=== PATIENT | female | born 2005 | race Caucasian/White ===

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

== ENCOUNTER 2025-02-27 15:43 | Emergency (ER) | payer OTHER, SELFPAY ==
--- OUTSIDE RECORDS SUMMARY | 2025-01-28 14:00 | XMS_ITS | Encounter Summary ---
Author Organization [facility] Address [address] [place] [address] Care Team Providers Care Packer Name Role Phone Lenny Duncan MD Primary Care Provider [phone] Reason for Visit * Reason Comments Procedure Stim check and adjus tment Encounter Details Date Type Department Care Team (Latest Contact Info) Description 01/28/2025 2:00 PM EDT Procedure Visit [facility] - [facility] [address] [place] [id number] Pina Scott MD [address] [place] [address], [address] [place] [address] Gastroparesis (Primary Dx) Social History [...] as of this encounter Progress Notes * Costa Medina MA - 01/28/2025 2:00 PM EDT [facility] - [facility]INIC CLINIC NOTE Patient: Triny Velázquez Age: 19 y.o. Sex: female : 2005 Visit Date: 01/28/2025 Visit Type: Stim check and adjustment Procedure: MOTILITY PROCEDURES: Procedure: Stimulator Adjustment (changes made) Initial Settings: Stimulator On/Off: On Voltage (V): 3.1 Power (W): 330 Rate: 14 Cycle On (sec): 0.1 Cycle Off (sec): 5 End Settings: Stimulator On/Off: On Voltage (V): 5 Power (W): 330 Rate: 14 Cycle On (sec): 1 Cycle Off (sec): 4 Battery Status: Good Impedance (ohm): 447 Additional Comments: Stim has been adjusted by Dr Sonia Medina MA [facility] 01/28/2025 Cosigned by Pina Scott MD at 01/28/2025 4:10 PM EDT Associated attestation - Pina Scott MD - 01/28/2025 4:10 PM EDT Pt in office for stimulator interrogation and adjustment - completed as documented. Pina Scott MD [facility] 01/28/2025 documented in this encounter Plan of Treatment Upcoming Encounters Date Type Department Care Team (Late st Contact Info) Description 02/28/2025 11:30 AM EDT Office Visit [facility] - [facility] [address], [address] [place] [phone] 03/22/2025 10:30 AM EST [facility] [address] [address] [facility] [address], [address] [place] [phone] documented as of this encounter Visit Diagnoses Diagnosis Gastroparesis- Primary documented in this encounter Care Teams Packer Relationship Specialty Start Date End Date Lenny Duncan MD [address] [address] [address] [place] [address] PCP - General Internal Medicine 09/10/24 documented as of this encounter
[2025-02-27] VITALS (18 sets, daily range): BP systolic 152–208; BP diastolic 85–111; PULSE 73–122; RESP 16–18; TEMP 36.8; O2SAT 94–100; BMI 52.4
--- OUTSIDE RECORDS SUMMARY | 2025-02-27 15:55 | XMS_ITS | Encounter Summary ---
Author Organization [facility] Address [address] [place] [address] Care Team Providers Care Warehouse Laborer Name Role Phone Lenny Duncan MD Primary Care Provider Encounter Details Date Type Department Care Team (Latest Contact Info) Description 01/27/2025 Travel Social History Tobacco Use Types Packs/Day [...] Description 02/28/2025 11:30 AM EDT Office Visit [facility] - [facility] [address], [address] [place] [phone] 03/22/2025 10:30 AM EST Telemedicine [facility] - [facility] [address], [address] [place] [phone] documented as of this encounter Visit Diagnoses Not on filedocumented in this encounter Care Teams Warehouse Laborer Relationship Specialty Start Date End Date Lenny Duncan MD [address] [address] [address] [place] [address] PCP - General Internal Medicine 09/10/24 documented as of this encounter
--- OUTSIDE RECORDS SUMMARY | 2025-02-27 15:55 | XMS_ITS | Encounter Summary ---
Author Organization [facility] Address [address] [place] [address] Care Team Providers Care Career Technical Education Instructor Name Role Phone Lenny Duncan MD Primary Care Provider [phone] Reason for Visit * Reason Onset Date Comments Appointment 12/29/2024 Encounter Details Date Type Department Care Team ([facility] Contact Info) Description 12/29/2024 [facility] [address] [place] [address] Stephanie Keys PA [address] [place] [address], [address] [place] [address] Appointment Social History Tobacco Use Types Packs/Day Years [...] encounter Miscellaneous Notes * Telephone Encounter - Shan Suazo - 01/03/2025 8:37 AM EDT Call Back Number: [phone] Person calling (patient/caregiver/facility/etc): Patient's Mother- Genevieve Patient's provider: Stephanie Keys Patient called to schedule New pt appt with Stephanie Keys and there is no availability. The pthad a stim procedure done 12/27/24 and needs to be seen 30 days after procedure. Please advise. If request is urgent, was a warm transfer to the clinic attempted? []Yes [x]No If yes, please document the outcome of the warm transfer: If the caller reports any of the following symptoms STOP and WARM transfer to the office: Nausea/vomiting Abdominal pain Line issues GI bleeding - rectal bleeding; vomiting blood * Telephone Encounter - LILIANE Gavin - 12/29/2024 3:56 PM EDT Call Back Number: [phone] Person calling (patient/caregiver/facility/etc): Patient's Mother- Genevieve Patient's provider: Stephanie Keys Patient called to schedule New pt appt with Stephanie Keys and there is no availability. The pthad a stim procedure done 12/27/24 and needs to be seen 30 days after procedure. Please advise. If request is urgent, was a warm transfer to the clinic attempted? []Yes [x]No If yes, please document the outcome of the warm transfer: If the caller reports any of the following symptoms STOP and WARM transfer to the office: Nausea/vomiting Abdominal pain Line issues GI bleeding - rectal bleeding; vomiting blood documented in this encounter Plan of Treatment Upcoming Encounters Date Type Department Care Team (Late st Contact Info) Description 02/28/2025 11:30 AM EDT Office Visit [facility] [address] [place] [address] Stephanie Keys PA [address] [place] [address], [address] [place] [phone] 03/22/2025 10:30 AM EST [facility] [address] [address] Stephanie Keys PA [address] [place] [address], [address] [place] [address] documented as of this encounter Visit Diagnoses Not on filedocumented in this encounter Care Teams Career Technical Education Instructor Relationship Specialty Start Date End Date Lenny Duncan MD [address] [place] [address] PCP - General Internal Medicine 09/10/24 documented as of this encounter
--- OUTSIDE RECORDS SUMMARY | 2025-02-27 15:55 | XMS_ITS | Clinical Summary ---
Author Organization [facility] Address [address] [place] [address] Care Team Providers Care Matrix Inspector Name Role Phone Becca Sin APRN Primary Care Provider [phone] Allergies No known active allergies Medications Ipratropium-Alb [...] 1 tablet by mouth Daily. 30 tablet Active pantoprazole (PROTONIX) 40 MG EC tablet Take 1 tablet by mouth Daily. Active metoclopramide (REGLAN) 10 MG tablet Take [...] Date Type Department Care Team Description 12/22/2024 Telephone [facility] [address] [place] [address] Alexander Red, DO from Last 3 Months Social History Tobacco Use Types Packs/Day Years Used Date Smoking Tobacco: Never Smokeless Tobacco: Never Tobacco Cessation:Counseling Given: No Alcohol Use Standard Drinks/Week Comments Never 0 (1 standard drink = 0.6 oz pur e alcohol) [facility] Utilities Answer Date Recorded In the past 12 months has e [employer], gas, oil, or water [employer] threatened to shut off services in your [...] GED or equivalent No 10/01/2024 Preferred Language Amharic 10/01/2024 Comments No Sex and Gender Information [...] (1 o f 2 - Standard) 2021 ANNUAL PHYSICAL 11/19/2024 HEPATITIS C SCREENING 11/19/2024 INFLUENZA VACCINE 12/10/2024 07/07/2021, 03/05/2018 TDAP/TD VACCINES (2 - Td or Tdap) 12/31/2027 12/30/2017 Pneumococcal Vaccine 0-49 Completed 2007, 2005 MENINGOCOCCAL VACCINE Aged Out 12/30/2017 No adis lupe eligible based on patient's age to complete this topic HPV VACCINES Completed 06/30/2018, 12/30/2017 [facility] Subscriber Plan / Payer (Ef fective 2024-Present) Name:Triny Velázquez Relation to Subscriber:Child Name:Ernesto Velázquez Date of :1968 (Home) [address]: [address] [place], [place] [address] [phone] Payer ID:[id number] (NAIC) Group ID:[id number] Type:PARTICIPATING PROVIDER Address: [facility] [id number] [id number] Advance Directives * CPR (Attempt to Resuscitate) (Latest Code Status on File) Date Activated Date Inactivated Comments 10/01/2024 6:03 PM 10/04/2024 8:46 PM Question Answer Comments Code Status (Patient has no pulse and is not breathing): CPR (Attempt to Resuscitate) Medical Interventions (Patie nt has pulse or is breathing): Full Support Level Of Support Discussed With: Patient Care Teams Matrix Inspector Relationship Specialty Start Date End Date Becca Sin APRN [address] [place] [address] [place] [address] PCP - General Nurse Practitioner 10/01/24
--- OUTSIDE RECORDS SUMMARY | 2025-02-27 15:55 | XMS_ITS | Encounter Summary ---
Author Organization [facility] Address [address] [place] [address] Care Team Providers Care Wood Treating Inspector Name Role Phone Lenny Duncan MD Primary Care Provider [phone] Encounter Details Date Type Department Care Team (Late Contact Info) Description 01/03/2025 Orders Only [facility] - [facility] [address] [facility] [place] [address] Fernando Flores MD [address] [address] [address] [place] [address] Social History Tobacco Use Types Packs/Day Years [...] Encounters Date Type Department Care Team (Late Contact Info) Description 02/28/2025 11:30 AM EDT [facility] [address] [place] [address] Stephanie Keys PA [address] [place] [address] 03/22/2025 10:30 AM EST Telemedicine [facility] [address] [address] Stephanie Keys PA [address], [address] [place] [address] documented as of this encounter Procedures Procedure Name Priority Date/Time Associated Diagnosis Comments PATH SCANNED RESULT Routine 12/29/2024 9:38 AM EDT documented in this encounter Results * PATH Scanned Result (12/29/2024 9:38 AM EDT) Fernando Flores MD LAB OBSERVATION METHODS Final Result documented in this encounter Visit Diagnoses Not on filedocumented in this encounter Care Teams Wood Treating Inspector Relationship Specialty Start Date End Date Lenny Duncan MD [address] [facility] [address] [place] [address] PCP - General Internal Medicine 09/10/24 documented as of this encounter
--- OUTSIDE RECORDS SUMMARY | 2025-02-27 15:55 | XMS_ITS | Encounter Summary ---
Author Organization [facility] Address [address] [place] [address] Care Team Providers Care Electric Welder Name Role Phone Lenny Duncan MD Primary Care Provider [phone] Reason for Visit * Reason Onset Date Comments Results 12/22/2024 Encounter Details Date Type Department Care Team ([facility] [address] Contact Info) Description 12/22/2024 Results Follow-Up [facility] [address] [place] [address] Pina Scott MD [address] [facility], [address] [place] [address] LEONILA SCREEN,IFA,REFLEX TITER/PATTERN,REFLEX MPLX 11 [...] as of this encounter Miscellaneous Notes * Result Encounter Note - Lise Mayorga RN - 01/18/2025 3:32 PM EDT Xerox Machine Assembler called and reviewed labs with patient. documented in this encounter Plan of Treatment Upcoming Encounters Date Type Department Care Team (Late st Contact Info) Description 02/28/2025 11:30 AM EDT Office Visit [facility] [address] [address] Stephanie Keys PA [address] [place] [address], [address] [place] [address] 03/22/2025 10:30 AM EST Telemedicine [facility] [address] [address] Stephanie Keys [address], [address] [place] [address] documented as of this encounter Visit Diagnoses Not on filedocumented in this encounter Care Teams Electric Welder Relationship Specialty Start Date End Date Lenny Duncan MD [address] [address] [address] [place] [address] PCP - General Internal Medicine 09/10/24 documented as of this encounter
--- OUTSIDE RECORDS SUMMARY | 2025-02-27 15:55 | XMS_ITS | Encounter Summary ---
Author Organization [facility] Address [address] [place] [address] Care Team Providers Care Wool Spotter Name Role Phone Lenny Duncan MD Primary Care Provider [phone] Reason for Visit * Reason Onset Date Comments general 02/25/2025 Encounter Details Date Type Department Care Team ([facility] Contact Info) Description 02/25/2025 [facility] [address] [place] [address] Stephanie Keys [address], [address] [place] [address] general Social History Tobacco Use Types Packs/Day Years [...] encounter Miscellaneous Notes * Telephone Encounter - Dona Gilman - 02/25/2025 2:56 PM EDT Patient is on the schedule for 02/28. * Telephone Encounter - LILIANE Gavin - 02/25/2025 10:47 AM EDT Call Back Number: [phone] Person calling (patient/caregiver/facility/etc): Patient's Mother-Genevieve Patient's provider: Stephanie Keys Brief description of call: The patient's mom is requesting to speak with someone in regards to getting an appointment for a stim adjustment. Please advise. If request is urgent, was [...] Description 02/28/2025 11:30 AM EDT Office Visit [facility] [address] [address] Stephanie Keys [address], [address] [place] [phone] 03/22/2025 10:30 AM EST Telemedicine [facility] [address] [address] [address] Keys [address], [address] [address] documented as of this encounter Visit Diagnoses Not on filedocumented in this encounter Care Teams Wool Spotter Relationship Specialty Start Date End Date Lenny Duncan MD [address] [facility] [address] [place] [address] PCP - General Internal Medicine 09/10/24 documented as of this encounter
--- OUTSIDE RECORDS SUMMARY | 2025-02-27 15:55 | XMS_ITS | Clinical Summary ---
Author Organization [facility] Address [address] [facility] [address] [place] [address] Care Team Providers Care Bulb Grader Name Role Phone Lenny Duncan MD Primary Care Provider [phone] Allergies No known active allergies Medications escitalopram [...] Encounters Date Type Department Care Team Description 02/25/2025 Telephone [facility] - [facility] [address] [address] Stephanie Keys PA general 01/28/2025 2:00 PM EDT Procedure Visit [facility] [address] [facility] [address] [place] [address] Pina Scott MD Gastroparesis (Primary Dx) 01/27/2025 Travel 01/03/2025 Orders Only [facility] [address] [address] Jeanette Flores MD 12/29/2024 Telephone [facility] [address] [address] Stephanie Keys PA Appointment 12/27/2024 10:30 AM EDT External Surgery [facility] [address] [place] [phone] Jeanette Flores MD 12/27/2024 Orders Only [facility] [address] [address] Jeanette Flores MD 12/22/2024 Results Follow-Up [facility] [address] [facility] [address] [place] [address] Pina Scott MD LEONILA SCREEN,IFA,REFLEX TITER/PATTERN,REFLEX MPLX 11 AB CASCADA, Comprehensive metabolic panel, C-reactive protein, Additional followed-up results: 8 12/20/2024 Telephone [facility] [address] [facility] [address] [place] [address] Jeanette Flores MD 12/03/2024 2:20 PM EDT Telemedicine [facility] [address] [facility] 202 [place] [address] Jeanette Flores MD Idiopathic gastroparesis (Primary Dx) 12/02/2024 Travel from Last 3 Months Family History Medical History Relation Name Comments Diabetes Father Rashida Velázquez Heart attack Father Rashida Velázquez Hyperlipidemia Father Rashida Velázquez [...] Mother Genevieve Velázquez Hypertension Mother Genevieve Velázquez Diabetes Paternal Grandfather Abel Velázquez Hypertension Paternal Grandfather Abel Calderonnes Bipolar disorder Paternal Grandmother Elinor Eber Mental illness Paternal Grandmother Elinor Eber Depression Sister Mannie Velázquez Relation Name Status Comments Father Rashida Velázquez Alive Maternal Grandfather Maternal Grandmother Anamaria Betsy Mother Genevieve Velázquez Alive Paternal Grandfather Abel Velázquez Alive Paternal Grandmother Elinor Velázquez Alive [...] [facility] [address] [address] [place] [address] 03/22/2025 10:30 AM EST Telemedicine [facility] [address] [address] [facility] [address], [address] [place] [address] Health Maintenance Due Date Last Done Comments HIV Screening 2005 Hepatitis C Screening 2005 MMR Vaccines (1 of 1 - Standard series) 2006 Varicella Vaccines (1 of 2 - 13+ 2-dose series) 2018 HPV Vaccines (1 - 3-dose series) 2020 Meningococcal B Vaccine (1 o f 2 - Standard) 2021 Hepatitis B Screening 09/17/2023 Depression Risk Screening 05/12/2024 SDOH Screening 05/12/2024 DTaP/Tdap/Td Vaccines (1 - Tdap) 2024 Hepatitis B Vaccines (1 of 3 - 19+ 3-dose series) 2024 Pneumococcal Vaccine (1 of 2 - PCV) 2024 COVID-19 Vaccine (1 - 2023-2 5 season) 2025 Influenza Vaccine (#1) 2025 2, 03/05/2018 Diabetes Screening 12/27/2025 12/27/2024, 11/04/2024, 11/04/2024 Zoster Vaccines (1 of 2) 09/17/2055 BMI Intervention Completed 11/22/2024 HIB Vaccines Aged Out No longer eligi ble based on patient's age to complete this topic Hepatitis A Vaccines Aged Out No long er eligible based on patient's age to complete [...] Procedure Name Priority Date/Time Associated Diagnosis Comments CONSULTATION REPORT Routine 01/04/2025 7 :25 AM EDT PATH SCANNED RESULT Routine 12/29/2024 9 :38 AM EDT SURG SCANNED ORDER Routine 12/27/2024 3: 40 PM EDT SURGICAL PATHOLOGY REPORT Routine 12/27/2024 10:52 AM EDT BMP BASIC METABOLIC PANEL STAT 12/27/2024 9:59 AM EDT HCG, SERUM, QUALITATIVE STAT 12/27/2024 9:59 AM EDT AUTODIFF STAT 12/27/2024 9:59 AM EDT CBC AND DIFFERENTIAL STAT 12/27/2024 9:59 AM EDT from Last 3 Months Results * CONSULTATION REPORT (01/04/2025 7:25 AM EDT) 01/04/2025 7:25 AM EDT [facility] - 01/04/2025 7:25 AM EDT [address] [address]- Patient: TRINY VELÁZQUEZ : 2005 19 years Gender: Female Account: [id number] Admit: 01/03/2025 10:22 EDT Discharge: 01/03/2025 23:59 EDT Admitting: OLGA FAULKNER MD-PAT Attending: OLGA FAULKNER MD-PAT Pathology Reports Received: 01/04/2025 07:25 EDT 01/14/2025 14:10 EDT - Auth (Verified) CLINICAL HISTORY: Gastroparesis DIAGNOSIS: Stomach, wedge resection: - Fragments of muscularis propria with no pathologic abnormality. At the request of Dr. Lane, a gastroparesis evaluation was performed according to the approved protocol. -CD117: 9.0 -CD68: 2.5 -MCT: 0.5 -S100: 15.0 -Trichrome: 0 - All controls reacted appropriately. Gastroparesis Histopathology Protocol (Drs. Lane and Donny) CD117 Staining Objective : Quantify interstitial cells of Cajal (ICC) in the inner muscular layer only Method : Average counts over 10 high-power mora (HPF) CD68 Staining Objective : Quantify macrophages within ganglia Method : Average counts over 10 HPF Mast cell tryptase (MCT) staining Objective : Quantify mast cells per HPF in the muscularis propria Method : Average counts over 10 HPF S100 Staining Objective : Quantify nerve nuclei in the inner muscular layer only Method : Average counts over 10 HPF Trichrome stain evaluation Objective : Assess the presence or absence of fibrosis in the muscularis propria Report Request ID: [id number] 01/14/2025 14:13 [place] [address]- Patient: TRINY VELÁZQUEZ : 2005 19 years Gender: Female Account: [id number] Admit: 01/03/2025 10:22 EDT Discharge: 01/03/2025 23:59 EDT Admitting: OLGA FAULKNER MD-PAT Attending: OLGA FAULKNER MD-PAT Pathology Reports Received: 01/04/2025 07:25 EDT DIAGNOSIS: Possible outcomes : fibrosis, no fibrosis or indeterminate Electronically signed by SEUN DAWSON Verified: 01/14/25 Signing Location: [facility], [address], [place] [address] SPECIMEN(S) RECEIVED: Materials (listed below) are received in review/consultation from Olga Faulkner MD. . [facility], [facility] [place], [address], Ph# [phone], Fax # [phone]. Corresponding pathology report(s) also received. Accession # Collected Received Slides Blocks Unstained [id number] 12/27/2024 01/04/2025 3 1 0 Block previously labeled, [id number] , now labeled, [id number] . Review/Consult performed at the request of Olga Faulkner MD. DISCLAIMER: I attest that I examined the relevant preparations for the specimens and rendered the diagnosis(es). CPT: 88625, 97321 x4, 02776 Technical testing performed at [facility], [address] [place] [address] Test systems have been developed and their performance characteristics determined by the [facility] ([facility]). Some tests have not been cleared or approved by the U.S. Food and Drug Administration (FDA). The FDA has determined that such clearance or approval is not necessary. These tests are used for clinical purposes and should not be regarded as investigational or for research. This laboratory is certified under the Clinical Laboratory Improvement Amendments of 1988 (CLIA) as qualified to perform high complexity clinical laboratory testing. Unless otherwise specified, controls reacted appropriately. The microscopic evaluation in this report may have been rendered in whole, or in part, by analyzing high-resolution digital images (whole slide images) on the [employer] Digital Pathology Platform validated at [facility]. Report Request ID: [id number] 01/14/2025 14:13 EDT us Olga Faulkner MD LAB PATHOLOGY ORDERABLES F inal Result [facility] [address] [place] [address], * PATH Scanned Result (12/29/2024 9:38 AM EDT) us Jeanette Flores MD LAB OBSERVATION METHODS Final Result * SURG SCANNED ORDER (12/27/2024 3:40 PM EDT) us Jeanette Flores MD IN CLINIC/BEDSIDE ORDERABLES F inal Result * Surgical Pathology Report (12/27/2024 10:52 AM EDT) 12/27/2024 10:5 2 AM EDT [facility] - 12/27/2024 10:52 AM EDT [address] [place] [address]- Patient: TRINY VELÁZQUEZ : 2005 19 years Gender: Female Account: [id number] Admit: 12/27/2024 08:41 EDT Discharge: 12/27/2024 23:59 EDT Admitting: JEANETTE FLORES MD-SUR Attending: JEANETTE FLORES MD-SUR Pathology Reports Received: 12/27/2024 13:45 EDT 12/28/2024 12:46 EDT - Auth (Verified) SPECIMEN: A. Gastric biopsy. CLINICAL HISTORY: Pre-op diagnosis: Idiopathic gastroparesis. DIAGNOSIS: GASTRIC WEDGE, BIOPSY: -UNREMARKABLE SMOOTH MUSCLE; NO DEFINITE GASTRIC EPITHELIUM IDENTIFIED (SEE COMMENT). Electronically signed by [facility] Verified: 12/28/24 Signing Location: [facility], [address] [place] [address] COMMENT: Case submitted for gastroparesis study, as requested MICROSCOPIC DESCRIPTION: A microscopic examination has been performed. GROSS DESCRIPTION: Received in formalin designated gastric biopsy is a curved 1.1 x 0.4 x 0.3 cm segment of glistening pink-ramirez serosa, containing a curved C-shaped 2.5 cm row of surgical kalpesh. The tissue is trimmed from the staple line and is opened to reveal apparent gastric mucosa and a small area of red discoloration. Tissue is submitted in toto in a single cassette. CC /CC /CC DISCLAIMER: I attest that I examined the relevant preparations for the specimens and rendered the diagnosis(es). CPT: 5736052.. Report Request ID: [id number] 12/28/2024 12:46 [address] [facility] [place] [address]- Patient: TRINY VELÁZQUEZ : 2005 19 years Gender: Female Account: [id number] Admit: 12/27/2024 08:41 EDT Discharge: 12/27/2024 23:59 EDT Admitting: JEANETTE FLORES MD-SUR Attending: JEANETTE FLORES MD-SUR Pathology Reports Received: 12/27/2024 13:45 EDT DISCLAIMER: Selected block for future studies: _ Technical testing performed at [facility], [address] [place] [address] Report Request ID: [id number] 12/28/2024 12:46 EDT Jeanette Flores MD LAB PATHOLOGY ORDERABLES Final Result Performing Organization Address City/State/[facility] [place] [address], * (ABNORMAL) AUTODIFF (12/27/2024 9:59 AM EDT) NEUT % 59.7 34.0 - 75.0 % 12/27/2024 10:09 AM EDT [facility] Remisol 2.0 SS LYMPH % 24.9 17.0 - 53.0 % 12/27/2024 10:09 AM EDT [facility] Remisol 2.0 SS MONO % 13.3(H) 2.0 - 12.0 % 12/27/2024 10:09 AM EDT [facility] Remisol 2.0 SS EOS % 1.3 0.0 - 7.0 % 12/27/2024 10:09 AM EDT [facility] Remisol 2.0 SS BASO % 0.8 0.0 - 3.0 % 12/27/2024 10:09 AM EDT [facility] Remisol 2.0 SS NEUT # 5.1 1.5 - 7.1 x10(3)/ul 12/27/2024 10:09 AM EDT [facility] Remisol 2.0 SS LYMPH # 2.1 1.0 - 3.5 x10(3)/ul 12/27/2024 10:09 AM EDT [facility] Remisol 2.0 SS MONO # 1.1(H) 0.0 - 1.0 x10(3)/ul 12/27/2024 10:09 AM EDT [facility] Remisol 2.0 SS EOS # 0.1 0.0 - 0.7 x10(3)/ul 12/27/2024 10:09 AM EDT [facility] Remisol 2.0 SS BASO # 0.1 0.0 - 0.3 x10(3)/ul 12/27/2024 10:09 AM EDT [facility] Remisol 2.0 SS Blood 12/27/2024 9:59 AM EDT 12/27/2024 10:02 AM EDT [facility] LAB - 12/27/2024 10:09 AM EDT Ordered by Discern Expert. Performed by [facility], [address] [place] [address] us Jeanette Flores MD LAB BLOOD ORDERABLES Final Res ult [facility] [address] [place] [address], [facility] Remisol 2.0 SS Pathology Department [address] [place] [address] * (ABNORMAL) CBC With Differential (12/27/2024 9:59 AM EDT) WBC 8.5 4.0 - 10.8 x10(3)/ul 12/27/2024 10:09 AM EDT [facility] Remisol 2.0 SS RBC 5.40(H) 3.77 - 5.16 x10(6)/ul 12/27/2024 10:09 AM EDT [facility] Remisol 2.0 SS HGB 13.2 12.0 - 16.0 Gram/dL 12/27/2024 10:09 AM EDT [facility] Remisol 2.0 SS Hematocrit 40.3 35.0 - 45.0 % 12/27/2024 10:09 AM EDT [facility] Remisol 2.0 SS MCV 74.6(L) 79.4 - 94.8 fL 12/27/2024 10:09 AM EDT [facility] Remisol 2.0 SS MCH 24.4(L) 25.6 - 32.2 pg 12/27/2024 10:09 AM EDT [facility] Remisol 2.0 SS MCHC 32.7 32.3 - 36.5 Gram/dL 12/27/2024 10:09 AM EDT [facility] Remisol 2.0 SS RDW 15.7(H) 11.0 - 15.5 % 12/27/2024 10:09 AM EDT [facility] Remisol 2.0 SS Platelets 287 140 - 420 x10(3)/ul 12/27/2024 10:09 AM EDT [facility] Remisol 2.0 SS MPV 6.9(L) 8.7 - 12.0 fL 12/27/2024 10:09 AM EDT [facility] Remisol 2.0 SS SLIDE REVIEW NONE 12/27/2024 10:09 AM EDT [facility] Remisol 2.0 SS Blood 12/27/2024 9:59 AM EDT 12/27/2024 10:02 AM EDT [facility] LAB - 12/27/2024 10:09 AM EDT Performed by [facility], [address] [place] [address] us Jeanette Flores MD LAB BLOOD ORDERABLES Final Res ult [facility] [address] [place] [address], [facility] Remisol 2.0 SS Pathology Department [address] [place] [address] * hCG, serum, qualitative (12/27/2024 9:59 AM EDT) hCG Qual neg Negative 12/27/2024 10: 18 AM EDT [facility] SS Blood 12/27/2024 9:59 AM EDT 12/27/2024 10:02 AM EDT [facility] - 12/27/2024 10:18 AM EDT Performed by [facility], [address] [place] [address] us Kameron Law MD LAB BLOOD ORDERABLES Final Result [facility] [address] [place] [address], [facility] SS Pathology Department [address] [place] [address] * (ABNORMAL) Basic Metabolic Panel (12/27/2024 9:59 AM EDT) Glucose 94 74 - 109 mg/dL 12/27/2024 10:30 AM EDT [facility] Remisol 2.0 SS BUN 8 7 - 25 mg/dL 12/27/2024 10:30 AM EDT [facility] Remisol 2.0 SS Creatinine 0.84 0.60 - 1.20 mg/dL 12/27/2024 10:30 AM EDT [facility] Remisol 2.0 SS Sodium 136 136 - 145 mmol/L 12/27/2024 10:30 AM EDT [facility] Remisol 2.0 SS Potassium 2.8(A) 3.5 - 5.1 mmol/L 12/27/2024 10:30 AM EDT [facility] Remisol 2.0 SS Comment:Critical Result S_K: 2.8 Called to and read back by: PRADIP MORE at: 12/27/2024 10:30:13 by:NAD [id number] Chloride 91(L) 98 - 110 mmol/L 12/27/2024 10:30 AM EDT [facility] Remisol 2.0 SS CO2 33(H) 21 - 31 mmol/L 12/27/2024 10:30 AM EDT [facility] Remisol 2.0 SS Anion Gap 12.0(H) 2.0 - 11.0 12/27/2024 10:30 AM EDT [facility] Remisol 2.0 SS Calcium 9.7 8.6 - 10.2 mg/dL 12/27/2024 10:30 AM EDT [facility] Remisol 2.0 SS BUN/Creatinine Ratio 9.5 6.0 - 22.0 12/27/2024 10:30 AM EDT [facility] Remisol 2.0 SS EGFR 103 >=60 mL/min/1.7 3m2 12/27/2024 10:30 AM EDT [facility] Remisol 2.0 SS Comment:eGFR calculation per formed using the CKD-EPI 2020 equation (race variable excluded) Blood 12/27/2024 9:59 AM EDT 12/27/2024 10:02 AM EDT [facility] - 12/27/2024 10:30 AM EDT Performed by [facility], [address] [place] [address] Jeanette Flores MD LAB BLOOD ORDERABLES Final Res ult [facility] [address] [place] [address], [facility] Remisol 2.0 SS Pathology Department [address] [place] [address] from [place] [address] [place] [id number] JOSE HARDIN Care Teams Bulb Grader Relationship Specialty Start Date End Date Lenny Duncan MD [address] [facility] [address] [place] [address] PCP - General Internal Medicine 09/10/24
--- OUTSIDE RECORDS SUMMARY | 2025-02-27 15:55 | XMS_ITS | Encounter Summary ---
Author Organization [facility] Address [address] [place] [address] Care Team Providers Care Product Planner Name Role Phone Lenny Duncan MD Primary Care Provider [phone] Encounter Details Date Type Department Care Team (Late Contact Info) Description 12/27/2024 Orders Only [facility] [address] [facility] [address] [place] [address] Fernando Flores MD [address] [address] [address] [place] [address] Social History Tobacco Use Types [...] Description 02/28/2025 11:30 AM EDT [facility] [address] [facility] [address] [place] [address] Stephanie Keys PA [address] [facility] [place] [address] 03/22/2025 10:30 AM EST Telemedicine [facility] [address] [address] Stephanie Keys PA [address] [facility], [address] [place] [address] documented as of this encounter Procedures Procedure Name Priority Date/Time Associated Diagnosis Comments SURG SCANNED ORDER Routine 12/27/2024 3:40 PM EDT documented in this encounter Results * SURG SCANNED ORDER (12/27/2024 3:40 PM EDT) us Fernando Flores MD IN CLINIC/BEDSIDE ORDERABLES F inal Result documented in this encounter Visit Diagnoses Not on filedocumented in this encounter Care Teams Product Planner Relationship Specialty Start Date End Date Lenny Duncan MD [address] [facility] [address] [place] [address] PCP - General Internal Medicine 09/10/24 documented as of this encounter
--- NOTE | 2025-02-27 15:59 | ED_ITS ---
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 Indication:: Ultrasound-guided line placement Indication: - Difficult IV access, numerous unsuccessful pokes Identified structures: - Right basilic vein near the AC joint Location/access site: - Right basilic vein near the AC joint Vessel patency: - Patent Direct visualization? - Yes Impression: Successful 18 g catheter in left upper extremity cephalic vein Images were not saved to permanent archive The study was technically adequate Critical Care <GENEVIEVE Munoz - Last Filed: 02/27/25 21:52> Critical Care Time Critical Care Time: No
--- NOTE | 2025-02-27 16:33 | ECG_ITS ---
APPROVED REPORT Exam: Resting ECG HR:77 bpm ECG Measurements Heart Rate 77 AXES HI 116 P 51 QRSd 91 QRS 57 QT 388 T 31 QTc 420 Conclusion SINUS RHYTHM WITH SHORT HI INTERVAL NONSPECIFIC T-WAVE ABNORMALITY BORDERLINE ECG WARNING: DATA QUALITY MAY AFFECT INTERPRETATION UNCONFIRMED REPORT Electronically signed by : GENESIS BARROS, 03/01/2025 02:52:02
[2025-02-27 16:51] LABS: Hematocrit 40.1 % (37.0-47.0); Hemoglobin 12.6 g/dL (12.2-16.2); Immature Granulocytes % 1.4 %; Mean Corpuscular HGB Conc 31.4 g/dL (31.8-35.4); Mean Corpuscular Hemoglobin 23.4 pg (27.0-31.2); Mean Corpuscular Volume 74.5 fl (81-99); Nucleated Red Blood Cells % 0 %; Platelet Count 395 K/mm3 (142-424); Red Blood Count 5.38 M/mm3 (4.20-5.40); Red Cell Distribution Width-SD 40.8 fL; White Blood Count 21.3 K/mm3 (4.5-13.0)
--- NOTE | 2025-02-27 16:51 | ECG_ITS ---
APPROVED REPORT Exam: Resting ECG HR:76 bpm ECG Measurements Heart Rate 76 AXES TN 116 P 43 QRSd 94 QRS 39 QT 409 T 12 QTc 439 Conclusion SINUS RHYTHM WITH SHORT TN INTERVAL NONSPECIFIC T-WAVE ABNORMALITY BORDERLINE ECG UNCONFIRMED REPORT Electronically signed by : GENESIS BARROS, 03/01/2025 02:51:52
[2025-02-27 16:57] LABS: Albumin Level 4.7 g/dl (3.5-5.0); Chloride 95 mmol/L (98-107)
[2025-02-27 16:58] LABS: Sodium 136 mmol/L (136-145)
[2025-02-27] MEDS: droPERidol 5MG/2ML VIAL 1.25 MG IV (16:59)
[2025-02-27 17:00] LABS: Alanine Aminotransferase 21 U/L (12-78); Anion Gap 18.9 mEq/L (5-15); Aspartate Amino Transferase 27 U/L (14-36); Blood Urea Nitrogen 13 mg/dl (7-17); Carbon Dioxide 25 mmol/L (22.0-30.0); Creatinine Clearance Estimated 114 mL/min (50-200); Creatinine,Serum 0.80 mg/dl (0.52-1.04); Estimated Glomerular Filt Rate 92 ml/min (>60); GFR (African American) 112 ML/MIN (>60)
[2025-02-27] MEDS: LACTATED RINGERS 1000ML 1,000 ML 999 ML IV (17:00)
[2025-02-27 17:01] LABS: Albumin/Globulin Ratio 1.4 (1.1-1.8); Alkaline Phosphatase 161 U/L (38-126); Bilirubin,Total 1.0 mg/dl (0.2-1.3); Calcium 9.3 mg/dl (8.4-10.2); Globulin 3.4 g/dL (1.3-3.2); Glucose 108 mg/dl (74-100); Lipase 37 U/L (23-300); Magnesium 1.6 mg/dl (1.6-2.3); Total Protein,Serum 8.1 g/dl (6.3-8.2)
[2025-02-27 17:03] LABS: Potassium 2.9 mmoL/L (3.5-5.1)
--- NOTE | 2025-02-27 17:07 | PC.NURSE ---
notified of 2.9 K+.
[2025-02-27 18:34] LABS: Microscopic, Urine URINE MICROSCOPIC (MICROSCOPIC)
[2025-02-27 18:37] LABS: Color,Urine YELLOW (Yellow); Glucose,Urine (UA) Negative (Negative); Ketones,Urine 3+ (Negative); Leukocyte Esterase,Urine Negative (Negative); PH,Urine 6.0 (5.0-8.5); Protein,Urine Negative (Negative); Specific Gravity, Urine 1.015 (1.005-1.030); Urine Pregnancy, HCG Qual. Negative (Negative); Urobilinogen,Urine 0.2 EU/dl (0.2)
--- NOTE | 2025-02-27 18:38 | CT_ITS ---
PROCEDURE INFORMATION: Exam: CT Abdomen And Pelvis With Contrast Exam date and time: 02/27/2025 7:55 PM Age: 19 years old Clinical indication: Nausea and vomiting; Abdominal pain; Additional info: Abd pain, n/v, d, history of gastric stimulator TECHNIQUE: Imaging protocol: Computed tomography of the abdomen and pelvis with contrast. Radiation optimization: All CT scans at this facility use at least one of these dose optimization techniques: automated exposure control; mA and/or kV adjustment per patient size (includes targeted exams where dose is matched to clinical indication); or iterative reconstruction. Contrast material: ISOVUE; Contrast volume: 75 ml; Contrast route: IV; COMPARISON: CT ABDOMEN PELVIS W CON 09/04/2024 9:30 AM FINDINGS: Tubes, catheters and devices: Gastric stimulator is noted. Liver: Mild fatty infiltration of the liver along the falciform ligament. Gallbladder and biliary ducts: Normal. No calcified stones. No ductal dilation. Pancreas: Normal. No ductal dilation. Spleen: Normal. No splenomegaly. Adrenal glands: Normal. No mass. Kidneys and ureters: Normal. No hydronephrosis. Stomach and bowel: The majority of the colon is collapsed, which is a nonspecific appearance that can correlate with colitis in the appropriate clinical setting. Appendix: Unremarkable appendix. Intraperitoneal space: Unremarkable. No free air. No significant fluid collection. Vasculature: Unremarkable. No abdominal aortic aneurysm. Lymph nodes: Unremarkable. No enlarged lymph nodes. Urinary bladder: Unremarkable as visualized. Reproductive: Unremarkable as visualized. Bones/joints: Unremarkable. No acute fracture. Soft tissues: Tiny fat containing umbilical hernia. IMPRESSION: The majority of the colon is collapsed, which is a nonspecific appearance that can correlate with colitis in the appropriate clinical setting.
[2025-02-27 18:42] LABS: Bilirubin,Urine 1+ (Negative)
[2025-02-27 18:48] LABS: Barbiturates Screen,Urine Negative ng/ml (<200); Benzodiazepines Screen,Urine Negative ng/ml (<200)
[2025-02-27 18:49] LABS: Amphetamine/Metha Screen,Urine Negative ng/ml (<1000)
[2025-02-27 18:51] LABS: Methadone Screen,Urine Negative ng/ml (<300)
[2025-02-27 18:52] LABS: Opiate Screen,Urine Negative ng/ml (<300); Phencyclidine Screen,Urine Negative ng/ml (<25)
[2025-02-27] MEDS: SODIUM CHLORIDE 0.9% 10ML SYR (RAD ONLY) 10 ML IV ×2 (19:55→20:19)
[2025-02-27] MEDS: IOPAMIDOL-370 (76%);100ML BOTTLE 75 ML IV (19:55)
[2025-02-27] MEDS: droPERidol 5MG/2ML VIAL 0.625 MG IV (20:18)
== END 2025-02-27 22:26 | disposition home or self-care (01) ==
PROVIDERS: Physician Assistant; Emergency Provider Student in an Organized Health Care Education/Training Program; PCP Nurse Practitioner Family
DX: R11.15 Cyclical vomiting syndrome unrelated to migraine (principal); F12.288 Cannabis dependence with other cannabis-induced disorder; E87.6 Hypokalemia; K31.84 Gastroparesis; E66.01 Morbid (severe) obesity due to excess calories; F17.290 Nicotine dependence, other tobacco product, uncomplicated
CPT/HCPCS: 74177; 80053; 80307; 81001; 81025; 83690; 83735; 85025; 93005; 96361; 96365; 96375; 96376; 99285; J1790; J3480; J7120; Q9967

== ENCOUNTER → 2025-04-27 20:36 | Outpatient (CLI) | payer OTHER, SELFPAY ==
--- OUTSIDE RECORDS SUMMARY | 2025-02-28 10:30 | XMS_ITS | Encounter Summary ---
Author Organization [facility] Address [address] [place] [address] Care Team Providers Care Theatre Arts Professor Name Role Phone Lenny Duncan MD Primary Care Provider [phone] Reason for Referral * Consultation (Routine) - Pending Review Specialty Diagnoses / Procedures Referred By Contac t Referred To Contact Diagnoses Colitis, not otherwise specified Procedures Colonoscopy Stephanie Keys PA [address] [place] [address], [address] [place] [phone] Phone: tel: fax: Referral ID Status Reason Start Date Expiration Date V isits Requested Visits Authorized [id number] Pending Review 02/28/2025 03/30/2026 1 1 Reason for Visit * Reason Comments Gastroparesis Encounter Details Date Type Department Care Team ([facility] Contact Info) Description 02/28/2025 11:30 AM EDT Office Visit [facility] [address] [address] Stephanie Keys PA [address] [place] [address], [address] [place] [phone] Colitis, not otherwise specified (Primary Dx); Gastroparesis Social History Tobacco Use Types Packs/Day Years Used Date Smoking Tobacco: Never Passive Smoke Exposure: Never Smokeless Tobacco: Current Alcohol Use Standard Drinks/Week Comments Not Currently 0 (1 standard drink = 0.6 oz pur e alcohol) AUDIT-C Answer Date Recorded Q1: How often do you have a drink containing alc ohol? Monthly or less 02/28/2025 Q2: How many drinks containi ng alcohol do you have on a typical day when you are drinking? 1 or 2 02/28/2025 Frequency of Binge Drinking Not on file 02/10 Comments No Sex and Gender Information Value Date Recorded Sex Assigned at Not on file Legal Sex Female 12:01 PM EST Gender Identity Not on file Sexual Orientation Not on file documented as of this encounter Last Filed Vital Signs Vital Sign Reading Time Taken Comments Blood Pressure 139/87 02/28/2025 11:46 AM EDT Pulse 101 02/28/2025 11:46 AM EDT Temperature 36.6 C (97.8 F) 02/28/2025 11:46 AM EDT Respiratory Rate 16 02/28/2025 11:46 AM EDT Oxygen Saturation 98% 02/28/2025 11:46 AM EDT Inhaled Oxygen Concentration - - Weight 153 kg (337 lb 3.2 oz) 02/28/2025 11:46 A M EDT Height 172.7 cm (5' 8 ) 02/28/2025 11:46 AM EDT Body Mass Index 51.27 02/28/2025 11:46 AM EDT documented in this encounter Functional Status * Alcohol Use Question Answer Date of Assessment Author Q1: How often do you have a drink containing alcohol? Monthly or less 02/28/2025 11:46 AM EDT Avery Martinez MA Q2: How many drinks containing alcohol do you have on a typical day when you are drinking? 1 or 2 02/28/2025 11:46 AM EDT Marycarmen Martinez MA documented as of this encounter Progress Notes * GENEVIEVE Crook - 02/28/2025 11:30 AM EDT [facility] CLINIC NOTE Patient: Triny Velázquez Age: 19 y.o. Sex: female : 2005 Visit Date: 02/28/2025 Visit Type: Follow-up Chief Complaint Patient presents with Gastroparesis History of Present Illness HPI: Pt is 19 YO F with idiopathic gastroparesis last seen in office November 2024 for gastric stimulator trial and presents today for follow up on implant of gastric stimulator completed by Dr. Flores 12/27/24. Pt had first adjustment made 01/28/25. Today patient notes that she has just started a new job 4 days ago and had her orientation that date which made her very anxious and she feels this has caused her to have a flare. She states in general she is still struggling to figure out what foods toeat; she states she was told following surgery that she would be able to eat anything she wanted towithout restriction but she has found she will still vomit after eating anything spicy or fried. She was seen in her local ER yesterday - do not have access to these records but pt states she was told her white count was elevated and she had a CT abdomen showing evidence of colitis. She notes sincesurgery if she lays on her abdomen she will experience a cramping sensation. She does request a work excuse for 02/25 and 02/26 as well as a letter requesting more frequent breaks. Symptom Scores (Patient-Reported): 02/28/2025 11:50 AM 11/22/2024 3:01 PM 11/10/2024 1:43 PM Upper Symptoms Vomiting 4 1 0 Nausea 4 1 1 Anorexia/Early Satiety 3 1 2 Bloating/Distension 4 0 2 Abdominal Pain 4 0 0 Total UGI Score 19 3 5 02/28/2025 11:50 AM 11/22/2024 3:01 PM 11/10/2024 1:43 PM Middle GI Symptoms GERD 4 1 1 Dysphagia 0 0 0 02/28/2025 11:50 AM 11/22/2024 3:01 PM 11/10/2024 1:43 PM Lower GI Symptoms Diarrhea 2 0 0 Constipation 2 0 0 Frequent Urination 1 0 0 Infrequent Urination 0 0 0 Total LGI Score 5 0 0 Fill-Out (then right click table and refresh) [...] Ambulatory Problems Past Medical History: Diagnosis Date Anxiety state 2017 Asthma 2022 Depressive disorder 2018 Esophageal reflux December 2023 Essential hypertension August 2024 H/O: deliberate self harm Liver disease Nausea with vomiting November 2024 Nonspecific abnormal electrocardiogram (ECG) (EKG) Jun 2024 Other, mixed, or unspecified drug abuse, unspecified use Unsure Sleep apnea Surgical History[1] Current Outpatient Medications Medication Instructions albuterol 108 (90 Base) MCG/ACT inhaler 2 puffs, Every 6 hours PRN Cariprazine HCl 1.5 mg, Daily escitalopram (LEXAPRO) 20 mg, Daily haloperidol (HALDOL) 5 mg, 3 times daily levocetirizine (XYZAL) 5 mg LORazepam (ATIVAN) 1 mg, Daily PRN Melatonin 5 mg metoclopramide (REGLAN) 10 mg, 2 times daily omeprazole (PRILOSEC) 40 mg, 2 times daily before meals ondansetron (ZOFRAN) 4 mg, Every 6 hours PRN pantoprazole (PROTONIX) 40 mg, 2 times daily RT Potassium Chloride 20 MEQ/15ML (10%) solution TAKE 15 ML BY MOUTH ONCE DAILY promethazine (PHENERGAN) 50 mg, Every 8 hours PRN traZODone (DESYREL) 50 mg, Daily Allergies[2] Social History[3] Family History[4] Review of Systems Review of Systems Constitutional: Negative. Respiratory: Negative. Cardiovascular: Negative. Gastrointestinal: As noted in HPI. Vitals Vitals: 02/28/25 1146 BP: 139/87 Pulse: 101 Resp: 16 Temp: 97.8 ??F (36.6 ??C) TempSrc: Temporal SpO2: 98% Weight: (!) 337 lb 3.2 oz (153 kg) Height: 5' 8 (1.727 m) Physical Exam Physical Exam Vitals and nursing note reviewed. Constitutional: Appearance: Normal appearance. She is obese. HENT: Head: Normocephalic and atraumatic. Right Ear: External ear normal. Left Ear: External ear normal. Nose: Nose normal. Mouth/Throat: Mouth: Mucous membranes are moist. Pulmonary: Effort: Pulmonary effort is normal. Abdominal: General: Abdomen is flat. Palpations: Abdomen is soft. Comments: GES in RLQ. Musculoskeletal: General: Normal range of motion. Cervical back: Normal range of motion. Skin: General: Skin is warm and dry. Neurological: Mental Status: She is alert and oriented to person, place, and time. Psychiatric: Mood and Affect: Mood normal. Behavior: Behavior normal. Thought Content: Thought content normal. Motility Procedures Data Lab Results Component Value Date HCT 40.3 12/27/2024 PLT 287 12/27/2024 NA 136 12/27/2024 K 2.8 (A) 12/27/2024 CL 91 (L) 12/27/2024 CO2 33 (H) 12/27/2024 BUN 8 12/27/2024 CREATININE 0.84 12/27/2024 AST 16 11/04/2024 ALT 18 11/04/2024 BILITOT [...] Service 5 Total Score 11 Impression 1. Colitis, not otherwise specified 2. Gastroparesis Plan Gastroparesis -s/p gastric stimulator implant 12/27/24; first adjustment made to settings 01/28/25 -gastric stimulator interrogated, settings increased -long discussion about diet - discussed that eventually the hope is she will be able to tolerate a wider variety of foods but for now encourage her to continue to follow GP diet; avoidance of triggerfoods, as well as eating smaller portions more frequently. Provided copy of GP diet in office Reported colitis on CT scan -per patient seen in local ER yesterday with CT showing colitis -will order colonoscopy for further evaluation -patient may decide to pursue locally, if she does she can let us know to cancel F/u as scheduled Nov - if sx stable okay to r/s to 3 months Will provide work excuse for 02/25 and 02/26 as well as additional letter requesting more frequent breaks as needed No orders of the defined types were placed in this encounter. No follow-ups on file. Complexity/Risk Attestation: Data Complexity: LIMITED - I ordered or reviewed >=2 of the following: unique lab(s)/test(s), unique source external note(s) OR obtained history from an independent historian Diagnosis Complexity: MODERATE - One or more chronic illnesses with exacerbation, progression, or side effects of treatment Encounter Risk: MODERATE - Diagnostic endoscopies with no identified risk factors Physician Micromatic Hone Operator Supervision Attestation: The Supervising Physician Pina Scott was available to me by telecommunication.. No new problems were diagnosed during the visit, any/all problem(s) managed today have been managed previously by a physician in this practice. GENEVIEVE Crook [facility] 02/28/2025 [1] Past Surgical History: Procedure Laterality Date ESOPHAGOGASTRODUODENOSCOPY September 2024 [2] No Known Allergies [3] Social History Tobacco Use Smoking status: Never Passive exposure: Never Smokeless tobacco: Current Vaping Use Vaping status: Former Substances: Nicotine, THC Substance Use Topics Alcohol use: Not Currently Drug use: Yes Types: Marijuana [4] Family History Problem Relation Name Age of Onset Ulcers Maternal Grandmother Anamaria Betsy Arthritis Maternal Grandmother Anamaria [place]auer[place] Diabetes Maternal Grandmother Anamaria Betsy Heart disease Maternal Grandmother Anamaria Betsy Hyperlipidemia Maternal Grandmother Anamaria Betsy Hypertension Maternal Grandmother Anamaria Betsy Miscarriages / Stillbirths Maternal Grandmother Anamaria [place]auer[place] Colon polyps Maternal Grandfather Asthma Mother Genevieve Velázquez Cancer Mother Genevieve Velázquez Diabetes Mother Genevieve Velázquez Hyperlipidemia Mother Genevieve Velázquez Hypertension Mother Genevieve Velázquez Diabetes Father Ernesto Caldreonnes Hyperlipidemia Father Ernesto Velázquez Hypertension Father Ernesto Velázquez Mental illness Paternal Grandmother Elinor Velázquez Bipolar disorder Paternal Grandmother Elinor Velázquez Depression Sister Mannie Velázquez Diabetes Paternal Grandfather Abel Velázquez Hypertension Paternal Grandfather Abel Velázquez Heart attack Father Ernesto Velázquez 30 - 39 documented in this encounter Plan of Treatment Scheduled Orders Name Type Priority Associated Diagnoses Orde r Schedule Colonoscopy Endoscopy Routine Colitis, not otherwise specified Expected: 02/28/2025 (Approximate), Expires: 02/28/2026 documented as of this encounter Visit Diagnoses Diagnosis Colitis, not otherwise specified- Primary Gastroparesis documented in this encounter Care Teams Theatre Arts Professor Relationship Specialty Start Date End Date Lenny Duncan MD [address] [place] [address] [address] [place] [id number] PCP - General Internal Medicine 09/10/24 documented as of this encounter
--- OUTSIDE RECORDS SUMMARY | 2025-03-03 15:16 | XMS_ITS | Encounter Summary ---
[facility] Address [address] [place] [address] Care Team Providers Care Convenience Store Clerk Name Role Phone SinBecca MARYANN Primary Care Provider [phone] Reason for Visit * Reason Comments Vomiting * Auth/Cert Specialty Diagnoses / Procedures Referred By Contac t Referred To Contact Diagnoses Intractable nausea and vomiting Referral ID Status Reason Start Date Expiration Date Visits Re quested Visits Authorized [id number] 1 1 Encounter Details Date Type Department Care Team (Late st Contact Info) Description 03/03/2025 4:16 PM EDT - 03/04/2025 4:52 PM EDT Hospital Encounter [facility] [address] [place] [id number] Martha Deras MD [address] [place] [address] Mustapha Canales, [address] [facility] [address] [place] [address] Eduar Emmanuel MD [address] [facility] [address] [place] [address] Intractable nausea and vomiting (Primary Dx); Gastroparesis; Hypokalemia; Dehydration; Cannabis use disorder Discharge Disposition: Home or Self Care Social History Tobacco Use Types Packs/Day Years Used Date Smoking Tobacco: Never Smokeless Tobacco: Never Alcohol Use Standard Drinks/Week Comments Yes 0 (1 standard drink = 0.6 oz pur e alcohol) [facility] Utilities Answer Date Recorded In the past 12 months has th e [employer] oil, or water [employer] threatened to shut off services in your home? No 10/01/2024 Exercise Vital Sign Answer Date Recorde [...] things needed for daily living? No 10/01/2024 AUDIT-C Answer Date Recorded Q1: How often do you have a drink containing alc ohol? Monthly or less 03/03/2025 Q2: How many drinks containi ng alcohol do you have on a typical day when you are drinking? 3 or 4 03/03/2025 Q3: How often do you have si x or more drinks on one occasion? Less than monthly 03/03/2025 Abuse Screen Answer Date Recorded Feels Unsafe at Home or Work/School no 03/03/2025 Feels Threatened by Someone no 02/10 Does Anyone Try to Keep You From Having Contact with Others or Doing Things Outside Your Home? no 03/03/2025 Physical Signs of Abuse Present no 03/03/2025 Housing Stability Answer Date Recorded Current Living Arrangements home 02/10 Potentially Unsafe Housing Conditions none 03/03/2025 Family and Community Support Answer Alonso e [...] Difficulty Concentrating, Remembering or Making Decisions no 03/03/2025 Difficulty Managing Errands Independently no 03/03/2025 Education Answer Date Recorded Do you want help with school or training? For example, starting or completing job training or getting a high school diploma, GED or equivalent No 10/01/2024 Preferred Language Taiwanese 10/01/2024 Comments No Sex and Gender Information Value Date Recorded Sex Assigned at Not on file Legal Sex Female 1:04 PM EDT Gender Identity Not on file Sexual Orientation Not on file documented as of this encounter Last Filed Vital Signs Vital Sign Reading Time Taken Comments Blood Pressure 168/114 03/04/2025 11:30 AM EDT Pulse 95 03/04/2025 12:00 PM EDT Temperature 36.2 C (97.2 F) 03/04/2025 11:30 AM EDT Respiratory Rate 20 03/04/2025 11:30 AM EDT Oxygen Saturation 95% 03/04/2025 10:00 AM EDT Inhaled Oxygen Concentration - - Weight 164 kg (361 lb 8.9 oz) 03/03/2025 2:24 PM EDT Height 172.7 cm (5' 8 ) 03/03/2025 2:24 PM EDT Body Mass Index 54.97 03/03/2025 2:24 PM EDT documented in this encounter Functional Status * Calculated C-SSRS Risk Score (Lifetime/Recent) Answer Date of Assessment Author No Risk Indicated 03/03/2025 5:54 PM EDT Luisa Marshall RN * Yarnell Suicide Severity Rating Scale (Screener/Recent Self-Report) Question Answer Date of Assessment Author 1. Wish to be (Past 1 Month) No 025 5:54 PM EDT Luisa Marshall RN 2. Non-Specific Active Suici apolonia Thoughts (Past 1 Month) No 03/03/2025 5:54 PM EDT Mago Marshall RN 6. Suicidal Behavior (Lifetime) No 5:54 PM EDT Luisa Marshall, CHIP documented as of this encounter Discharge Summaries * Eduar Emmanuel MD - 03/04/2025 4:06 PM EDT Images from the original note were not included. [facility] Medicine Services DISCHARGE SUMMARY Patient Name: Triny Velázquez : 2005 Date of Admission: 03/03/2025 4:16 PM Date of Discharge: 03/04/2025 Primary Care Physician: Becca Sin APRN Consults No orders found for last 30 day(s). Hospital Course Presenting Problem: nausea and vomiting Active Hospital Problems Diagnosis POA ??? Intractable nausea and vomiting [R11.2] Yes ??? Gastroparesis [K31.84] Yes Resolved Hospital Problems No resolved problems to display. Hospital Course: Triny Velázquez is a 19 y.o. female who presented to [facility] with a 1-day history of intractable nausea and vomiting. She has a history of chronic gastroparesis and was found to have significant hypokalemia upon arrival at our emergency department. She has a history of a gastric stimulator that was placed at the [facility] earlier this year in December. She has a known diagnosis of gastroparesis and has been under the care of gastroenterologists at [facility]. She also reports she sees GI Dr Alexis locally. In 12/2024, she had a gastric stimulator implanted. This is her first flare-up since the implantation. Her current symptoms began last , characterized by frequent vomiting. She sought emergency care in [facility] on Friday evening, where she received IV fluids and was later discharged. She was discharged due to a scheduled appointment at the motility clinic on Friday, during which her stimulator settings were adjusted. It is believed that anxiety may have triggered this episode per her mother, she has recently started a new job.This pollack her 10th hospitalization within a year per their report. She has an upcoming online visit with the motility clinic in 03/2025, during which a colonoscopy is planned. N/V H/o gastroparesis - the morning following admission, the patient requested to start a clear liquid diet, which was advanced to solid foods without difficulty. - UDS positive for THC -- discussed possible cannibis hyperemesis syndrome with the patient (and with the patient's permission, discussed with her mother as well). Advised complete cessation of marijuana and THC use. Ms Velázquez is resistant to this suggestion. She states she was previously diagnosedwith cannibis hyperemesis syndrome, but smokes marijuana much less now, and only when she feels it will help her eat. I suggested she discuss this further with her local transfer and pumphouse operator and with the motility clinic at [facility]. - follow up with her motility clinic as scheduled and with GI Dr Alexis at the next available appt. Hypokalemia - potassium replacement protocol initiated. K 3.1 on the morning of discharge, additional potassiumprovided before sending the patient home. - follow up with PCP next week with BMP Liver lesions - two hypodense liver lesions noted on CT abdomen pelvis. Discussed these with the patient and her mother -- they were aware of one previously, however they did not know there are two lesions now. MRI abdomen in September 2024 showed a 4.4 cm focus in the left hepatic lobe near the falciform ligament corresponding to the focal fatty infiltration. The MRI also showed 2.2 cm lesion in the right hepatic lobe near the gallbladder fossa compatible with a hepatic adenoma - suggested to the patient and mother that they followup with gastroenterology to review these CT findings with further imaging as needed. Patient and mother both say they will discuss these lesions with the patient's gastroenterology at their upcoming GI appointment Discharge Follow Up Recommendations for outpatient labs/diagnostics: CBC BMP at PCP followup Gastroenterology to review hypodense liver lesions at the patient's upcoming Day of Discharge HPI: Feels much better, eating without difficulty, no nausea. Very anxious to go home this afternoon. Review of Systems Gen: no fevers Vital Signs: Temp: [97.1 ??F (36.2 ??C)-98.9 ??F (37.2 ??C)] 97.2 ??F (36.2 ??C) Heart Rate: [64-119] 95 Resp: [18-20] 20 BP: (106-170)/(56-125) 168/114 Physical Exam: Non toxic, sitting up on the edge of the bed MM moist RRR CTAB Abd soft, NT Awake, speech clear Normal affect Pertinent and/or Most Recent Results LAB RESULTS: Lab 03/04/25 1123 03/03/25 1705 WBC 12.80* 16.78* HEMOGLOBIN 12.4 12.8 HEMATOCRIT 40.3 41.3 PLATELETS 277 318 NEUTROS ABS 11.42* 10.90* IMMATURE GRANS (ABS) 0.13* 0.16* LYMPHS ABS 0.85 3.74* MONOS ABS 0.36 1.88* EOS ABS 0.01 0.04 MCV 75.8* 74.4* Lab 03/04/25 1124 03/03/25 1705 SODIUM 138 135* POTASSIUM 3.1* 2.6* CHLORIDE 95* 89* CO2 26.7 25.4 ANION GAP 16.3* 20.6* BUN 6.1 7.8 CREATININE 0.63 0.78 EGFR 131.2 112.4 GLUCOSE 98 75 CALCIUM 9.5 9.9 MAGNESIUM 2.3* 2.0 PHOSPHORUS -- 2.7 Lab 03/04/25 1124 03/03/25 1705 TOTAL PROTEIN 7.4 7.2 ALBUMIN 4.4 4.5 GLOBULIN 3.0 2.7 ALT (SGPT) 15 20 AST (SGOT) 21 23 BILIRUBIN 0.8 0.8 ALK PHOS 109 111 LIPASE -- 17 Brief Urine Lab Results (Last result in the past 365 days) Color Clarity Blood Leuk Est Nitrite Protein CREAT Urine HCG 03/03/25 1512 Yellow Clear Negative Trace Negative Trace 03/03/25 1512 Negative Microbiology Results (last 10 days) No results found for the last [address] Abdomen Pelvis Without Contrast Result Date: 03/03/2025 CT ABDOMEN PELVIS WO CONTRAST Date of Exam: 03/03/2025 6:48 PM EDT Indication: Vomiting, upper abdominal pain. Comparison: MRI abdomen October 02, 2024, CT abdomen pelvis October 01, 2024 Technique: Axial CTimages were obtained of the abdomen and pelvis without the administration of contrast. Reconstructed coronal and sagittal images were also obtained. Automated exposure control and iterative construction methods were used. Findings: There is a hypodense area in the medial segment left lobe liver previously shown to reflect more focal fat adjacent to the falciform ligament. Additional lesion noted within the liver segment 5 by the gallbladder fossa is faintly noted measuring 2.7 cm. There is no abnormality the spleen, pancreas or adrenal glands. There is no obstructive uropathy. The bladder does not appear unusual for the degree of distention. No bowel obstruction or inflammatory bowel process is appreciated. Consultation There is a gastric stimulator device. There is no ascites. No pathologic lymphadenopathy is appreciated. An acute osseous abnormality is not definitely identified. Thereis some nonspecific small mesenteric lymph nodes which are of questionable significance this has been suggested. Impression: 1.There is a hypodense area within the medial segment left lobe liver previously shown to reflect more focal fat. Additional lesion within the liver segment 5 by the gallbladder fossa is faintly noted. 2.Gastric stimulator device. 3.There is some nonspecific small mesenteric lymph nodeswhich are of questionable significance. Electronically Signed: Peter Nicole MD 03/03/2025 7:21 PM EDT Workstation ID: [id number] I have personally reviewed the therapy plans: [] PT/OT/ ST Therapy Plans Plan for Follow-up of Pending Labs/Results: Discharge Details Discharge Medications Changes to Medications Instructions Start Date escitalopram 20 MG tablet Commonly known as: LEXAPRO What changed: when to take this 20 mg, Oral, Daily metoclopramide 10 MG tablet Commonly known as: REGLAN What changed: Another medication with the same name was removed. Continue taking this medication, and follow the directions you see here. 10 mg, 2 Times Daily Continue These Medications Instructions Start Date ALBUTEROL-IPRATROPIUM IN 90 mcg, Every 6 Hours PRN Cariprazine HCl 1.5 MG capsule capsule Commonly known as: VRAYLAR 1.5 mg, Nightly haloperidol 5 MG tablet Commonly known as: HALDOL 5 mg, 3 Times Daily PRN levocetirizine 5 MG tablet Commonly known as: XYZAL 5 mg, Every Evening linaclotide 145 MCG capsule capsule Commonly known as: LINZESS 145 mcg, Daily LORazepam 1 MG tablet Commonly known as: ATIVAN 1 mg, 3 Times Daily PRN melatonin 5 MG tablet tablet 5 mg, Nightly PRN ondansetron 4 MG tablet Commonly known as: ZOFRAN 4 mg, Every 6 Hours PRN pantoprazole 40 MG EC tablet Commonly known as: PROTONIX 1 tablet, 2 Times Daily promethazine 50 MG tablet Commonly known as: PHENERGAN 50 mg, Every 6 Hours PRN traZODone 50 MG tablet Commonly known as: DESYREL 25 mg, Nightly TUMS PO 200 mg, Daily PRN No Known Allergies Discharge Disposition: Home or Self Care Diet: Hospital: Diet Order Procedures ??? Diet: Liquid; Clear Liquid; Fluid Consistency: Thin (IDDSI 0) Standing Status: Standing Number of Occurrences: 1 Diets:: Liquid Liquid Diet:: Clear Liquid Fluid Consistency:: Thin (IDDSI 0) Activity: Restrictions or Other Recommendations: CODE STATUS: Code Status and Medical Interventions: CPR (Attempt to Resuscitate); Full Support Ordered at: 03/03/252025 Code Status (Patient has no pulse and is not breathing): CPR (Attempt to Resuscitate) Medical Interventions (Patient has pulse or is breathing): Full Support Level Of Support Discussed With: Patient No future appointments. Additional Instructions for the Follow-ups that You Need to Schedule Discharge Follow-up with PCP As directed Currently Documented PCP: Becca Sin APRN PCP Follow Up Details: follow up with PCP early next week with labs Discharge Follow-up with Specialty: follow up with GI Dr Alexis next available appointment As directed Specialty: follow up with GI Dr Alexis next available appointment Eduar Emmanuel MD 03/04/25 Time Spent on Discharge: I spent 35 minutes on this discharge activity which included: [id number] with the patient, reviewing the data in the system, coordination of the care with the nursing staff as well as consultants, documentation, and entering orders. documented in this encounter Discharge Instructions * Attachments The following attachments cannot be sent through Care Everywhere. * Slow Stomach Emptying (Gastroparesis): What to Know (Taiwanese) documented in this encounter Medications at Time of Discharge Calcium Carbonate Antacid (TUMS PO) Take 200 mg by mouth Daily As Needed. Cariprazine HCl (VRAYLAR) 1.5 MG capsule capsule Take 1 capsule by mouth Every Night. escitalopram (LEXAPRO) 20 MG tablet Take 1 tablet by mouth Daily. 30 tablet 10/05/2024 haloperidol (HALDOL) 5 MG tablet Take 1 tablet by mouth 3 (Three) Times a Day As Needed (gastroparesis flare up with zofran). Ipratropium-Albut mishel (ALBUTEROL-IPRATR OPIUM IN) Inhale 90 mcg Every 6 (Six) Hours As Needed. levocetirizine (XYZAL) 5 MG tablet Take 1 tablet by mouth Every Evening. LORazepam (ATIVAN) 1 MG tablet Take 1 tablet by mouth 3 (Three) Times a Day As Needed for Anxiety (gastroparesis flare up with phenergan). melatonin 5 MG tablet tablet Take 1 tablet by mouth At Night As Needed. metoclopramide (REGLAN) 10 MG tablet Take 1 tablet by mouth 2 (Two) Times a Day. ondansetron (ZOFRAN) 4 MG tablet Take 1 tablet by mouth Every 6 (Six) Hours As Needed for Nausea or Vomiting. pantoprazole (PROTONIX) 40 MG EC tablet Take 1 tablet by mouth 2 (Two) Times a Day. 10/30/2024 promethazine (PHENERGAN) 50 MG tablet Take 1 tablet by mouth Every 6 (Six) Hours As Needed for Nausea or Vomiting. traZODone (DESYREL) 50 MG tablet Take 0.5 tablets by mouth Every Night. linaclotide (LINZESS) 145 MCG capsule capsule Take 1 capsule by mouth Daily. documented as of this encounter H&P Notes * Mustapha Canales, DO - 03/03/2025 8:42 PM EDT Images from the original note were not included. [facility] Hospital Medicine Services HISTORY AND PHYSICAL Patient Name: Triny Velázquez : 2005 Primary Care Physician: Becca Sin APRN Date of admission: 03/03/2025 Subjective Subjective Chief Complaint: Intractable N/V HPI: Triny Velázquez is a 19 y.o. female Reason for Admit: Intractable nausea and vomiting. Karol Huynh is a 19-year-old female who presented to [facility] with a 1-day history of intractable nausea and vomiting. She has a history of chronic gastroparesis and was found to have significant hypokalemia upon arrival at our emergency department. She is currently receiving IV potassium replacement. She has a history of a gastric stimulator that was placed at the [facility] earlier this year in December. She has a known diagnosis of gastroparesis and has been under the care of gastroenterologists at [facility]. In 12/2024, she had a gastric stimulator implanted. This is her first flare-up since the implantation. Her current symptoms began last , characterized by frequent vomiting. She sought emergency care in [facility] on Friday evening, where she received IV fluids and later discharged. She was discharged due to a scheduled appointment at the motility clinic on Friday, during which herstimulator settings were adjusted. It is believed that anxiety may have triggered this episode per her mother, she has recently started a new job. This pollack her 10th hospitalization within a year per their report. She has an upcoming online visit with the motility clinic in 03/2025, during which acolonoscopy is planned. Despite taking Ativan, haloperidol, Zofran, and ibuprofen at home, she found no relief. Personal History No past medical history on file. Past Surgical History: Procedure Laterality Date ??? ENDOSCOPY N/A 10/03/2024 Procedure: ESOPHAGOGASTRODUODENOSCOPY; Surgeon: Linwood John MD; Location: [facility]; Service: Gastroenterology; Laterality: N/A; Family History: family history is not on file. Social History: reports that she has never smoked. She has never used smokeless tobacco. She reports current drug use. Drug: Marijuana. She reports that she does not drink alcohol. Social History Social History Narrative ??? Not on file Medications: Available home medication information reviewed. Calcium Carbonate Antacid, Cariprazine HCl, Ipratropium-Albuterol, LORazepam, Metoclopramide HCl, escitalopram, haloperidol, levocetirizine, linaclotide, melatonin, metoclopramide, ondansetron, pantoprazole, promethazine, and traZODone No Known Allergies Objective Objective Vital Signs: Temp: [98.2 ??F (36.8 ??C)] 98.2 ??F (36.8 ??C) Heart Rate: [87-139] 113 Resp: [20] 20 BP: (148-167)/(90-125) 151/125 Physical Exam General: Anxious, resting in bed on room air. Head: Normocephalic, atraumatic. Eyes: Extraocular motions are intact. Nose: Nares patent. Throat: Moist mucous membranes. Neck: Supple, trachea midline. Cardiac: Sinus tachycardia. Respiratory: Clear to auscultation bilaterally. No rhonchi or wheezing. Abdominal: Soft, epigastric tenderness, nondistended, obese. Extremities: No clubbing, cyanosis, or edema. Neurologic: Awake, alert, oriented x3. No obvious focal deficits. Moves all extremities equally. Psychiatric: Anxious, tearful. Result Review: I have personally reviewed the results from the time of this admission to 03/03/2025 20:51 EDT and agree with these findings: [x] Laboratory list / accordion [] Microbiology [x] Radiology [] EKG/Telemetry [] Cardiology/Vascular [] Pathology [x] Old records [] Other: Most notable findings include: K 2.[address] abd/plevis with gastric stimulator device, fatty liver LAB RESULTS: Lab 03/03/25 1705 WBC 16.78* HEMOGLOBIN 12.8 HEMATOCRIT 41.3 PLATELETS 318 NEUTROS ABS 10.90* IMMATURE GRANS (ABS) 0.16* LYMPHS ABS 3.74* MONOS ABS 1.88* EOS ABS 0.04 MCV 74.4* Lab 03/03/25 1705 SODIUM 135* POTASSIUM 2.6* CHLORIDE 89* CO2 25.4 ANION GAP 20.6* BUN 7.8 CREATININE 0.78 EGFR 112.4 GLUCOSE 75 CALCIUM 9.9 MAGNESIUM 2.0 PHOSPHORUS 2.7 Lab 03/03/25 1705 TOTAL PROTEIN 7.2 ALBUMIN 4.5 GLOBULIN 2.7 ALT (SGPT) 20 AST (SGOT) 23 BILIRUBIN 0.8 ALK PHOS 111 LIPASE 17 UA 10/01/2024 15:43 03/03/2025 15:12 Urinalysis Squamous Epithelial Cells, UA 3-6 7-12 Specific Turner, UA 1.007 1.017 Ketones, UA 40 mg/dL (2+) 40 mg/dL (2+) Blood, UA Negative Negative Leukocytes, UA Trace Trace Nitrite, UA Negative Negative RBC, UA 0-2 0-2 WBC, UA 3-5 3-5 Bacteria, UA None Seen 2+ Microbiology Results (last 10 days) No results found for the last [address] Abdomen Pelvis Without Contrast Result Date: 03/03/2025 CT ABDOMEN PELVIS WO CONTRAST Date of Exam: 03/03/2025 6:48 PM EDT Indication: Vomiting, upper abdominal pain. Comparison: MRI abdomen October 02, 2024, CT abdomen pelvis October 01, 2024 Technique: Axial CTimages were obtained of the abdomen and pelvis without the administration of contrast. Reconstructed coronal and sagittal images were also obtained. Automated exposure control and iterative construction methods were used. Findings: There is a hypodense area in the medial segment left lobe liver previously shown to reflect more focal fat adjacent to the falciform ligament. Additional lesion noted within the liver segment 5 by the gallbladder fossa is faintly noted measuring 2.7 cm. There is no abnormality the spleen, pancreas or adrenal glands. There is no obstructive uropathy. The bladder does not appear unusual for the degree of distention. No bowel obstruction or inflammatory bowel process is appreciated. Consultation There is a gastric stimulator device. There is no ascites. No pathologic lymphadenopathy is appreciated. An acute osseous abnormality is not definitely identified. Thereis some nonspecific small mesenteric lymph nodes which are of questionable significance this has been suggested. Impression: Impression: 1.There is a hypodense area within the medial segment left lobe liver previously shown to reflect more focal fat. Additional lesion within the liver segment 5 by the gallbladder fossa is faintly noted. 2.Gastric stimulator device. 3.There is some nonspecific small mesentericlymph nodes which are of questionable significance. Electronically Signed: Peter Nicole MD 03/03/2025 7:21 PM EDT Workstation ID: [id number] Assessment & Plan Assessment & Plan 1. Gastroparesis - History of chronic gastroparesis with intractable nausea and vomiting - Symptoms started last , characterized by frequent vomiting - Gastric stimulator placed in 12/2024, adjusted recently - Taking Ativan, haloperidol, Zofran, and phenergan at home without significant relief - Fluids and potassium will be administered to help alleviate symptoms - Advised to consume ice chips sparingly due to potential gastric irritation - Continued monitoring and follow-up with the motility clinic are recommended 2. Hypokalemia - Significant hypokalemia upon arrival at the emergency department - Currently receiving IV potassium replacement - Repeat BMP In the AM 3. Previous hyperemesis from THC - UDS added to previous urine sample - Hot showers to help with above symptoms from N/V - Did not ask patient specifically about THC use during my exam 4. Concerns for prolonged QT - Repeat EKG ordered, patient is anxious - Hold PRN Zofran for now - Alcohol swabs, decadron, and scopolamine patch ordered to assist with the above Intractable nausea and vomiting Gastroparesis VTE Prophylaxis: Pharmacologic VTE prophylaxis orders are present. CODE STATUS: Code Status and Medical Interventions: CPR (Attempt to Resuscitate); Full Support Ordered at: 03/03/252025 Code Status (Patient has no pulse and is not breathing): CPR (Attempt to Resuscitate) Medical Interventions (Patient has pulse or is breathing): Full Support Level Of Support Discussed With: Patient Expected Discharge Expected discharge date/ time has not been documented. Alexandra Canales DO 03/03/25 Patient or patient claims customer service representative verbalized consent for the use of Ambient Listening during the visit for chart documentation. documented in this encounter Nursing Notes * Isaias Marina RN - 03/04/2025 7:27 AM EDT Goal Outcome Evaluation: Outcome Evaluation: pt with persistent n/v when awake, scapolamine patch in place prn ativan and decadron given. pt showered in attempts to get some relief. documented in this encounter ED Notes * Martha Deras MD - 03/03/2025 2:23 PM EDT EMERGENCY DEPARTMENT ENCOUNTER Name: Triny Velázquez Date of encounter: 03/03/2025 PCP: Becca Sin APRN : 2005 Room Number: 11/11 JANELLE Provider Statement: Patient or patient claims customer service representative verbalized consent for the use of [employer] during the visit with Martha Deras MD for chart documentation. 03/03/2025 14:23 EDT Review of prior external notes (non-ED) -and- Review of prior external test results outside of thisencounter: 02/28/2025 reviewed most recent outpatient provider note, seen in gastroenterology clinic. Patient has a history of gastric stimulator for treatment of gastroparesis. She was also recentlyseen at an outside ER and diagnosed with colitis. HPI: Historians: Patient, mother Triny Velázquez is a 19 y.o. female who presents for evaluation of nausea and vomiting in thesetting of known gastroparesis. Patient is having trouble tolerating both solids and liquids with recurrent episodes of vomiting. She has taken multiple oral antiemetics including Zofran, Phenergan, Reglan but continues to have episodes of vomiting. She is not having any abdominal pain currently but does have upper abdominal pain with episodes of vomiting. REVIEW OF SYSTEMS A 14 point review of systems was conducted and is negative except for positives documented in HPI. PAST MEDICAL HISTORY No past medical history on file. PAST SURGICAL HISTORY Past Surgical History: Procedure Laterality Date ENDOSCOPY N/A 10/03/2024 Procedure: ESOPHAGOGASTRODUODENOSCOPY; Surgeon: Linwood John MD; Location: [facility]; Service: Gastroenterology; Laterality: N/A; FAMILY HISTORY No family history on file. SOCIAL HISTORY Social History Socioeconomic History Marital status: Single Tobacco Use Smoking status: Never Smokeless tobacco: Never Vaping Use Vaping status: Some Days Substances: Nicotine Substance and Sexual Activity Alcohol use: Never Drug use: Yes Types: Marijuana Sexual activity: Defer ALLERGIES No Known Allergies PHYSICAL EXAM I have reviewed the triage vital signs and nursing notes. OF EDT VITALS: BP - (!) 162/102 HR - 119 TEMP - 98.2 ??F (36.8 ??C) (Oral) O2 SATS - 96% Physical Exam Constitutional: General: She is not in acute distress. Appearance: She is obese. Comments: Making tears HENT: Head: Normocephalic and atraumatic. Mouth/Throat: Mouth: Mucous membranes are moist. Eyes: Conjunctiva/sclera: Conjunctivae normal. Pupils: Pupils are equal, round, and reactive to light. Cardiovascular: Rate and Rhythm: Normal rate and regular rhythm. Pulses: Normal pulses. Pulmonary: Effort: Pulmonary effort is normal. No respiratory distress. Abdominal: General: Abdomen is flat. There is no distension. Tenderness: There is no abdominal tenderness. Musculoskeletal: General: No swelling or deformity. Normal range of motion. Skin: General: Skin is warm and dry. Capillary Refill: Capillary refill takes less than 2 seconds. Neurological: General: No focal deficit present. Mental Status: She is alert and oriented to person, place, and time. Psychiatric: Mood and Affect: Mood normal. Behavior: Behavior normal. LAB RESULTS Labs from Hospital Encounter 03/03/25 Comprehensive Metabolic Panel Specimen: Blood Result Value Ref Range Glucose 75 65 - 99 mg/dL BUN 7.8 6.0 - 20.0 mg/dL Creatinine 0.78 0.57 - 1.00 mg/dL Sodium 135 (L) 136 - 145 mmol/L Potassium 2.6 (C) 3.5 - 5.2 mmol/L Chloride 89 (L) 98 - 107 mmol/L CO2 25.4 22.0 - 29.0 mmol/L Calcium 9.9 8.6 - 10.5 mg/dL Total Protein 7.2 6.0 - 8.5 g/dL Albumin 4.5 3.5 - 5.2 g/dL ALT (SGPT) 20 1 - 33 U/L AST (SGOT) 23 1 - 32 U/L Alkaline Phosphatase 111 39 - 117 U/L Total Bilirubin 0.8 0.0 - 1.2 mg/dL Globulin 2.7 gm/dL A/G Ratio 1.7 g/dL BUN/Creatinine Ratio 10.0 7.0 - 25.0 Anion Gap 20.6 (H) 5.0 - 15.0 mmol/L eGFR 112.4 >60.0 mL/min/1.73 Lipase Specimen: Blood Result Value Ref Range Lipase 17 13 - 60 U/L Urinalysis With Microscopic If Indicated (No Culture) - Urine, Clean Catch Specimen: Urine, Clean Catch Result Value Ref Range Color, UA Yellow Yellow, Straw Appearance, UA Clear Clear pH, UA 5.5 5.0 - 8.0 Specific Turner, UA 1.017 1.005 - 1.030 Glucose, UA Negative Negative Ketones, UA 40 mg/dL (2+) (A) Negative Bilirubin, UA Negative Negative Blood, UA Negative Negative Protein, UA Trace (A) Negative Leuk Esterase, UA Trace (A) Negative Nitrite, UA Negative Negative Urobilinogen, UA 1.0 E.U./dL 0.2 - 1.0 E.U./dL Magnesium Specimen: Blood Result Value Ref Range Magnesium 2.0 1.7 - 2.2 mg/dL Phosphorus Specimen: Blood Result Value Ref Range Phosphorus 2.7 2.5 - 4.5 mg/dL CBC Auto Differential Specimen: Blood Result Value Ref Range WBC 16.78 (H) 3.40 - 10.80 10*3/mm3 RBC 5.55 (H) 3.77 - 5.28 10*6/mm3 Hemoglobin 12.8 12.0 - 15.9 g/dL Hematocrit 41.3 34.0 - 46.6 % MCV 74.4 (L) 79.0 - 97.0 fL MCH 23.1 (L) 26.6 - 33.0 pg MCHC 31.0 (L) 31.5 - 35.7 g/dL RDW 16.4 (H) 12.3 - 15.4 % RDW-SD 41.4 37.0 - 54.0 fl MPV 8.5 6.0 - 12.0 fL Platelets 318 140 - 450 10*3/mm3 Neutrophil % 64.9 42.7 - 76.0 % Lymphocyte % 22.3 19.6 - 45.3 % Monocyte % 11.2 5.0 - 12.0 % Eosinophil % 0.2 (L) 0.3 - 6.2 % Basophil % 0.4 0.0 - 1.5 % Immature Grans % 1.0 (H) 0.0 - 0.5 % Neutrophils, Absolute 10.90 (H) 1.70 - 7.00 10*3/mm3 Lymphocytes, Absolute 3.74 (H) 0.70 - 3.10 10*3/mm3 Monocytes, Absolute 1.88 (H) 0.10 - 0.90 10*3/mm3 Eosinophils, Absolute 0.04 0.00 - 0.40 10*3/mm3 Basophils, Absolute 0.06 0.00 - 0.20 10*3/mm3 Immature Grans, Absolute 0.16 (H) 0.00 - 0.05 10*3/mm3 nRBC 0.0 0.0 - 0.2 /100 WBC Urinalysis, Microscopic Only - Urine, Clean Catch Specimen: Urine, Clean Catch Result Value Ref Range RBC, UA 0-2 None Seen, 0-2 /HPF WBC, UA 3-5 (A) None Seen, 0-2 /HPF Bacteria, UA 2+ (A) None Seen /HPF Squamous Epithelial Cells, UA 7-12 (A) None Seen, 0-2 /HPF Transitional Epithelial Cells, UA 0-2 0 - 2 /HPF Hyaline Casts, UA 0-2 None Seen /LPF Amorphous Crystals, UA Small/1+ None Seen /HPF Methodology Manual Light Microscopy POC Urine Specimen: Urine Result Value Ref Range HCG, Urine, QL Negative Negative Lot Number [id number] Internal Positive Control Positive Positive, Passed Internal Negative Control Negative Negative, Passed Expiration Date RADIOLOGY CT Abdomen Pelvis Without Contrast Result Date: 03/03/2025 CT ABDOMEN PELVIS WO CONTRAST Date of Exam: 03/03/2025 6:48 PM EDT Indication: Vomiting, upper abdominal pain. Comparison: MRI abdomen October 02, 2024, CT abdomen pelvis October 01, 2024 Technique: Axial CTimages were obtained of the abdomen and pelvis without the administration of contrast. Reconstructed coronal and sagittal images were also obtained. Automated exposure control and iterative construction methods were used. Findings: There is a hypodense area in the medial segment left lobe liver previously shown to reflect more focal fat adjacent to the falciform ligament. Additional lesion noted within the liver segment 5 by the gallbladder fossa is faintly noted measuring 2.7 cm. There is no abnormality the spleen, pancreas or adrenal glands. There is no obstructive uropathy. The bladder does not appear unusual for the degree of distention. No bowel obstruction or inflammatory bowel process is appreciated. Consultation There is a gastric stimulator device. There is no ascites. No pathologic lymphadenopathy is appreciated. An acute osseous abnormality is not definitely identified. Thereis some nonspecific small mesenteric lymph nodes which are of questionable significance this has been suggested. Impression: Impression: 1.There is a hypodense area within the medial segment left lobe liver previously shown to reflect more focal fat. Additional lesion within the liver segment 5 by the gallbladder fossa is faintly noted. 2.Gastric stimulator device. 3.There is some nonspecific small mesentericlymph nodes which are of questionable significance. Electronically Signed: Peter Nicole MD 03/03/2025 7:21 PM EDT Workstation ID: [id number] ORDERS PLACED DURING THIS VISIT: Orders Placed This Encounter Procedures CT Abdomen Pelvis Without Contrast Comprehensive Metabolic Panel Lipase Urinalysis With Microscopic If Indicated (No Culture) - Urine, Clean Catch Magnesium Phosphorus CBC Auto Differential Urinalysis, Microscopic Only - Urine, Clean Catch Potassium POC Urine ECG 12 Lead Tachycardia Telemetry Scan Insert Peripheral IV CBC & Differential MEDICATIONS GIVEN IN ER Medications sodium chloride 0.9 % flush 10 mL (has no administration in time range) potassium chloride 10 mEq in 100 mL IVPB (10 mEq Intravenous New Bag 03/03/25 6119) And potassium chloride 10 mEq in 100 mL IVPB (has no administration in time range) And potassium chloride 10 mEq in 100 mL IVPB (has no administration in time range) And potassium chloride 10 mEq in 100 mL IVPB (has no administration in time range) And potassium chloride 10 mEq in 100 mL IVPB (has no administration in time range) And potassium chloride 10 mEq in 100 mL IVPB (has no administration in time range) promethazine (PHENERGAN) 12.5 mg in sodium chloride 0.9 % 50 mL (has no administration in time range) sodium chloride 0.9 % bolus 1,000 mL (1,000 mL Intravenous New Bag 03/03/25 1726) metoclopramide (REGLAN) injection 10 mg (10 mg Intravenous Given 03/03/25 1727) PROCEDURES Procedures PROGRESS, DATA ANALYSIS, CONSULTS, AND MEDICAL DECISION MAKING All labs, radiology studies, and EKG's have been independently viewed and interpreted by me. Discussion below represents my analysis of pertinent findings related to patient's condition, differentialdiagnosis, treatment plan and final disposition. Differential Diagnoses include but is not limited to: Known gastroparesis is the most likely diagnosis. Bowel obstruction, gastritis, pancreatitis is considered though felt to be less likely. Patient's recent diagnosis of colitis may be a contributing factor. Diagnostic labs were obtained. IV fluids and antiemetics were ordered. ED Scoring Tools: ED Course: ED Course as of 03/03/251928 Stefanie Mar 03, [id number] Twelve-lead ECG independently interpreted by myself demonstrates normal sinus rhythm with a rate of 91, there is no identified ST segment elevation or depression. There is significant artifact from the patient's gastric stimulator [KB] 182 Laboratory workup independently interpreted by myself demonstrates significant hypokalemia, a leukocytosis [KB] 1925 CT scan of the abdomen and pelvis independently interpreted by myself demonstrates no acute abnormalities [KB] ED Course User Index [KB] Martha Deras MD Despite IV fluids and IV Reglan being administered patient continues to have ongoing vomiting. IV Phenergan was ordered. IV potassium repletion was initiated. In the setting of intractable vomiting with significant electrolyte derangements Hospital medicine was consulted for admission. CONSULTS Hospital medicine DIAGNOSIS Final diagnoses: Intractable nausea and vomiting Gastroparesis Hypokalemia Dehydration DISPOSITION ED Disposition ED Disposition Decision to Admit Condition -- Comment -- Please note that portions of this note were completed with a voice recognition program. Note Disclaimer: At [facility], we believe that sharing information builds trust and better relationships. You are receiving this note because you recently visited [facility]. It is possible you will see health information before a provider has talked with you about it. This kind of information can be easy to misunderstand. To help you fully understand what it means for your health, we urge you to discuss this note with your provider. Martha Deras MD 03/03/251928 documented in this encounter Miscellaneous Notes * Case Management/Social Work - Colette Crawford RN - 03/04/2025 11:45 AM EDT Continued Stay Note [facility] Patient Name: Triny Velázquez Today's Date: 03/04/2025 Admit Date: 03/03/2025 Plan: Home Discharge Plan Row Name 03/04/25 1359 Plan Plan Home Plan Comments I spoke with patient in regards to discharge planning. SHe reports being IADL, lives with family located in [facility]. She has [employer]. Her PCP is Michell Sin. She has transportation for home. med care manager is following for discharge planning needs. Final Discharge Disposition Code 01 - home or self-care Discharge Codes No documentation. Colette Crawford RN documented in this encounter Plan of Treatment Not on file documented as of this encounter Procedures Procedure Name Priority Date/Time Associated Diagnosis Comments MAGNESIUM Urgent 03/04/2025 11:24 AM EDT COMPREHENSIVE METABOLIC PANEL Urgent 03/04/2025 11:24 AM EDT CBC WITH AUTO DIFFERENTIAL Urgent 03/04/2025 11:[address] ABDOMEN PELVIS WO CONTRAST STAT 03/03/2025 7:01 PM EDT SCANNED - TELEMETRY 03/03/2025 6 :53 PM EDT ECG 12-LEAD STAT 03/03/2025 5:32 PM EDT CBC WITH AUTO DIFFERENTIAL STAT 03/03/2025 5:05 PM EDT CBC AND DIFFERENTIAL STAT 03/03/2025 5:05 PM EDT PHOSPHORUS STAT 03/03/2025 5:05 PM EDT MAGNESIUM STAT 03/03/2025 5:05 PM EDT LIPASE STAT 03/03/2025 5:05 PM EDT COMPREHENSIVE METABOLIC PANEL STAT 03/03/2025 5:05 PM EDT URINALYSIS, MICROSCOPIC ONLY STAT 03/03/2025 3:12 PM EDT URINALYSIS W/ MICROSCOPIC IF INDICATED (NO CULTURE) STAT 03/03/2025 3:12 PM EDT URINE DRUG SCREEN Add-On 03/03/2025 3:1 2 PM EDT FENTANYL, URINE Routine 03/03/2025 3:12 PM EDT POCT PEFORM URINE STAT 03/03/2025 3:12 PM EDT documented in this encounter Results * (ABNORMAL) Magnesium (03/04/2025 11:24 AM EDT) Magnesium 2.3(H) 1.7 - 2.2 mg/dL 03/04/2025 11:58 AM EDT [facility] Blood Venipuncture / Unknown 03/04/2025 11:24 AM EDT 03/04/2025 11:29 AM EDT Mustapha Canales DO LAB BLOOD ORDERABLES Final Res ult [facility]
[address] [place] [address], * (ABNORMAL) Comprehensive Metabolic Panel (03/04/2025 11:24 AM EDT) [facility] Signature Glucose 98 65 - 99 mg/dL 03/04/2025 11:58 AM EDT [facility] BUN 6.1 6.0 - 20.0 mg/dL 03/04/2025 11:58 AM EDT [facility] Creatinine 0.63 0.57 - 1.00 mg/dL 03/04/2025 11:58 AM EDT [facility] Sodium 138 136 - 145 mmol/L 03/04/2025 11:58 AM EDT [facility] Potassium 3.1(L) 3.5 - 5.2 mmol/L 03/04/2025 11:58 AM EDT [facility] Chloride 95(L) 98 - 107 mmol/L 03/04/2025 11:58 AM EDT [facility] CO2 26.7 22.0 - 29.0 mmol/L 03/04/2025 11:58 AM EDT [facility] Calcium 9.5 8.6 - 10.5 mg/dL 03/04/2025 11:58 AM EDT [facility] Total Protein 7.4 6.0 - 8.5 g/dL 03/04/2025 11:58 AM EDT [facility] Albumin 4.4 3.5 - 5.2 g/dL 03/04/2025 11:58 AM EDT [facility] ALT (SGPT) 15 1 - 33 U/L 03/04/2025 11:58 AM EDT [facility] AST (SGOT) 21 1 - 32 U/L 03/04/2025 11:58 AM EDT [facility] Alkaline Phosphatase 109 39 - 117 U/L 03/04/2025 11:58 AM EDT [facility] Total Bilirubin 0.8 0.0 - 1.2 mg/dL 03/04/2025 11:58 AM EDT [facility] Globulin 3.0 gm/dL 03/04/2025 11:58 AM EDT [facility] Comment:Calculated Result A/G Ratio 1.5 g/dL 03/04/2025 11:58 AM EDT [facility] BUN/Creatinine Ratio 9.7 7.0 - 25.0 03/04/2025 11:58 AM EDT [facility] Anion Gap 16.3(H) 5.0 - 15.0 mmol/L 03/04/2025 11:58 AM EDT [facility] eGFR 131.2 >60.0 mL/min/1.7 3 03/04/2025 11:58 AM EDT [facility] Blood Venipuncture / Unknown 03/04/2025 11:24 AM EDT 03/04/2025 11:29 AM EDT Narrative [facility] - 03/04/2025 11:58 AM EDT GFR Categories in Chronic Kidney [...] not include race as a factor us Mustapha Canales DO LAB BLOOD ORDERABLES Final Res ult [facility]
[address] [place] [address], * (ABNORMAL) CBC Auto Differential (03/04/2025 11:23 AM EDT) WBC 12.80(H) 3.40 - 10.80 10*3/mm3 03/04/2025 11:36 AM EDT [facility] RBC 5.32(H) 3.77 - 5.28 10*6/mm3 03/04/2025 11:36 AM [facility] Hemoglobin 12.4 12.0 - 15.9 g/dL 03/04/2025 11:36 AM [facility] Hematocrit 40.3 34.0 - 46.6 % 03/04/2025 11:36 AM [facility] MCV 75.8(L) 79.0 - 97.0 fL 03/04/2025 11:36 AM [facility] MCH 23.3(L) 26.6 - 33.0 pg 03/04/2025 11:36 AM [facility] MCHC 30.8(L) 31.5 - 35.7 g/dL 03/04/2025 11:36 AM [facility] RDW 15.8(H) 12.3 - 15.4 % 03/04/2025 11:36 AM [facility] RDW-SD 42.5 37.0 - 54.0 fl 03/04/2025 11:36 AM [facility] MPV 8.3 6.0 - 12.0 fL 03/04/2025 11:36 AM [facility] Platelets 277 140 - 450 10*3/mm3 03/04/2025 11:36 AM [facility] Neutrophil % 89.3(H) 42.7 - 76.0 % 03/04/2025 11:36 AM [facility] Lymphocyte % 6.6(L) 19.6 - 45.3 % 03/04/2025 11:36 AM [facility] Monocyte % 2.8(L) 5.0 - 12.0 % 03/04/2025 11:36 AM [facility] Eosinophil % 0.1(L) 0.3 - 6.2 % 03/04/2025 11:36 AM [facility] Basophil % 0.2 0.0 - 1.5 % 03/04/2025 11:36 AM [facility] Immature Grans % 1.0(H) 0.0 - 0.5 % 03/04/2025 11:36 AM EDT [facility] Neutrophils, Absolute 11.42(H) 1.70 - 7.00 10*3/mm3 03/04/2025 11:36 AM EDT [facility] Lymphocytes, Absolute 0.85 0.70 - 3.10 10*3/mm3 03/04/2025 11:36 AM EDT [facility] Monocytes, Absolute 0.36 0.10 - 0.90 10*3/mm3 03/04/2025 11:36 AM EDT [facility] Eosinophils, Absolute 0.01 0.00 - 0.40 10*3/mm3 03/04/2025 11:36 AM EDT [facility] Basophils, Absolute 0.03 0.00 - 0.20 10*3/mm3 03/04/2025 11:36 AM EDT [facility] Immature Grans, Absolute 0.13(H) 0.00 - 0.05 10*3/mm3 03/04/2025 11:36 AM EDT [facility] nRBC 0.0 0.0 - 0.2 /100 WBC 03/04/2025 11:36 AM EDT [facility] Blood Venipuncture / Unknown 03/04/2025 11:23 AM EDT 03/04/2025 11:29 AM EDT Mustapha Canales DO LAB BLOOD ORDERABLES Final Res ult [facility]
[address] [place] [address], * CT Abdomen Pelvis Without Contrast (03/03/2025 7:01 PM EDT) Anatomical Region Laterality Modality Abdomen, Pelvis N/A Computed Tomogra phy 03/03/2025 7:10 PM EDT Impressions 03/03/2025 7:21 PM EDT Impression: 1.There is a hypodense area within the medial segment left lobe liver previously shown to reflect more focal fat. Additional lesion within the liver segment 5 by the gallbladder fossa is faintly noted. 2.Gastric stimulator device. 3.There is some nonspecific small mesenteric lymph nodes which are of questionable significance. Electronically Signed: Peter Nicole MD 03/03/2025 7:21 PM EDT Workstation ID: [id number] Narrative 03/03/2025 7:[address] ABDOMEN PELVIS WO CONTRAST Date of Exam: 03/03/2025 6:48 PM EDT Indication: Vomiting, upper abdominal pain. Comparison: MRI abdomen October 02, 2024, CT abdomen pelvis October 01, 2024 Technique: Axial CT images were obtained of the abdomen and pelvis without the administration of contrast. Reconstructed coronal and sagittal images were also obtained. Automated exposure control and iterative construction methods were used. Findings: There is a hypodense area in the medial segment left lobe liver previously shown to reflect more focal fat adjacent to the falciform ligament. Additional lesion noted within the liver segment 5 by the gallbladder fossa is faintly noted measuring 2.7 cm. There is no abnormality the spleen, pancreas or adrenal glands. There is no obstructive uropathy. The bladder does not appear unusual for the degree of distention. No bowel obstruction or inflammatory bowel process is appreciated. Consultation There is a gastric stimulator device. There is no ascites. No pathologic lymphadenopathy is appreciated. An acute osseous abnormality is not definitely identified. There is some nonspecific small mesenteric lymph nodes which are of questionable significance this has been suggested. Procedure Note Peter Nicole MD - 03/03/2025 CT ABDOMEN PELVIS WO CONTRAST Date of Exam: 03/03/2025 6:48 PM EDT Indication: Vomiting, upper abdominal pain. Comparison: MRI abdomen October 02, 2024, CT abdomen pelvis October 01, 2024 Technique: Axial CT images were obtained of the abdomen and pelvis withoutthe administration of contrast. Reconstructed coronal and sagittal imageswere also obtained. Automated exposure control and iterative constructionmethods were used. Findings: There is a hypodense area in the medial segment left lobe liver previouslyshown to reflect more focal fat adjacent to the falciform ligament.Additional lesion noted within the liver segment 5 by the gallbladderfossa is faintly noted measuring 2.7 cm. There is no abnormality the spleen, pancreas or adrenal glands. There isno obstructive uropathy. The bladder does not appear unusual for thedegree of distention. No bowel obstruction or inflammatory bowel process is appreciated.Consultation There is a gastric stimulator device. There is no ascites. No pathologic lymphadenopathy is appreciated. An acute osseous abnormality is not definitely identified. There is some nonspecific small mesenteric lymph nodes which are ofquestionable significance this has been suggested. IMPRESSION: Impression: 1.There is a hypodense area within the medial segment left lobe liverpreviously shown to reflect more focal fat. Additional lesion within theliver segment 5 by the gallbladder fossa is faintly noted. 2.Gastric stimulator device. 3.There is some nonspecific small mesenteric lymph nodes which are ofquestionable significance. Electronically Signed: Peter Nicole MD 03/03/2025 7:21 PM EDT Workstation ID: [id number] Martha Deras MD IMG CT ORDERABLES Final Result * Telemetry Scan (03/03/2025 6:53 PM EDT) [facility] ORDERABLES Final Result * ECG 12 Lead Tachycardia (03/03/2025 5:32 PM EDT) QT Interval 474 ms ECG QTC Interval 583 ms ECG 03/03/2025 5:32 PM EDT 03/03/2025 5:43 PM EDT Narrative ECG - 03/03/2025 5:43 PM EDT Test Reason : Tachycardia Blood Pressure : */* mmHG Vent. Rate : 91 BPM Atrial Rate : 92 BPM P-R Int : 128 ms QRS Dur : 80 ms QT Int : 474 ms P-R-T Axes : 48 37 33 degrees QTcB Int : 583 ms Undetermined rhythm Prolonged QT Abnormal ECG When compared with ECG of 03-Oct-2024 10:40, Current undetermined rhythm precludes rhythm comparison, needs review Nonspecific T wave abnormality has replaced inverted T waves in Inferior leads QT has lengthened Confirmed by MD DERAS KYLE ([id number]) on 03/03/2025 5:43:19 PM Referred By: ED Confirmed By: MARTHA DERAS MD Procedure Note Martha Deras MD - 03/03/2025 Test Reason : Tachycardia Blood Pressure : */* mmHG Vent. Rate : 91 BPM Atrial Rate : 92 BPM P-R Int : 128 ms QRS Dur : 80 ms QT Int : 474 ms P-R-T Axes : 48 37 33 degrees QTcB Int : 583 ms Undetermined rhythm Prolonged QT Abnormal ECG When compared with ECG of 03-Oct-2024 10:40, Current undetermined rhythm precludes rhythm comparison, needs review Nonspecific T wave abnormality has replaced inverted T waves in Inferior leads QT has lengthened Confirmed by MD DERAS KYLE ([id number]) on 03/03/2025 5:43:19 PM Referred By: ED Confirmed By: MARTHA DERAS MD us Martha Deras MD ECG ORDERABLES Final Result ECG * (ABNORMAL) CBC Auto Differential (03/03/2025 5:05 PM EDT) WBC 16.78(H) 3.40 - 10.80 10*3/mm3 03/03/2025 5:37 PM EDT [facility] RBC 5.55(H) 3.77 - 5.28 10*6/mm3 03/03/2025 5:37 PM EDT [facility] Hemoglobin 12.8 12.0 - 15.9 g/dL 03/03/2025 5:37 PM EDT [facility] Hematocrit 41.3 34.0 - 46.6 % 03/03/2025 5:37 PM EDT [facility] MCV 74.4(L) 79.0 - 97.0 fL 03/03/2025 5:37 PM EDT [facility] MCH 23.1(L) 26.6 - 33.0 pg 03/03/2025 5:37 PM EDT [facility] MCHC 31.0(L) 31.5 - 35.7 g/dL 03/03/2025 5:37 PM EDT [facility] RDW 16.4(H) 12.3 - 15.4 % 03/03/2025 5:37 PM EDT [facility] RDW-SD 41.4 37.0 - 54.0 fl 03/03/2025 5:37 PM [facility] MPV 8.5 6.0 - 12.0 fL 03/03/2025 5:37 PM EDT [facility] Platelets 318 140 - 450 10*3/mm3 03/03/2025 5:37 PM EDT [facility] Neutrophil % 64.9 42.7 - 76.0 % 03/03[facility]2025 5:37 PM [facility] Lymphocyte % 22.3 19.6 - 45.3 % 03/03/2025 5:37 PM [facility] Monocyte % 11.2 5.0 - 12.0 % 03/03/2025 5:37 PM [facility] Eosinophil % 0.2(L) 0.3 - 6.2 % 03/03/2025 5:37 PM [facility] Basophil % 0.4 0.0 - 1.5 % 03/03/2025 5:37 PM [facility] Immature Grans % 1.0(H) 0.0 - 0.5 % 03/03/2025 5:37 PM [facility] Neutrophils, Absolute 10.90(H) 1.70 - 7.00 10*3/mm3 03/03/2025 5:37 PM EDT [facility] Lymphocytes, Absolute 3.74(H) 0.70 - 3.10 10*3/mm3 03/03/2025 5:37 PM [facility] Monocytes, Absolute 1.88(H) 0.10 - 0.90 10*3/mm3 03/03/2025 5:37 PM [facility] Eosinophils, Absolute 0.04 0.00 - 0.40 10*3/mm3 03/03/2025 5:37 PM EDT [facility] Basophils, Absolute 0.06 0.00 - 0.20 10*3/mm3 03/03/2025 5:37 PM EDT [facility] Immature Grans, Absolute 0.16(H) 0.00 - 0.05 10*3/mm3 03/03/2025 5:37 PM EDT [facility] nRBC 0.0 0.0 - 0.2 /100 WBC 03/03/2025 5:37 PM EDT [facility] Blood Venipuncture / Unknown 03/03/2025 5:05 PM EDT 03/03/2025 5:32 PM EDT us Martha Deras MD LAB BLOOD ORDERABLES Final Resul t Performing Organization Address City/[facility]/ZIP Co de Phone Number [facility]
[address] [place] [address], * Phosphorus (03/03/2025 5:05 PM EDT) Phosphorus 2.7 2.5 - 4.5 mg/dL 03/03/2025 6:00 PM EDT [facility] Blood Venipuncture / Unknown 03/03/2025 5:05 PM EDT 03/03/2025 5:32 PM EDT us Martha Deras MD LAB BLOOD ORDERABLES Final Resul t [facility]
[address] [place] [address], [place] [phone] * Magnesium (03/03/2025 5:05 PM EDT) Magnesium 2.0 1.7 - 2.2 mg/dL 03/03/2025 6:18 PM EDT [facility] Blood Venipuncture / Unknown 03/03/2025 5:05 PM EDT 03/03/2025 5:32 PM EDT Martha Deras MD LAB BLOOD ORDERABLES Final Resul t [facility]
[address] [place] [address], * Lipase (03/03/2025 5:05 PM EDT) Lipase 17 13 - 60 U/L 03/03/2025 6:00 PM EDT [facility] Blood Venipuncture / Unknown 03/03/2025 5:05 PM EDT 03/03/2025 5:32 PM EDT Martha Deras MD LAB BLOOD ORDERABLES Final Resul t Performing Organization Address City/[facility] de Phone Number [facility]
[address] [place] [address], * (ABNORMAL) Comprehensive Metabolic Panel (03/03/2025 5:05 PM EDT) Glucose 75 65 - 99 mg/dL 03/03/2025 6:20 PM EDT [facility] BUN 7.8 6.0 - 20.0 mg/dL 03/03/2025 6:20 PM EDT [facility] Creatinine 0.78 0.57 - 1.00 mg/dL 03/03/2025 6:20 PM EDT [facility] Sodium 135(L) 136 - 145 mmol/L 03/03/2025 6:20 PM EDT [facility] Potassium 2.6(LL) 3.5 - 5.2 mmol/L 03/03/2025 6:20 PM EDT [facility] Chloride 89(L) 98 - 107 mmol/L 03/03/2025 6:20 PM EDT [facility] CO2 25.4 22.0 - 29.0 mmol/L 03/03/2025 6:20 PM EDT [facility] Calcium 9.9 8.6 - 10.5 mg/dL 03/03/2025 6:20 PM EDT [facility] Total Protein 7.2 6.0 - 8.5 g/dL 03/03/2025 6:20 PM T [facility] Albumin 4.5 3.5 - 5.2 g/dL 03/03/2025 6:20 PM EDT [facility] ALT (SGPT) 20 1 - 33 U/L 03/03/2025 6:20 PM EDT [facility] AST (SGOT) 23 1 - 32 U/L 03/03/2025 6:20 PM EDT [facility] Alkaline Phosphatase 111 39 - 117 U/L 03/03/2025 6:20 PM EDT [facility] Total Bilirubin 0.8 0.0 - 1.2 mg/dL 03/03/2025 6:20 PM EDT [facility] Globulin 2.7 gm/dL 03/03/2025 6:20 PM T [facility] Comment:Calculated Result A/G Ratio 1.7 g/dL 03/03/2025 6:20 PM T [facility] BUN/Creatinine Ratio 10.0 7.0 - 25.0 03/03/2025 6:20 PM T [facility] Anion Gap 20.6(H) 5.0 - 15.0 mmol/L 03/03/2025 6:20 PM T [facility] eGFR 112.4 >60.0 mL/min/1.7 3 03/03/2025 6:20 PM T [facility] Blood Venipuncture / Unknown 03/03/2025 5:05 PM EDT 03/03/2025 5:32 PM EDT [facility] - 03/03/2025 6:20 PM EDT GFR Categories in Chronic Kidney Disease [...] does not include race as a factor Martha Deras MD LAB BLOOD ORDERABLES Final Resul t Performing Organization Address [facility] de Phone Number [facility]
[address] [place] [address], * Fentanyl, Urine - Urine, Clean Catch (03/03/2025 3:12 PM EDT) Fentanyl, Urine Negative Negative 03/03/2025 9:50 PM EDT [facility] Urine Urine specimen obtained by clean catch procedure / Unknown Collection / Unknown 03/03/2025 3:12 PM EDT 03/03/2025 3:29 PM EDT [facility] - 03/03/2025 9:50 PM EDT Negative Threshold: Fentanyl 5 ng/mL The normal value for the drug tested is negative. This report includes final unconfirmed screening results to be used for medical treatment purposes only. Unconfirmed results must not be used for non-medical purposes such as employment or legal testing. Clinical consideration should be applied to any drug of abuse test, particularly when unconfirmed results are used. Mustapha Canales DO URINE ORDERABLES Final Result Performing Organization Address [facility] de Phone Number [facility]
[address] [place] [address], * (ABNORMAL) Urine Drug Screen - Urine, Clean Catch (03/03/2025 3:12 PM EDT) THC, Screen, Urine Positive(A) Negative 03/03 9:10 PM EDT [facility] Phencyclidine (PCP), Urine Negative Negative 03/03/2025 9:[facility] Cocaine Screen, Urine Negative Negative 03/03/2025 9:10 PM EDT [facility] Methamphetamine, Ur Negative Negative 03/03/2025 9:10 PM EDT [facility] Opiate Screen Negative Negative 03/03/2025 9:10 PM EDT [facility] Amphetamine Screen, Urine Negative Negative 03/03/2025 9:10 PM EDT [facility] Benzodiazepine Screen, Urine Positive(A) Negative 03/03/2025 9:10 PM EDT [facility] Tricyclic Antidepressants Screen Negative Negative 03/03/2025 9:10 PM EDT [facility] Methadone Screen, Urine Negative Negative 03/03/2025 9:10 PM EDT [facility] Barbiturates Screen, Urine Negative Negative 03/03/2025 9:10 PM EDT [facility] Oxycodone Screen, Urine Negative Negative 03/03/2025 9:10 PM EDT [facility] Buprenorphine, Screen, Urine Negative Negative 03/03/2025 9:10 PM T [facility] Urine Urine specimen obtained by clean catch procedure / Unknown Collection / Unknown 03/03/2025 3:12 PM EDT 03/03/2025 3:29 PM EDT [facility] - 03/03/2025 9:10 PM EDT Cutoff For Drugs Screened: Amphetamines [...] test, particularly when unconfirmed results are used. Mustapha Canales DO URINE ORDERABLES Final Result [facility]
[address] [place] [address], * (ABNORMAL) Urinalysis, Microscopic Only - Urine, Clean Catch (03/03/2025 3:12 PM EDT) RBC, UA 0-2 None Seen, 0-2 /HPF 03/03/2025 3:50 PM EDT [facility] WBC, UA 3-5(A) None Seen, 0-2 /HPF 03/03/2025 3:50 PM EDT [facility] Bacteria, UA 2+(A) None Seen /HPF 03/03/2025 3:50 PM EDT [facility] Squamous Epithelial Cells, UA 7-12(A) None Seen, 0-2 /HPF 03/03/2025 3:50 PM EDT [facility] Transitional Epithelial Cells, UA 0-2 0 - 2 /HPF 03/03/2025 3:50 PM EDT [facility] Hyaline Casts, UA 0-2 None Seen /LPF 03/03/2025 3:50 PM EDT [facility] Amorphous Crystals, UA Small/1+ None Seen /HPF 03/03/2025 3:50 PM EDT [facility] Methodology Manual Light Microscopy 03/03/2025 3:50 PM EDT [facility] Urine Urine specimen obtained by clean catch procedure / Unknown Collection / Unknown 03/03/2025 3:12 PM EDT 03/03/2025 3:29 PM EDT Martha Deras MD URINE ORDERABLES Final Result [facility]
[address] [place] [address], * (ABNORMAL) Urinalysis With Microscopic If Indicated (No Culture) - Urine, Clean Catch (03/03/2025 3:12 PM EDT) Color, UA Yellow Yellow, Straw 03/03/2025 3:50 PM EDT [facility] Appearance, UA Clear Clear 03/03/2025 3:50 PM EDT [facility] pH, UA 5.5 5.0 - 8.0 03/03/2025 3:50 PM EDT [facility] Specific Turner, UA 1.017 1.005 - 1.030 03/03/2025 3:50 PM EDT [facility] Glucose, UA Negative Negative 03/03/2025 3:50 PM EDT [facility] Ketones, UA 40 mg/dL (2+)(A) Negative 03/03/2025 3:50 PM EDT [facility] Bilirubin, UA Negative Negative 03/03/2025 3:50 PM EDT [facility] Blood, UA Negative Negative 03/03/2025 3:50 PM EDT [facility] Protein, UA Trace(A) Negative 03/03/2025 3:50 PM EDT [facility] Leuk Esterase, UA Trace(A) Negative 03/03/2025 3:50 PM EDT [facility] Nitrite, UA Negative Negative 03/03/2025 3:50 PM EDT [facility] Urobilinogen, UA 1.0 E.U./dL 0.2 - 1.0 E.U./dL 03/03/2025 3:50 PM EDT [facility] Urine Urine specimen obtained by clean catch procedure / Unknown Collection / Unknown 03/03/2025 3:12 PM EDT 03/03/2025 3:29 PM EDT Martha Deras MD URINE ORDERABLES Final Result [facility]
[address] [place] [address], * POC Urine (03/03/2025 3:12 PM EDT) HCG, Urine, QL Negative Negative [facility] Lot Number [id number] [facility] Internal Positive Control Positive Positive, Passed [facility] Internal Negative Control Negative Negative, Passed [facility] Expiration Date [facility] Urine 03/03/2025 3:12 PM EDT us Martha Deras MD POINT OF CARE TEST ORDERABLES Fi nal Result [facility]
[address] [place] [address], [place] [phone] documented in this encounter Visit Diagnoses Diagnosis Intractable nausea and vomiting- Primary Intractable nausea and vomiting Gastroparesis Hypokalemia Hypopotassemia Dehydration Cannabis use disorder Gastroparesis documented in this encounter Admitting Diagnoses Diagnosis Intractable nausea and vomiting documented in this encounter Administered Medications Inactive Administered Medications - up to 3 most recent administrations Medication Order MAR Action Action Date Dose Rate Site acetaminophen (TYLENOL) 160 MG/5ML oral solution 650 mg 650 mg, Oral, Every 4 Hours PRN, Mild Pain, Starting on Stefanie 03/03/25 at 2021, If given for fever, use fever parameter: fever greater than 100.4 F Based on patient request - if ordered for moderate or severe pain, provider allows for administration of a medication prescribed for a lower pain scale. Do not exceed 4 grams of acetaminophen in a 24 hr period. Max dose of 2gm for AST/ALT greater than 120 units/L. If given for pain, use the following pain scale: Mild Pain = Pain Score of 1-3, CPOT 1-2 Moderate Pain = Pain Score of 4-6, CPOT 3-4 Severe Pain = Pain Score of 7-10, CPOT 5-8 acetaminophen (TYLENOL) 160 MG/5ML oral solution 650 mg 650 mg, Oral, Every 4 Hours PRN, Mild Pain, Starting on Stefanie 03/03/25 at 2023, If given for fever, use fever parameter: fever greater than 100.4 F Based on patient request - if ordered for moderate or severe pain, provider allows for administration of a medication prescribed for a lower pain scale. Do not exceed 4 grams of acetaminophen in a 24 hr period. Max dose of 2gm for AST/ALT greater than 120 units/L. If given for pain, use the following pain scale: Mild Pain = Pain Score of 1-3, CPOT 1-2 Moderate Pain = Pain Score of 4-6, CPOT 3-4 Severe Pain = Pain Score of 7-10, CPOT 5-8 acetaminophen (TYLENOL) suppository 650 mg 650 mg, Rectal, Every 4 Hours PRN, Mild Pain, Starting on Stefanie 03/03/25 at 2021, If given for fever, use fever parameter: fever greater than 100.4 F Based on patient request - if ordered for moderate or severe pain, provider allows for administration of a medication prescribed for a lower pain scale. Do not exceed 4 grams of acetaminophen in a 24 hr period. Max dose of 2gm for AST/ALT greater than 120 units/L. If given for pain, use the following pain scale: Mild Pain = Pain Score of 1-3, CPOT 1-2 Moderate Pain = Pain Score of 4-6, CPOT 3-4 Severe Pain = Pain Score of 7-10, CPOT 5-8 acetaminophen (TYLENOL) suppository 650 mg 650 mg, Rectal, Every 4 Hours PRN, Mild Pain, Starting on Stefanie 03/03/25 at 2023, If given for fever, use fever parameter: fever greater than 100.4 F Based on patient request - if ordered for moderate or severe pain, provider allows for administration of a medication prescribed for a lower pain scale. Do not exceed 4 grams of acetaminophen in a 24 hr period. Max dose of 2gm for AST/ALT greater than 120 units/L. If given for pain, use the following pain scale: Mild Pain = Pain Score of 1-3, CPOT 1-2 Moderate Pain = Pain Score of 4-6, CPOT 3-4 Severe Pain = Pain Score of 7-10, CPOT 5-8 acetaminophen (TYLENOL) tablet 650 mg 650 mg, Oral, Every 4 Hours PRN, Mild Pain, Starting on Stefanie 03/03/25 at 2021, If given for fever, use fever parameter: fever greater than 100.4 F Based on patient request - if ordered for moderate or severe pain, provider allows for administration of a medication prescribed for a lower pain scale. Do not exceed 4 grams of acetaminophen in a 24 hr period. Max dose of 2gm for AST/ALT greater than 120 units/L. If given for pain, use the following pain scale: Mild Pain = Pain Score of 1-3, CPOT 1-2 Moderate Pain = Pain Score of 4-6, CPOT 3-4 Severe Pain = Pain Score of 7-10, CPOT 5-8 acetaminophen (TYLENOL) tablet 650 mg 650 mg, Oral, Every 4 Hours PRN, Mild Pain, Starting on Stefanie 03/03/25 at 2023, If given for fever, use fever parameter: fever greater than 100.4 F Based on patient request - if ordered for moderate or severe pain, provider allows for administration of a medication prescribed for a lower pain scale. Do not exceed 4 grams of acetaminophen in a 24 hr period. Max dose of 2gm for AST/ALT greater than 120 units/L. If given for pain, use the following pain scale: Mild Pain = Pain Score of 1-3, CPOT 1-2 Moderate Pain = Pain Score of 4-6, CPOT 3-4 Severe Pain = Pain Score of 7-10, CPOT 5-8 bisacodyl (DULCOLAX) EC tablet 5 mg 5 mg, Oral, Daily PRN, Constipation, Use if polyethylene glycol is ineffective, Starting on Stefanie 03/03/25 at 2021, Use if no bowel movement after 12 hours. Swallow whole. Do not crush, split, or chew tablet. bisacodyl (DULCOLAX) suppository 10 mg 10 mg, Rectal, Daily PRN, Constipation, Use if bisacodyl oral is ineffective, Starting on Stefanie 03/03/25 at 2021, Use if no bowel movement after 12 hours. Hold for diarrhea Calcium Replacement - Follow Nurse / BPA Driven Protocol Open Order & [facility] Electrolyte Replacement Protocol Algorithm to View Details dexAMETHasone (DECADRON) injection 4 mg 4 mg, Intravenous, Every 6 Hours PRN, Nausea, Vomiting, Starting on Stefanie 03/03/25 at 2037, For IV administration. May be pushed over a minimum of 1 minute. Given 03/04/2025 5:40 AM EDT 4 mg enoxaparin sodium (LOVENOX) syringe 60 mg 60 mg, Subcutaneous, Every 12 Hours, First dose on Stefanie 03/03/25 at 2100, Give subcutaneous in abdomen only. Do not massage site after injection., Indications: VTE ProphylaxisIndications:VTE Prophylaxis Given 03/04/2025 8:45 AM EDT 60 mg Left Lower Abdomen Given 03/03/2025 10:05 PM EDT 60 mg R ight Lower Abdomen LORazepam (ATIVAN) tablet 1 mg 1 mg, Oral, Every 8 Hours PRN, Anxiety, Agitation, Starting on Stefanie 03/03/25 at 2024, For 5 days, (CONCHA) Caution: Look alike/sound alike drug alert Given 03/04/2025 9:13 AM EDT 1 mg Given 03/03/2025 10:05 PM EDT 1 mg Magnesium Standard Dose Replacement - Follow Nurse / BPA Driven Protocol Open Order & Select S Electrolyte Replacement Protocol Algorithm to View Details melatonin tablet 5 mg 5 mg, Oral, Nightly, First dose on Stefanie 03/03/25 at 2100 Given 03/03/2025 10:05 PM EDT 5 mg metoclopramide (REGLAN) injection 10 mg 10 mg, Intravenous, Once, On Stefanie 03/03/25 at 1444, For 1 dose, Doses of 10 mg or less can be given IV push undiluted over 1 to 2 minutes Given 03/03/2025 5:27 PM EDT 10 mg nitroglycerin (NITROSTAT) SL tablet 0.4 mg 0.4 mg, Sublingual, Every 5 Minutes PRN, Chest Pain, Starting on Stefanie 03/03/25 at 1953, If Pain Unrelieved After 3 Doses Notify MD May administer up to 3 doses per episode. Hold if SBP less than 100. ondansetron (ZOFRAN) injection 4 mg 4 mg, Intravenous, Every 6 Hours PRN, Nausea, Vomiting, Starting on Stefanie 03/03/25 at 2024, If BOTH ondansetron (ZOFRAN) and promethazine (PHENERGAN) are ordered use ondansetron first and THEN promethazine IF ondansetron is ineffective., On hold since Stefanie 03/03/2025 at 2034 until manually unheld ondansetron ODT (ZOFRAN-ODT) disintegrating tablet 4 mg 4 mg, Oral, Every 6 Hours PRN, Nausea, Vomiting, Starting on Stefanie 03/03/25 at 2024, If BOTH ondansetron (ZOFRAN) and promethazine (PHENERGAN) are ordered use ondansetron first and THEN promethazine IF ondansetron is ineffective. Place on tongue and allow to dissolve., On hold since Stefanie 03/03/2025 at 2034 until manually unheld Phosphorus Replacement - Follow Nurse / BPA Driven Protocol Open Order & [facility] Electrolyte Replacement Protocol Algorithm to View Details polyethylene glycol (MIRALAX) packet 17 g 17 g, Oral, Daily PRN, Constipation, Use if senna-docusate is ineffective, Starting on Stefanie 03/03/25 at 2021, Use if no bowel movement after 12 hours. Mix in 6-8 ounces of water. Use 4-8 ounces of water, tea, or juice for each 17 gram dose. potassium chloride (KLOR-CON M20) CR tablet 40 mEq 40 mEq, Oral, Every 4 Hours, First dose on Fri03/04/25 at 1330, For 3 doses, Do not crush or chew the capsules or tablets. The drug may not work as designed if the capsule or tablet is crushed or chewed. Swallow whole. Take with food. Given 03/04/2025 12:43 PM EDT 40 mEq potassium chloride 10 mEq in 100 mL IVPB 10 mEq, Intravenous, at 100 mL/hr, Administer over 60 Minutes, Once, On Stefanie 03/03/25 at 1839, For 1 dose, Dose 1 of 6 OUTPATIENT/NON-MONITORED UNITS: Potassium Chloride standard bolus infusion rate is a maximum of 10 mEq/hr on unmonitored patients MONITORED UNITS: Potassium Chloride standard bolus infusion rate is a maximum of 20 mEq/hr on ECG monitored patients ONLY Currently Infusing 03/03/2025 8:00 PM EDT 100 mL/hr New Bag 03/03/2025 6:49 PM EDT 10 mEq 100 mL/hr potassium chloride 10 mEq in 100 mL IVPB 10 mEq, Intravenous, at 100 mL/hr, Administer over 60 Minutes, Once, On Stefanie 03/03/25 at 1939, For 1 dose, Dose 2 of 6 OUTPATIENT/NON-MONITOR ED UNITS: Potassium Chloride standard bolus infusion rate is a maximum of 10 mEq/hr on unmonitored patients MONITORED UNITS: Potassium Chloride standard bolus infusion rate is a maximum of 20 mEq/hr on ECG monitored patients ONLY New Bag 03/03/2025 10:04 PM EDT 10 mEq 100 mL/hr potassium chloride 10 mEq in 100 mL IVPB 10 mEq, Intravenous, at 100 mL/hr, Administer over 60 Minutes, Once, On Stefanie 03/03/25 at 2039, For 1 dose, Dose 3 of 6 OUTPATIENT/NON-MONITOR ED UNITS: Potassium Chloride standard bolus infusion rate is a maximum of 10 mEq/hr on unmonitored patients MONITORED UNITS: Potassium Chloride standard bolus infusion rate is a maximum of 20 mEq/hr on ECG monitored patients ONLY New Bag 03/03/2025 11:56 PM EDT 10 mEq 100 mL/hr potassium chloride 10 mEq in 100 mL IVPB 10 mEq, Intravenous, at 100 mL/hr, Administer over 60 Minutes, Once, On Stefanie 03/03/25 at 2139, For 1 dose, Dose 4 of 6 OUTPATIENT/NON-MONITOR ED UNITS: Potassium Chloride standard bolus infusion rate is a maximum of 10 mEq/hr on unmonitored patients MONITORED UNITS: Potassium Chloride standard bolus infusion rate is a maximum of 20 mEq/hr on ECG monitored patients ONLY New Bag 03/04/2025 1:13 AM EDT 10 mEq 100 mL/hr potassium chloride 10 mEq in 100 mL IVPB 10 mEq, Intravenous, at 100 mL/hr, Administer over 60 Minutes, Once, On Stefanie 03/03/25 at 2239, For 1 dose, Dose 5 of 6 OUTPATIENT/NON-MONITOR ED UNITS: Potassium Chloride standard bolus infusion rate is a maximum of 10 mEq/hr on unmonitored patients MONITORED UNITS: Potassium Chloride standard bolus infusion rate is a maximum of 20 mEq/hr on ECG monitored patients ONLY New Bag 03/04/2025 2:20 AM EDT 10 mEq 100 mL/hr potassium chloride 10 mEq in 100 mL IVPB 10 mEq, Intravenous, at 100 mL/hr, Administer over 60 Minutes, Once, On Stefanie 03/03/25 at 2339, For 1 dose, Dose 6 of 6 OUTPATIENT/NON-MONITOR ED UNITS: Potassium Chloride standard bolus infusion rate is a maximum of 10 mEq/hr on unmonitored patients MONITORED UNITS: Potassium Chloride standard bolus infusion rate is a maximum of 20 mEq/hr on ECG monitored patients ONLY New Bag 03/04/2025 3:36 AM EDT 10 mEq 100 mL/hr Potassium Replacement - Follow Nurse / BPA Driven Protocol Open Order & Select [facility] Electrolyte Replacement Protocol Algorithm to View Details promethazine (PHENERGAN) 12.5 mg in sodium chloride 0.9 % 50 mL 12.5 mg, Intravenous, Administer over 45 Minutes, Once, On Stefanie 03/03/25 at 1929, For 1 dose, If multiple N/V medications ordered, use in the following order: Ondansetron, Prochlorperazine, Promethazine. Use PO unless patient refuses or patient unable to swallow. Nurse must verify IV line has blood return prior to administration. Nurse administers via large-bore vein (not hand or wrist) through running IV line at a point furthest from the patient s vein., [facility] PT requires failure of two alternative therapies prior to ordering promethazine IVPB. Has this patient failed two alternative therapies or cannot take oral/rectal promethazine? Yes, Please choose first prior alternative therapy that has failed: Zofran, Please choose second prior alternative therapy that has failed: Reglan New Bag 03/03/2025 7:52 PM EDT 12.5 mg scopolamine patch 1 mg/72 hr 1 patch, Transdermal - scopolamine, Administer over 72 Hours, Every 72 Hours, First dose on Stefanie 03/03/25 at 2100, Do not apply if patient has history of glaucoma. Not recommended for use if patient is older than 65. ([facility]) Medication Applied 03/03/2025 10:05 PM EDT 1 patch Behind Left Ear sennosides-docusate (PERICOLACE) 8.6-50 MG per tablet 2 tablet 2 tablet, Oral, 2 Times Daily PRN, Constipation, Starting on Stefanie 03/03/25 at 2022, Start bowel management regimen if patient has not had a bowel movement after 12 hours. sodium chloride 0.9 % bolus 1,000 mL 1,000 mL, Intravenous, at 2,000 mL/hr, Administer over 0.5 Hours, Once, On Stefanie 03/03/25 at 1444, For 1 dose New Bag 03/03/2025 5:26 PM EDT 1,000 mL 2000 mL/hr sodium chloride 0.9 % flush 10 mL 10 mL, Intravenous, As Needed, Line Care, Starting on Stefanie 03/03/25 at 1427 sodium chloride 0.9 % flush 10 mL 10 mL, Intravenous, Every 12 Hours Scheduled, First dose on Stefanie 03/03/25 at 2100 Given 03/03/2025 10:04 PM EDT 10 mL sodium chloride 0.9 % flush 10 mL 10 mL, Intravenous, As Needed, Line Care, Starting on Stefanie 03/03/25 at 2021 sodium chloride 0.9 % infusion 40 mL 40 mL, Intravenous, As Needed, Line Care, Starting on Stefanie 03/03/25 at 2021, Following administration of an IV intermittent medication, flush line with 40mL NS at 100mL/hr. sodium chloride 0.9 % infusion 100 mL/hr, Intravenous, Continuous, Starting on Stefanie 03/03/25 at 2041, For 1 day New Bag 03/03/2025 10:05 PM EDT 100 mL/hr 100 mL/hr documented in this encounter Active and Recently Administered Medications Times are shown in EDT. Scheduled Medication Order 03/02/2025 03/03/2025 03/04/2025 enoxaparin sodium (LOVENOX) syringe 60 mg 60 mg, Subcutaneous, Every 12 Hours, First dose on Stefanie 03/03/25 at 2100, Give subcutaneous in abdomen only. Do not massage site after injection., Indications: VTE Prophylaxis 2204 (Given - Provider: Isaias Marina RN) 0845 (Given - Provider: Amelia Griffin RN) melatonin tablet 5 mg 5 mg, Oral, Nightly, First dose on Stefanie 03/03/25 at 2100 2205 (Given - Provider: Isaias Marina RN) metoclopramide (REGLAN) injection 10 mg (COMPLETED) 10 mg, Intravenous, Once, On Stefanie 03/03/25 at 1444, For 1 dose, Doses of 10 mg or less can be given IV push undiluted over 1 to 2 minutes 1727 (Given - Provider: Luisa Marshall RN) potassium chloride (KLOR-CON M20) CR tablet 40 mEq 40 mEq, Oral, Every 4 Hours, First dose on Fri03/04/25 at 1330, For 3 doses, Do not crush or chew the capsules or tablets. The drug may not work as designed if the capsule or tablet is crushed or chewed. Swallow whole. Take with food. 1243 (Given - Provid er: Amelia Griffin RN) potassium chloride 10 mEq in 100 mL IVPB (COMPLETED)(Linked Group 1) 10 mEq, Intravenous, at 100 mL/hr, Administer over 60 Minutes, Once, On Stefanie 03/03/25 at 1839, For 1 dose, Dose 1 of 6 OUTPATIENT/NON-MONITORED UNITS: Potassium Chloride standard bolus infusion rate is a maximum of 10 mEq/hr on unmonitored patients MONITORED UNITS: Potassium Chloride standard bolus infusion rate is a maximum of 20 mEq/hr on ECG monitored patients ONLY 184 (New Bag - Provider: Luisa Marshall RN)1951 (Hold - Provider: Luisa Marshall RN - Reason: Loss of IV access)1999 (Currently Infusing - Provider: Luisa Marshall RN) potassium chloride 10 mEq in 100 mL IVPB (COMPLETED)(Linked Group 1) 10 mEq, Intravenous, at 100 mL/hr, Administer over 60 Minutes, Once, On Stefanie 03/03/25 at 1939, For 1 dose, Dose 2 of 6 OUTPATIENT/NON-MONITORED UNITS: Potassium Chloride standard bolus infusion rate is a maximum of 10 mEq/hr on unmonitored patients MONITORED UNITS: Potassium Chloride standard bolus infusion rate is a maximum of 20 mEq/hr on ECG monitored patients ONLY 2203 (New Bag - Provider: Isaias Marina RN) potassium chloride 10 mEq in 100 mL IVPB (COMPLETED)(Linked Group 1) 10 mEq, Intravenous, at 100 mL/hr, Administer over 60 Minutes, Once, On Stefanie 03/03/25 at 2039, For 1 dose, Dose 3 of 6 OUTPATIENT/NON-MONITORED UNITS: Potassium Chloride standard bolus infusion rate is a maximum of 10 mEq/hr on unmonitored patients MONITORED UNITS: Potassium Chloride standard bolus infusion rate is a maximum of 20 mEq/hr on ECG monitored patients ONLY 2355 (New Bag - Provider: Isaias Marina RN) potassium chloride 10 mEq in 100 mL IVPB (COMPLETED)(Linked Group 1) 10 mEq, Intravenous, at 100 mL/hr, Administer over 60 Minutes, Once, On Stefanie 03/03/25 at 2139, For 1 dose, Dose 4 of 6 OUTPATIENT/NON-MONITORED UNITS: Potassium Chloride standard bolus infusion rate is a maximum of 10 mEq/hr on unmonitored patients MONITORED UNITS: Potassium Chloride standard bolus infusion rate is a maximum of 20 mEq/hr on ECG monitored patients ONLY 0113 (New Bag - Prov ider: Isaias Marina RN) potassium chloride 10 mEq in 100 mL IVPB (COMPLETED)(Linked Group 1) 10 mEq, Intravenous, at 100 mL/hr, Administer over 60 Minutes, Once, On Stefanie 03/03/25 at 2239, For 1 dose, Dose 5 of 6 OUTPATIENT/NON-MONITORED UNITS: Potassium Chloride standard bolus infusion rate is a maximum of 10 mEq/hr on unmonitored patients MONITORED UNITS: Potassium Chloride standard bolus infusion rate is a maximum of 20 mEq/hr on ECG monitored patients ONLY 0220 (New Bag - Prov ider: Isaias Marina RN) potassium chloride 10 mEq in 100 mL IVPB (COMPLETED)(Linked Group 1) 10 mEq, Intravenous, at 100 mL/hr, Administer over 60 Minutes, Once, On Stefanie 03/03/25 at 2339, For 1 dose, Dose 6 of 6 OUTPATIENT/NON-MONITORED UNITS: Potassium Chloride standard bolus infusion rate is a maximum of 10 mEq/hr on unmonitored patients MONITORED UNITS: Potassium Chloride standard bolus infusion rate is a maximum of 20 mEq/hr on ECG monitored patients ONLY 0336 (New Bag - Prov ider: Isaias Marina RN) promethazine (PHENERGAN) 12.5 mg in sodium chloride 0.9 % 50 mL (COMPLETED) 12.5 mg, Intravenous, Administer over 45 Minutes, Once, On Stefanie 03/03/25 at 1929, For 1 dose, If multiple N/V medications ordered, use in the following order: Ondansetron, Prochlorperazine, Promethazine. Use PO unless patient refuses or patient unable to swallow. Nurse must verify IV line has blood return prior to administration. Nurse administers via large-bore vein (not hand or wrist) through running IV line at a point furthest from the patient s vein., [facility] PT requires failure of two alternative therapies prior to ordering promethazine IVPB. Has this patient failed two alternative therapies or cannot take oral/rectal promethazine? Yes, Please choose first prior alternative therapy that has failed: Miguel, Please choose second prior alternative therapy that has failed: Louielan 1951 (New Bag - Provider: Luisa Marshall RN) scopolamine patch 1 mg/72 hr 1 patch, Transdermal - scopolamine, Administer over 72 Hours, Every 72 Hours, First dose on Stefanie 03/03/25 at 2100, Do not apply if patient has history of glaucoma. Not recommended for use if patient is older than 65. ([facility]) 2204 (Medication Applied - Provider: Isaias Marina RN) 1652 (Due: Medication Removed - Provider: Automatic Discharge Provider - Comment: Time automatically adjusted from order being discontinued) sodium chloride 0.9 % bolus 1,000 mL (COMPLETED) 1,000 mL, Intravenous, at 2,000 mL/hr, Administer over 0.5 Hours, Once, On Stefanie 03/03/25 at 1444, For 1 dose 1726 (New Bag - Provider: Luisa Marshall, CHIP) sodium chloride 0.9 % flush 10 mL 10 mL, Intravenous, Every 12 Hours Scheduled, First dose on Stefanie 03/03/25 at 2100 2204 (Given - Provider: Isaias Marina RN) 0850 (Canceled Entry - Provider: Amelia Griffin RN) Continuous Medication Order 03/02/2025 03/03/2025 03/04/2025 sodium chloride 0.9 % infusion 100 mL/hr, Intravenous, Continuous, Starting on Stefanie 03/03/25 at 2042, For 1 day 2204 (New Bag - Provider: Isaias Marina RN) 1853 (Due: Order Ending - Provider: Automatic Discharge Provider - Comment: [Order ends at this time. Document the following action when infusion is complete: Stopped]) PRN Medication Order 03/02/2025 03/03/2025 03/04/2025 acetaminophen (TYLENOL) 160 MG/5ML oral solution 650 mg(Linked Group 2) 650 mg, Oral, Every 4 Hours PRN, Mild Pain, Starting on Stefanie 03/03/25 at 2021, If given for fever, use fever parameter: fever greater than 100.4 F Based on patient request - if ordered for moderate or severe pain, provider allows for administration of a medication prescribed for a lower pain scale. Do not exceed 4 grams of acetaminophen in a 24 hr period. Max dose of 2gm for AST/ALT greater than 120 units/L. If given for pain, use the following pain scale: Mild Pain = Pain Score of 1-3, CPOT 1-2 Moderate Pain = Pain Score of 4-6, CPOT 3-4 Severe Pain = Pain Score of 7-10, CPOT 5-8 acetaminophen (TYLENOL) 160 MG/5ML oral solution 650 mg(Linked Group 3) 650 mg, Oral, Every 4 Hours PRN, Mild Pain, Starting on Stefanie 03/03/25 at 2023, If given for fever, use fever parameter: fever greater than 100.4 F Based on patient request - if ordered for moderate or severe pain, provider allows for administration of a medication prescribed for a lower pain scale. Do not exceed 4 grams of acetaminophen in a 24 hr period. Max dose of 2gm for AST/ALT greater than 120 units/L. If given for pain, use the following pain scale: Mild Pain = Pain Score of 1-3, CPOT 1-2 Moderate Pain = Pain Score of 4-6, CPOT 3-4 Severe Pain = Pain Score of 7-10, CPOT 5-8 acetaminophen (TYLENOL) suppository 650 mg(Linked Group 2) 650 mg, Rectal, Every 4 Hours PRN, Mild Pain, Starting on Stefanie 03/03/25 at 2021, If given for fever, use fever parameter: fever greater than 100.4 F Based on patient request - if ordered for moderate or severe pain, provider allows for administration of a medication prescribed for a lower pain scale. Do not exceed 4 grams of acetaminophen in a 24 hr period. Max dose of 2gm for AST/ALT greater than 120 units/L. If given for pain, use the following pain scale: Mild Pain = Pain Score of 1-3, CPOT 1-2 Moderate Pain = Pain Score of 4-6, CPOT 3-4 Severe Pain = Pain Score of 7-10, CPOT 5-8 acetaminophen (TYLENOL) suppository 650 mg(Linked Group 3) 650 mg, Rectal, Every 4 Hours PRN, Mild Pain, Starting on Stefanie 03/03/25 at 2023, If given for fever, use fever parameter: fever greater than 100.4 F Based on patient request - if ordered for moderate or severe pain, provider allows for administration of a medication prescribed for a lower pain scale. Do not exceed 4 grams of acetaminophen in a 24 hr period. Max dose of 2gm for AST/ALT greater than 120 units/L. If given for pain, use the following pain scale: Mild Pain = Pain Score of 1-3, CPOT 1-2 Moderate Pain = Pain Score of 4-6, CPOT 3-4 Severe Pain = Pain Score of 7-10, CPOT 5-8 acetaminophen (TYLENOL) tablet 650 mg(Linked Group 2) 650 mg, Oral, Every 4 Hours PRN, Mild Pain, Starting on Stefanie 03/03/25 at 2021, If given for fever, use fever parameter: fever greater than 100.4 F Based on patient request - if ordered for moderate or severe pain, provider allows for administration of a medication prescribed for a lower pain scale. Do not exceed 4 grams of acetaminophen in a 24 hr period. Max dose of 2gm for AST/ALT greater than 120 units/L. If given for pain, use the following pain scale: Mild Pain = Pain Score of 1-3, CPOT 1-2 Moderate Pain = Pain Score of 4-6, CPOT 3-4 Severe Pain = Pain Score of 7-10, CPOT 5-8 acetaminophen (TYLENOL) tablet 650 mg(Linked Group 3) 650 mg, Oral, Every 4 Hours PRN, Mild Pain, Starting on Stefanie 03/03/25 at 2023, If given for fever, use fever parameter: fever greater than 100.4 F Based on patient request - if ordered for moderate or severe pain, provider allows for administration of a medication prescribed for a lower pain scale. Do not exceed 4 grams of acetaminophen in a 24 hr period. Max dose of 2gm for AST/ALT greater than 120 units/L. If given for pain, use the following pain scale: Mild Pain = Pain Score of 1-3, CPOT 1-2 Moderate Pain = Pain Score of 4-6, CPOT 3-4 Severe Pain = Pain Score of 7-10, CPOT 5-8 bisacodyl (DULCOLAX) EC tablet 5 mg(Linked Group 4) 5 mg, Oral, Daily PRN, Constipation, Use if polyethylene glycol is ineffective, Starting on Stefanie 03/03/25 at 2021, Use if no bowel movement after 12 hours. Swallow whole. Do not crush, split, or chew tablet. bisacodyl (DULCOLAX) suppository 10 mg(Linked Group 4) 10 mg, Rectal, Daily PRN, Constipation, Use if bisacodyl oral is ineffective, Starting on Stefanie 03/03/25 at 2021, Use if no bowel movement after 12 hours. Hold for diarrhea Calcium Replacement - Follow Nurse / BPA Driven Protocol Open Order & Select S Electrolyte Replacement Protocol Algorithm to View Details dexAMETHasone (DECADRON) injection 4 mg 4 mg, Intravenous, Every 6 Hours PRN, Nausea, Vomiting, Starting on Stefanie 03/03/25 at 2037, For IV administration. May be pushed over a minimum of 1 minute. 0540 (Given - Provid er: Isaias Marina RN) LORazepam (ATIVAN) tablet 1 mg 1 mg, Oral, Every 8 Hours PRN, Anxiety, Agitation, Starting on Stefanie 03/03/25 at 2023, For 5 days, ([facility]) Caution: Look alike/sound alike drug alert 2204 (Given - Provider: Isaias Marina RN) 0913 (Given - Provider: Amelia Griffin RN) Magnesium Standard Dose Replacement - Follow Nurse / BPA Driven Protocol Open Order & Select S Electrolyte Replacement Protocol Algorithm to View Details nitroglycerin (NITROSTAT) SL tablet 0.4 mg 0.4 mg, Sublingual, Every 5 Minutes PRN, Chest Pain, Starting on Stefanie 03/03/25 at 1953, If Pain Unrelieved After 3 Doses Notify MD May administer up to 3 doses per episode. Hold if SBP less than 100. ondansetron (ZOFRAN) injection 4 mg(Linked Group 5) 4 mg, Intravenous, Every 6 Hours PRN, Nausea, Vomiting, Starting on Stefanie 03/03/25 at 2024, If BOTH ondansetron (ZOFRAN) and promethazine (PHENERGAN) are ordered use ondansetron first and THEN promethazine IF ondansetron is ineffective., On hold since Stefanie 03/03/2025 at 2034 until manually unheld 2034 (Held by provider - Provider: Mustapha Canales, DO - Reason: Other (Comment Required) - Comment: Elevated QT) 1852 (Unheld by provider - Provider: Automatic Discharge Provider) ondansetron ODT (ZOFRAN-ODT) disintegrating tablet 4 mg(Linked Group 5) 4 mg, Oral, Every 6 Hours PRN, Nausea, Vomiting, Starting on Stefanie 03/03/25 at 2024, If BOTH ondansetron (ZOFRAN) and promethazine (PHENERGAN) are ordered use ondansetron first and THEN promethazine IF ondansetron is ineffective. Place on tongue and allow to dissolve., On hold since Stefanie 03/03/2025 at 2034 until manually unheld 2034 (Held by provider - Provider: Mustapha Canales DO - Reason: Other (Comment Required) - Comment: Elevated QT) 1852 (Unheld by provider - Provider: Automatic Discharge Provider) Phosphorus Replacement - Follow Nurse / BPA Driven Protocol Open Order & Select [facility] Electrolyte Replacement Protocol Algorithm to View Details polyethylene glycol (MIRALAX) packet 17 g(Linked Group 4) 17 g, Oral, Daily PRN, Constipation, Use if senna-docusate is ineffective, Starting on Stefanie 03/03/25 at 2021, Use if no bowel movement after 12 hours. Mix in 6-8 ounces of water. Use 4-8 ounces of water, tea, or juice for each 17 gram dose. Potassium Replacement - Follow Nurse / BPA Driven Protocol Open Order & Select [facility] Electrolyte Replacement Protocol Algorithm to View Details sennosides-docusate (PERICOLACE) 8.6-50 MG per tablet 2 tablet(Linked Group 4) 2 tablet, Oral, 2 Times Daily PRN, Constipation, Starting on Stefanie 03/03/25 at 2021, Start bowel management regimen if patient has not had a bowel movement after 12 hours. sodium chloride 0.9 % flush 10 mL(Linked Group 6) 10 mL, Intravenous, As Needed, Line Care, Starting on Stefanie 03/03/25 at 1427 sodium chloride 0.9 % flush 10 mL 10 mL, Intravenous, As Needed, Line Care, Starting on Stefanie 03/03/25 at 2021 sodium chloride 0.9 % infusion 40 mL 40 mL, Intravenous, As Needed, Line Care, Starting on Stefanie 03/03/25 at 2021, Following administration of an IV intermittent medication, flush line with 40mL NS at 100mL/hr. Linked Groups Order Group 1: potassium chloride 10 mEq in 100 mL IVPB (COMPLETED)Jump to med 10 mEq, Intravenous, at 100 mL/hr, Administer over 60 Minutes, Once, On Stefanie 03/03/25 at 1839, For 1 dose, Dose 1 of 6 OUTPATIENT/NON-MONITORED UNITS: Potassium Chloride standard bolus infusion rate is a maximum of 10 mEq/hr on unmonitored patients MONITORED UNITS: Potassium Chloride standard bolus infusion rate is a maximum of 20 mEq/hr on ECG monitored patients ONLY And potassium chloride 10 mEq in 100 mL IVPB (COMPLETED)Jump to med 10 mEq, Intravenous, at 100 mL/hr, Administer over 60 Minutes, Once, On Stefanie 03/03/25 at 1939, For 1 dose, Dose 2 of 6 OUTPATIENT/NON-MONITORED UNITS: Potassium Chloride standard bolus infusion rate is a maximum of 10 mEq/hr on unmonitored patients MONITORED UNITS: Potassium Chloride standard bolus infusion rate is a maximum of 20 mEq/hr on ECG monitored patients ONLY And potassium chloride 10 mEq in 100 mL IVPB (COMPLETED)Jump to med 10 mEq, Intravenous, at 100 mL/hr, Administer over 60 Minutes, Once, On Stefanie 03/03/25 at 2039, For 1 dose, Dose 3 of 6 OUTPATIENT/NON-MONITORED UNITS: Potassium Chloride standard bolus infusion rate is a maximum of 10 mEq/hr on unmonitored patients MONITORED UNITS: Potassium Chloride standard bolus infusion rate is a maximum of 20 mEq/hr on ECG monitored patients ONLY And potassium chloride 10 mEq in 100 mL IVPB (COMPLETED)Jump to med 10 mEq, Intravenous, at 100 mL/hr, Administer over 60 Minutes, Once, On Stefanie 03/03/25 at 2139, For 1 dose, Dose 4 of 6 OUTPATIENT/NON-MONITORED UNITS: Potassium Chloride standard bolus infusion rate is a maximum of 10 mEq/hr on unmonitored patients MONITORED UNITS: Potassium Chloride standard bolus infusion rate is a maximum of 20 mEq/hr on ECG monitored patients ONLY And potassium chloride 10 mEq in 100 mL IVPB (COMPLETED)Jump to med 10 mEq, Intravenous, at 100 mL/hr, Administer over 60 Minutes, Once, On Stefanie 03/03/25 at 2239, For 1 dose, Dose 5 of 6 OUTPATIENT/NON-MONITORED UNITS: Potassium Chloride standard bolus infusion rate is a maximum of 10 mEq/hr on unmonitored patients MONITORED UNITS: Potassium Chloride standard bolus infusion rate is a maximum of 20 mEq/hr on ECG monitored patients ONLY And potassium chloride 10 mEq in 100 mL IVPB (COMPLETED)Jump to med 10 mEq, Intravenous, at 100 mL/hr, Administer over 60 Minutes, Once, On Stefanie 03/03/25 at 2339, For 1 dose, Dose 6 of 6 OUTPATIENT/NON-MONITORED UNITS: Potassium Chloride standard bolus infusion rate is a maximum of 10 mEq/hr on unmonitored patients MONITORED UNITS: Potassium Chloride standard bolus infusion rate is a maximum of 20 mEq/hr on ECG monitored patients ONLY And Potassium (CANCELED) As Needed, Starting on Stefanie 03/03/25 at 1823, Until Specified, For 1 occurrence, Release/collect/run 4 hours after completion of last potassium dose., New collection, Release to patient: Routine Release, Specimen Types - Blood; Group 2: acetaminophen (TYLENOL) tablet 650 mgJump to med 650 mg, Oral, Every 4 Hours PRN, Mild Pain, Starting on Stefanie 03/03/25 at 2021, If given for fever, use fever parameter: fever greater than 100.4 F Based on patient request - if ordered for moderate or severe pain, provider allows for administration of a medication prescribed for a lower pain scale. Do not exceed 4 grams of acetaminophen in a 24 hr period. Max dose of 2gm for AST/ALT greater than 120 units/L. If given for pain, use the following pain scale: Mild Pain = Pain Score of 1-3, CPOT 1-2 Moderate Pain = Pain Score of 4-6, CPOT 3-4 Severe Pain = Pain Score of 7-10, CPOT 5-8 Or acetaminophen (TYLENOL) 160 MG/5ML oral solution 650 mgJump to med 650 mg, Oral, Every 4 Hours PRN, Mild Pain, Starting on Tsefanie 03/03/25 at 2021, If given for fever, use fever parameter: fever greater than 100.4 F Based on patient request - if ordered for moderate or severe pain, provider allows for administration of a medication prescribed for a lower pain scale. Do not exceed 4 grams of acetaminophen in a 24 hr period. Max dose of 2gm for AST/ALT greater than 120 units/L. If given for pain, use the following pain scale: Mild Pain = Pain Score of 1-3, CPOT 1-2 Moderate Pain = Pain Score of 4-6, CPOT 3-4 Severe Pain = Pain Score of 7-10, CPOT 5-8 Or acetaminophen (TYLENOL) suppository 650 mgJump to med 650 mg, Rectal, Every 4 Hours PRN, Mild Pain, Starting on Stefanie 03/03/25 at 2021, If given for fever, use fever parameter: fever greater than 100.4 F Based on patient request - if ordered for moderate or severe pain, provider allows for administration of a medication prescribed for a lower pain scale. Do not exceed 4 grams of acetaminophen in a 24 hr period. Max dose of 2gm for AST/ALT greater than 120 units/L. If given for pain, use the following pain scale: Mild Pain = Pain Score of 1-3, CPOT 1-2 Moderate Pain = Pain Score of 4-6, CPOT 3-4 Severe Pain = Pain Score of 7-10, CPOT 5-8 Group 3: acetaminophen (TYLENOL) tablet 650 mgJump to med 650 mg, Oral, Every 4 Hours PRN, Mild Pain, Starting on Stefanie 03/03/25 at 2023, If given for fever, use fever parameter: fever greater than 100.4 F Based on patient request - if ordered for moderate or severe pain, provider allows for administration of a medication prescribed for a lower pain scale. Do not exceed 4 grams of acetaminophen in a 24 hr period. Max dose of 2gm for AST/ALT greater than 120 units/L. If given for pain, use the following pain scale: Mild Pain = Pain Score of 1-3, CPOT 1-2 Moderate Pain = Pain Score of 4-6, CPOT 3-4 Severe Pain = Pain Score of 7-10, CPOT 5-8 Or acetaminophen (TYLENOL) 160 MG/5ML oral solution 650 mgJump to med 650 mg, Oral, Every 4 Hours PRN, Mild Pain, Starting on Stefanie 03/03/25 at 2023, If given for fever, use fever parameter: fever greater than 100.4 F Based on patient request - if ordered for moderate or severe pain, provider allows for administration of a medication prescribed for a lower pain scale. Do not exceed 4 grams of acetaminophen in a 24 hr period. Max dose of 2gm for AST/ALT greater than 120 units/L. If given for pain, use the following pain scale: Mild Pain = Pain Score of 1-3, CPOT 1-2 Moderate Pain = Pain Score of 4-6, CPOT 3-4 Severe Pain = Pain Score of 7-10, CPOT 5-8 Or acetaminophen (TYLENOL) suppository 650 mgJump to med 650 mg, Rectal, Every 4 Hours PRN, Mild Pain, Starting on Stefanie 03/03/25 at 2023, If given for fever, use fever parameter: fever greater than 100.4 F Based on patient request - if ordered for moderate or severe pain, provider allows for administration of a medication prescribed for a lower pain scale. Do not exceed 4 grams of acetaminophen in a 24 hr period. Max dose of 2gm for AST/ALT greater than 120 units/L. If given for pain, use the following pain scale: Mild Pain = Pain Score of 1-3, CPOT 1-2 Moderate Pain = Pain Score of 4-6, CPOT 3-4 Severe Pain = Pain Score of 7-10, CPOT 5-8 Group 4: sennosides-docusate (PERICOLACE) 8.6-50 MG per tablet 2 tabletJump to med 2 tablet, Oral, 2 Times Daily PRN, Constipation, Starting on Fri03/03/25 at 2021, Start bowel management regimen if patient has not had a bowel movement after 12 hours. And polyethylene glycol (MIRALAX) packet 17 gJump to med 17 g, Oral, Daily PRN, Constipation, Use if senna-docusate is ineffective, Starting on Fri03/03/25 at 2021, Use if no bowel movement after 12 hours. Mix in 6-8 ounces of water. Use 4-8 ounces of water, tea, or juice for each 17 gram dose. And bisacodyl (DULCOLAX) EC tablet 5 mgJump to med 5 mg, Oral, Daily PRN, Constipation, Use if polyethylene glycol is ineffective, Starting on Fri03/03/25 at 2021, Use if no bowel movement after 12 hours. Swallow whole. Do not crush, split, or chew tablet. And bisacodyl (DULCOLAX) suppository 10 mgJump to med 10 mg, Rectal, Daily PRN, Constipation, Use if bisacodyl oral is ineffective, Starting on Fri03/03/25 at 2021, Use if no bowel movement after 12 hours. Hold for diarrhea Group 5: ondansetron ODT (ZOFRAN-ODT) disintegrating tablet 4 mgJump to med 4 mg, Oral, Every 6 Hours PRN, Nausea, Vomiting, Starting on Fri03/03/25 at 2024, If BOTH ondansetron (ZOFRAN) and promethazine (PHENERGAN) are ordered use ondansetron first and THEN promethazine IF ondansetron is ineffective. Place on tongue and allow to dissolve., On hold since Fri03/03/2025 at 2034 until manually unheld Or ondansetron (ZOFRAN) injection 4 mgJump to med 4 mg, Intravenous, Every 6 Hours PRN, Nausea, Vomiting, Starting on Stefanie 03/03/25 at 2024, If BOTH ondansetron (ZOFRAN) and promethazine (PHENERGAN) are ordered use ondansetron first and THEN promethazine IF ondansetron is ineffective., On hold since Stefanie 03/03/2025 at 2034 until manually unheld Group 6: Insert Peripheral IV (CANCELED) STAT, Once, On Stefanie 03/03/25 at 1428, For 1 occurrence And sodium chloride 0.9 % flush 10 mLJump to med 10 mL, Intravenous, As Needed, Line Care, Starting on Stefanie 03/03/25 at 1427 documented in this encounter Care Teams [employer] Relationship Specialty Start Date End Date Becca Sin APRN [address] [place] [id number] PCP - General Nurse Practitioner 10/01/24 documented as of this encounter
--- OUTSIDE RECORDS SUMMARY | 2025-03-22 10:30 | XMS_ITS | Encounter Summary ---
Author Organization [facility] Address [address] [place] [address] Care Team Providers Care Firmware Software Verification Engineer Name Role Phone Lenny Duncan MD Primary Care Provider [phone] Reason for Visit * Reason Comments Follow-up Encounter Details Date Type Department Care Team ([facility] Contact Info) Description 03/22/2025 10:30 AM EST [facility] [address] [place] [id number] Stephanie Keys PA [address] [place] [address], [address] [place] [address] Gastroparesis (Primary Dx) Social History [...] encounter Progress Notes * GENEVIEVE Crook - 03/22/2025 10:30 AM EST Images from the original note were not included. [facility] CLINIC NOTE Patient: Triny Velázquez Age: 19 y.o. Sex: female : 2005 Visit Date: 03/22/2025 Visit Type: Telemedicine: time spent 15 minutes Triny Velázquez was located at [place] and I was located at [place] for this telemedicine/telephone encounter. We utilized [employer] integrated with [employer] for the encounter and Triny Velázquez and I were able to hear [and see] each other simultaneously in real time. I introduced myself and verified Triny Velázquez identity. I explained how the telemedicine visit will occur. I advised Triny Velázquez that technology-related delays and breaches of privacy are potential risks associated with conducting the encounter via telemedicine. I also advised Triny Velázquez that at any point she may [...] the use of telemedicine in her care. Chief Complaint Patient presents with Follow-up History of Present Illness HPI: Pt is 19 YO F with idiopathic gastroparesis s/p gastric stimulator last seen in office February2025 and presents today for follow up. Today patient states that she has been feeling better over the past several days; she notes she has been eating well and keeping food down. She notes that she has started on a new constipation medication from her local GI which has been helpful and she is having 1-2 bowel movements per day. She notes that she did have a repeat CT scan which did not show colitis and she does not feel that she needs a colonoscopy at this time. She has been trying to reduce her marijuana use and feels this has been helpful. She is trying to get her anxiety better controlled and works with a psychiatrist as well as a therapist. Symptom Scores (Patient-Reported): 03/22/2025 8:41 AM 02/28/2025 11:50 AM 11/22/2024 3:01 PM Upper Symptoms Vomiting 2 4 1 Nausea 2 4 1 Anorexia/Early Satiety 3 3 1 Bloating/Distension 3 4 0 Abdominal Pain 2 4 0 Total UGI Score 12 19 3 Patient-reported 03/22/2025 8:41 AM 02/28/2025 11:50 AM 11/22/2024 3:01 PM Middle GI Symptoms GERD 2 4 1 Dysphagia 0 0 0 Patient-reported 03/22/2025 8:41 AM 02/28/2025 11:50 AM 11/22/2024 3:01 PM Lower GI Symptoms Diarrhea 0 2 0 Constipation 2 2 0 Frequent Urination 2 1 0 Infrequent Urination 0 0 0 Total LGI Score 4 5 0 Patient-reported Fill-Out (then right click table and refresh) [...] Anxiety state 2017 Asthma 2022 Depressive disorder 2017 Esophageal reflux December 2023 Essential hypertension August [...] Negative. Gastrointestinal: As noted in HPI. Vitals There were no vitals filed for this visit. Physical Exam Physical Exam Constitutional: Appearance: Normal appearance. HENT: Head: Normocephalic and atraumatic. Right Ear: External ear normal. Left Ear: External ear normal. Nose: Nose normal. Eyes: Extraocular Movements: Extraocular movements intact. Conjunctiva/sclera: Conjunctivae normal. Pulmonary: Effort: Pulmonary effort is normal. Musculoskeletal: Cervical back: Normal range of motion. Neurological: Mental Status: She is alert and oriented to person, place, and time. Psychiatric: Mood and Affect: Mood normal. Behavior: Behavior normal. Thought Content: Thought content normal. Judgment: Judgment normal. Motility Procedures Data Lab Results Component Value Date WBC 8.5 12/27/2024 HGB 13.2 12/27/2024 HCT 40.3 12/27/2024 PLT 287 12/27/2024 NA [...] Score 11 Impression 1. Gastroparesis Plan Gastroparesis -s/p gastric stimulator; most recent adjustment made February 2025 -continue diet as tolerated - discussed focusing on symptom control first, as that improves beginning to advance diet -continue to limit marijuana usage -notes that she feels improved with improvement in bowel movements as well -does not feel she needs colonoscopy at this time -continue follow up with local team for anxiety as this is a trigger for her symptoms F/u 3 mo in office No orders of the defined types were placed in this encounter. Follow up in about 3 months (around 06/22/2025). Complexity/Risk Attestation: Data Complexity: LIMITED - I ordered or reviewed >=2 of the following: unique lab(s)/test(s), unique source external note(s) OR obtained history from an independent historian Diagnosis Complexity: MODERATE - Two or more stable chronic illnesses Encounter Risk: MODERATE - Prescription drug management Physician Sorting And Folding Supervisor Supervision Attestation: The Supervising Physician Pina Scott was available to me by telecommunication.. No new problems were diagnosed during the visit, any/all problem(s) managed today have been managed previously by a physician in this practice. GENEVIEVE Crook [facility] 03/22/2025 [1] Past Surgical History: Procedure Laterality Date ESOPHAGOGASTRODUODENOSCOPY September 2024 [2] No Known Allergies [3] Social History Tobacco Use Smoking status: Never Passive exposure: Never Smokeless tobacco: Current Vaping Use Vaping status: Former Substances: Nicotine, THC Substance Use Topics Alcohol use: Not Currently Drug use: Yes Types: Marijuana [4] Family History Problem Relation Name Age of Onset Ulcers Maternal Grandmother Anamaria Meyer Arthritis Maternal Grandmother Anamaria Meyer Diabetes Maternal Grandmother Anamaria Meyer Heart disease Maternal Grandmother Anamaria Meyer Hyperlipidemia Maternal Grandmother Anamaria Meyer Hypertension Maternal Grandmother Anamaria Meyer Miscarriages / Stillbirths Maternal Grandmother Anamaria Meyer Colon polyps Maternal Grandfather Asthma Mother Genevieve Velázquez Cancer Mother Genevieve Velázquez Diabetes Mother Genevieve Velázquez Hyperlipidemia Mother Genevieve Velázquez Hypertension Mother Genevieve Velázquez Diabetes Father Ernesto Velázquez Hyperlipidemia Father Ernesto Velázquez Hypertension Father Ernesto [...] Primary documented in this encounter Care Teams Firmware Software Verification Engineer Relationship Specialty Start Date End Date Lenny Duncan MD [address] [place] [id number] PCP - General Internal Medicine 09/10/24 documented as of this encounter
--- OUTSIDE RECORDS SUMMARY | 2025-04-26 11:00 | XMS_ITS | Encounter Summary ---
Author Organization [facility] Address [address] [place] [address] Care Team Providers Care Window Clerk Name Role Phone Lenny Duncan MD Primary Care Provider [phone] Encounter Details Date Type Department Care Team ([facility] st Contact Info) Description 04/26/2025 11:00 AM EST [facility] [address] [place] [address] [phone] Pina Scott MD [address] [place] [address], [address] [place] [address] Gastroparesis (Primary Dx) Social History [...] as of this encounter Progress Notes * Jaymie Asher MA - 04/26/2025 11:00 AM EST [facility] CLINIC NOTE Patient: Triny Velázquez Age: 19 y.o. Sex: female : 2005 Visit Date: 04/26/2025 Visit Type: Stim Adjustment Procedure: MOTILITY PROCEDURES: Procedure: Stimulator Adjustment (changes made) Initial Settings: Stimulator On/Off: On Voltage (V): 6 Power (W): 330 Rate: 14 Cycle On (sec): 2 Cycle Off (sec): 3 End Settings: Stimulator On/Off: On Voltage (V): 7.5 Power (W): 330 Rate: 20 Cycle On (sec): 2 Cycle Off (sec): 3 Battery Status: Good Impedance (ohm): 538 Additional Comments: Patient came in for an adjustment due to vomiting and constipation Jaymie Asher MA [facility] 04/26/2025 Cosigned by Pina Scott MD at 04/26/2025 12:24 PM EST Associated attestation - Pina Scott MD - 04/26/2025 12:24 PM EST Pt in office for stimulator interrogation and adjustment - completed as documented. Pina Scott MD [facility] 04/26/2025 documented in this encounter Plan of Treatment Not on file documented as of this encounter Visit Diagnoses Diagnosis Gastroparesis- Primary documented in this encounter Care Teams Window Clerk Relationship Specialty Start Date End Date Lenny Duncan MD [facility] [place] [address] [address] [place] [phone] PCP - General Internal Medicine 09/10/24 documented as of this encounter
--- OUTSIDE RECORDS SUMMARY | 2025-04-27 20:44 | XMS_ITS | Encounter Summary ---
Author Organization [facility] Address [address] [place] [address] Care Team Providers Care Top Dyeing Machine Tender Name Role Phone Lenny Duncan MD Primary Care Provider Encounter Details Date Type Department Care Team (Latest Contact Info) Description 02/28/2025 Travel Social History Tobacco Use Types Packs/Day [...] on filedocumented in this encounter Care Teams Top Dyeing Machine Tender Relationship Specialty Start Date End Date Lenny Duncan MD [address] [facility] [address] [place] [phone] PCP - General Internal Medicine 09/10/24 documented as of this encounter
--- OUTSIDE RECORDS SUMMARY | 2025-04-27 20:44 | XMS_ITS | Encounter Summary ---
Author Organization [facility] Address [address] [place] [address] Care Team Providers Care Real Estate Listing Consultant Name Role Phone Lenny Duncan MD Primary Care Provider [phone] Encounter Details Date Type Department Care Team (Latest Contact Info) Description 03/22/2025 Travel Social History Tobacco Use Types Packs/Day [...] on filedocumented in this encounter Care Teams Real Estate Listing Consultant Relationship Specialty Start Date End Date Lenny Duncan MD [address] [facility] [address] [place] [phone] PCP - General Internal Medicine 09/10/24 documented as of this encounter
--- OUTSIDE RECORDS SUMMARY | 2025-04-27 20:44 | XMS_ITS | Encounter Summary ---
Author Organization [facility] Address [address] [place] [address] Care Team Providers Care Warp Preparer Name Role Phone Merrick Becca MARYANN Primary Care Provider [phone] Encounter Details Date Type Department Care Team (Latest Contact Info) Description 03/03/2025 Travel Social History Tobacco Use Types Packs/Day Years Used Date Smoking Tobacco: Never Smokeless Tobacco: Never Alcohol Use Standard Drinks/Week Comments Yes 0 (1 standard drink = 0.6 oz pur e alcohol) [facility] Utilities Answer Date Recorded In the past 12 months has [employer], gas, oil, or water [employer] threatened to shut off services in your [...] GED or equivalent No 10/01/2024 Preferred Language Guyanese 10/01/2024 Comments No Sex and Gender Information Value Date Recorded Sex Assigned at Not on file Legal Sex Female 1:04 PM EDT Gender Identity Not on file Sexual Orientation Not on file documented as of this encounter Functional Status * Calculated C-SSRS Risk Score (Lifetime/Recent) Answer Date of Assessment Author No Risk Indicated 03/03/2025 5:54 PM Luisa Monreal RN * [place] Suicide Severity Rating Scale (Screener/Recent Self-Report) Question Answer Date of Assessment Author 1. Wish to be (Past 1 Month) No 025 5:54 PM Luisa Monreal, CHIP 2. Non-Specific Active Suici apolonia Thoughts (Past 1 Month) No 03/03/2025 5:54 PM EDT Mago Marshall RN 6. Suicidal Behavior (Lifetime) No 5:54 PM EDT Luisa Marshall, RN documented as of this encounter Plan of Treatment Not on file documented as of this encounter Visit Diagnoses Not on filedocumented in this encounter Care Teams Warp Preparer Relationship Specialty Start Date End Date Becca Sin APRN [address] [place] [address] PCP - General Nurse Practitioner 10/01/24 documented as of this encounter
--- OUTSIDE RECORDS SUMMARY | 2025-04-27 20:44 | XMS_ITS | Clinical Summary ---
Author Organization [facility] Address [address] [place] [address] Care Team Providers Care Press Tender Long Goods Name Role Phone Becca Sin APRN Primary Care Provider [phone] Allergies No known active allergies Medications Ipratropium-Alb uterol (ALBUTEROL-IPRA TROPIUM IN) Inhale 90 mcg Every 6 (Six) Hours As Needed. Active Calcium Carbonate Antacid (TUMS PO) Take 200 mg by mouth Daily As Needed. Active Cariprazine HCl (VRAYLAR) 1.5 MG capsule capsule Take 1 capsule by mouth Every Night. Active haloperidol (HALDOL) 5 MG tablet Take 1 tablet by mouth 3 (Three) Times a Day As Needed (gastroparesis flare up with zofran). Active levocetirizine (XYZAL) 5 MG tablet Take 1 tablet by mouth Every Evening. Active linaclotide (LINZESS) 145 MCG capsule capsule Take 1 capsule by mouth Daily. Active LORazepam (ATIVAN) 1 MG tablet Take 1 tablet by mouth 3 (Three) Times a Day As Needed for Anxiety (gastroparesis flare up with phenergan). Active melatonin 5 MG tablet tablet Take 1 tablet by mouth At Night As Needed. Active ondansetron (ZOFRAN) 4 MG tablet Take 1 tablet by mouth Every 6 (Six) Hours As Needed for Nausea or Vomiting. Active promethazine (PHENERGAN) 50 MG tablet Take 1 tablet by mouth Every 6 (Six) Hours As Needed for Nausea or Vomiting. Active traZODone (DESYREL) 50 MG tablet Take 0.5 tablets by mouth Every Night. Active escitalopram (LEXAPRO) 20 MG tablet Take 1 tablet by mouth Daily. 30 tablet Active Additional Information Patient taking differently:20 mg OralNightly, Reported on 03/03/2025 pantoprazole (PROTONIX) 40 MG EC tablet Take 1 tablet by mouth 2 (Two) Times a Day. Active metoclopramide (REGLAN) 10 MG tablet Take 1 tablet by mouth 2 (Two) Times a Day. Active Active Problems Problem Noted Date Diagnosed Date Intractable nausea and vomiting 03/03/2025 Sleep apnea 11/23/2024 Premature atrial complexes 11/23/2024 N&V (nausea and vomiting) 10/01/2024 Seasonal allergies 10/01/2024 Anxiety associated with depression 10/01/2024 Gastroparesis 10/01/2024 Cannabis use disorder 10/01/2024 Abdominal pain 10/01/2024 Hypokalemia 10/01/2024 Obesity, Class III, BMI 40-49.9 (morbid obesity) 10/01/2024 Encounters Date Type Department Care Team Description 03/03/2025 4:16 PM EDT - 03/04/2025 4:52 PM EDT Hospital Encounter [address] [id number] Gomez Deras MD Varney, M Scott, DO Sloan, Walker E, MD Intractable nausea and vomiting (Primary Dx); Gastroparesis; Hypokalemia; Dehydration; Cannabis use disorder Discharge Disposition: Home or Self Care 03/03/2025 Travel from Last 3 Months Immunizations Immunization Administration Dates Next Due DTaP 12/26/2009, 7,05/20/2006,02/24,2005 Flu Vaccine Quad PF 6-35MO 03/08/2019 Fluzone (or Fluarix & Flulav al for VFC) >6mos 07/07/2021,03/05/2018 Hep A, 2 Dose 06/30/2018,12/30/2017 Hep B, Adolescent or Pediatric 05/20/2006,2005,2005 HiB 09/18/2007,2005 Hpv9 06/30/2018,12/30/2017 IPV 09/26/2010, 7,02/24/2006,12/23 MMR 12/26/2009,09/25/2006 Meningococcal Conjugate 12/30/2017 Pneumococcal Conjugate 13-Va lent (PCV13) 09/18/2007,2005 Tdap 12/30/2017 Varicella 12/26/2009,09/25/2006 Social History Tobacco Use Types Packs/Day Years Used Date Smoking Tobacco: Never Smokeless Tobacco: Never Tobacco Cessation:Counseling Given: No Alcohol Use Standard Drinks/Week Comments Yes 0 (1 standard drink = 0.6 oz pur e alcohol) [facility] Utilities Answer Date Recorded In the past 12 months has th e electric, gas, oil, or water [employer] threatened to shut off services in your [...] GED or equivalent No 10/01/2024 Preferred Language Russian 10/01/2024 Comments No Sex and Gender Information [...] Mass Index 54.97 03/03/2025 2:24 PM EDT Plan of Treatment Health Maintenance Due Date Last Done Comments MENINGOCOCCAL B VACCINE (1 o f 2 - Standard) 2021 ANNUAL PHYSICAL 11/19/2024 HEPATITIS C SCREENING 11/19/2024 INFLUENZA VACCINE 12/10/2024 07/07/2021, 03/08/2019, 03/05/2018 TDAP/TD VACCINES (2 - Td or [...] 12-LEAD STAT 03/03/2025 5:32 PM EDT CBC AND DIFFERENTIAL STAT 03/03/2025 5:05 PM EDT CBC WITH AUTO DIFFERENTIAL STAT 03/03/2025 5:05 PM EDT PHOSPHORUS STAT 03/03/2025 5:05 PM EDT MAGNESIUM STAT 03/03/2025 5:05 PM EDT LIPASE STAT 03/03/2025 5:05 PM EDT COMPREHENSIVE METABOLIC PANEL STAT 03/03/2025 5:05 PM EDT POCT PEFORM URINE STAT 03/03/2025 3:12 PM EDT FENTANYL, URINE Routine 03/03/2025 3:12 PM EDT URINE DRUG SCREEN Add-On 03/03/2025 3:1 2 PM EDT URINALYSIS, MICROSCOPIC ONLY STAT 03/03/2025 3:12 PM EDT URINALYSIS W/ MICROSCOPIC IF INDICATED (NO CULTURE) STAT 03/03/2025 3:12 PM EDT from Last 3 Months Results * (ABNORMAL) Magnesium (03/04/2025 11:24 AM EDT) Only the most recent of2 resultswithin the time period is included. Magnesium 2.3(H) 1.7 - 2.2 mg/dL 03/04/2025 11:58 AM EDT [facility] Blood Venipuncture / Unknown 03/04/2025 11:24 AM EDT 03/04/2025 11:29 AM EDT [facility] Oscar Canales DO LAB BLOOD ORDERABLES Final Res ult [facility]
[address] [place] [address], [place] [phone] * (ABNORMAL) Comprehensive Metabolic Panel (03/04/2025 11:24 AM EDT) Only the most recent of2 resultswithin the time period is included. Glucose 98 65 - 99 mg/dL 03/04/2025 11:58 AM EDT [facility] BUN 6.1 6.0 - 20.0 mg/dL 03/04/2025 11:58 AM EDT [facility] Creatinine 0.63 0.57 - 1.00 mg/dL 03/04/2025 11:58 AM EDT [facility] Sodium 138 136 - 145 mmol/L 03/04/2025 11:58 AM EDT [facility] Potassium 3.1(L) 3.5 - 5.2 mmol/L 03/04/2025 11:58 AM EDT [facility] Chloride 95(L) 98 - 107 mmol/L 03/04/2025 11:58 AM [facility] CO2 26.7 22.0 - 29.0 mmol/L 03/04/2025 11:58 AM [facility] Calcium 9.5 8.6 - 10.5 mg/dL 03/04/2025 11:58 AM [facility] Total Protein 7.4 6.0 - 8.5 g/dL 03/04/2025 11:58 AM [facility] Albumin 4.4 3.5 - 5.2 g/dL 03/04/2025 11:58 AM [facility] ALT (SGPT) 15 1 - 33 U/L 03/04/2025 11:58 AM [facility] AST (SGOT) 21 1 - 32 U/L 03/04/2025 11:58 AM [facility] Alkaline Phosphatase 109 39 - 117 U/L 03/04/2025 11:58 AM [facility] Total Bilirubin 0.8 0.0 - 1.2 mg/dL 03/04/2025 11:58 AM [facility] Globulin 3.0 gm/dL 03/04/2025 11:58 AM [facility] Comment:Calculated Result A/G Ratio 1.5 g/dL 03/04/2025 11:58 AM [facility] BUN/Creatinine Ratio 9.7 7.0 - 25.0 03/04/2025 11:58 AM [facility] Anion Gap 16.3(H) 5.0 - 15.0 mmol/L 03/04/2025 11:58 AM [facility] eGFR 131.2 >60.0 mL/min/1.7 3 03/04/2025 11:58 AM [facility] Blood Venipuncture / Unknown 03/04/2025 11:24 AM EDT 03/04/2025 11:29 AM [facility] - 03/04/2025 11:58 AM EDT GFR [...] does not include race as a factor Mustapha Canales DO LAB BLOOD ORDERABLES Final Res ult [facility]
[address] [place] [address], * (ABNORMAL) CBC Auto Differential (03/04/2025 11:23 AM EDT) Only the most recent of2 resultswithin the time period is included. WBC 12.80(H) 3.40 - 10.80 10*3/mm3 03/04/2025 11:36 AM EDT [facility] RBC 5.32(H) 3.77 - 5.28 10*6/mm3 03/04/2025 11:36 AM EDT [facility] Hemoglobin 12.4 12.0 - 15.9 g/dL 03/04/2025 11:36 AM EDT [facility] Hematocrit 40.3 34.0 - 46.6 % 03/04/2025 11:36 AM EDT [facility] MCV 75.8(L) 79.0 - 97.0 fL 03/04/2025 11:36 AM EDT [facility] MCH 23.3(L) 26.6 - 33.0 pg 03/04/2025 11:36 AM EDT [facility] MCHC 30.8(L) 31.5 - 35.7 g/dL 03/04/2025 11:36 AM EDT [facility] RDW 15.8(H) 12.3 - 15.4 % 03/04/2025 11:36 AM [facility] RDW-SD 42.5 37.0 - 54.0 fl 03/04/2025 11:36 AM [facility] MPV 8.3 6.0 - 12.0 fL 03/04/2025 11:36 AM [facility] Platelets 277 140 - 450 10*3/mm3 03/04/2025 11:36 AM [facility] Neutrophil % 89.3(H) 42.7 - 76.0 % 03/04/2025 11:36 AM [facility] Lymphocyte % 6.6(L) 19.6 - 45.3 % 03/04/2025 11:36 AM [facility] Monocyte % 2.8(L) 5.0 - 12.0 % 03/04/2025 11:36 AM [facility] Eosinophil % 0.1(L) 0.3 - 6.2 % 03/04/2025 11:36 AM [facility] Basophil % 0.2 0.0 - 1.5 % 03/04/2025 11:36 AM [facility] Immature Grans % 1.0(H) 0.0 - 0.5 % 03/04/2025 11:36 AM [facility] Neutrophils, Absolute 11.42(H) 1.70 - 7.00 10*3/mm3 03/04/2025 11:36 AM [facility] Lymphocytes, Absolute 0.85 0.70 - 3.10 10*3/mm3 03/04/2025 11:36 AM [facility] Monocytes, Absolute 0.36 0.10 - 0.90 10*3/mm3 03/04/2025 11:36 AM [facility] Eosinophils, Absolute 0.01 0.00 - 0.40 10*3/mm3 03/04/2025 11:36 AM [facility] Basophils, Absolute 0.03 0.00 - 0.20 10*3/mm3 03/04/2025 11:36 AM EDT [facility] Immature Grans, Absolute 0.13(H) 0.00 - 0.05 10*3/mm3 03/04/2025 11:36 AM EDT [facility] nRBC 0.0 0.0 - 0.2 /100 WBC 03/04/2025 11:36 AM EDT [facility] Blood Venipuncture / Unknown 03/04/2025 11:23 AM EDT 03/04/2025 11:29 AM EDT us Mustapha Canales DO LAB BLOOD ORDERABLES Final Res ult [facility]
[address] [place] [address], * CT Abdomen Pelvis Without Contrast (03/03/2025 [...] MD 03/03/2025 7:21 PM EDT Workstation ID: [id number] Narrative 03/03/2025 7:[address] ABDOMEN [...] MD 03/03/2025 7:21 PM EDT Workstation ID: [id number] us Gomez Deras MD IMG CT ORDERABLES Final Result * Telemetry Scan (03/03/2025 6:53 PM EDT) [facility] ECG ORDERABLES Final Result * ECG 12 [...] 5:43:19 PM Referred By: ED Confirmed By: GOMEZ DERAS MD Procedure Note Gomez Deras MD - 03/03/2025 Test Reason : [...] 5:43:19 PM Referred By: ED Confirmed By: GOMEZ DERAS MD us Gomez Deras MD ECG ORDERABLES Final Result ECG * Phosphorus (03/03/2025 5:05 PM EDT) Pathologist [facility] Phosphorus 2.7 2.5 - 4.5 mg/dL 03/03/2025 6:00 PM EDT [facility] Blood Venipuncture / Unknown 03/03/2025 5:05 PM EDT 03/03/2025 5:32 PM EDT us Gomez Deras MD LAB BLOOD ORDERABLES Final Resul t Performing Organization Address City/[facility]/ZIP Co de Phone Number [facility]
[address] [place] [address], [place] [phone] * Lipase (03/03/2025 5:05 PM EDT) Pathologist [facility] Lipase 17 13 - 60 U/L 03/03/2025 6:00 PM EDT [facility] Blood Venipuncture / Unknown 03/03/2025 5:05 PM EDT 03/03/2025 5:32 PM EDT us Gomez Deras MD LAB BLOOD ORDERABLES Final Resul t Performing Organization Address [facility] Co de Phone Number [facility]
[address] [place] [address], [place] [phone] * (ABNORMAL) Urinalysis, Microscopic Only - Urine, Clean Catch (03/03/2025 3:12 PM EDT) Pathologist [facility] RBC, UA 0-2 None Seen, 0-2 /HPF 03/03/2025 3:50 PM EDT [facility] WBC, UA 3-5(A) None Seen, 0-2 /HPF 03/03/2025 3:50 PM EDT [facility] Bacteria, UA 2+(A) None Seen /HPF 03/03/2025 3:50 PM EDT [facility] Squamous Epithelial Cells, UA 7-12(A) None Seen, 0-2 /HPF 03/03/2025 3:50 PM EDT [facility] Transitional Epithelial Cells, UA 0-2 0 - 2 /HPF 03/03/2025 3:50 PM EDT [facility] Hyaline Casts, UA 0-2 None Seen /LPF 03/03/2025 3:50 PM EDT [facility] Amorphous Crystals, UA Small/1+ None Seen /HPF 03/03/2025 3:50 PM EDT [facility] Methodology Manual Light Microscopy 03/03/2025 3:50 PM EDT [facility] Urine Urine specimen obtained by clean catch procedure / Unknown Collection / Unknown 03/03/2025 3:12 PM EDT 03/03/2025 3:29 PM EDT Gomez Deras MD URINE ORDERABLES Final Result [facility]
[address] [place] [address], * (ABNORMAL) Urinalysis With Microscopic If Indicated (No Culture) - Urine, Clean Catch (03/03/2025 3:12 PM EDT) Color, UA Yellow Yellow, Straw 03/03/2025 3:50 PM EDT [facility] Appearance, UA Clear Clear 03/03/2025 3:50 PM EDT [facility] pH, UA 5.5 5.0 - 8.0 03/03/2025 3:50 PM EDT [facility] Specific [place] [address], UA 1.017 1.005 - 1.030 03/03/2025 3:50 PM EDT [facility] Glucose, UA Negative Negative 03/03/2025 3:50 PM EDT [facility] Ketones, UA 40 mg/dL (2+)(A) Negative 03/03/2025 3:50 PM EDT [facility] Bilirubin, UA Negative Negative 03/03/2025 3:50 PM EDT [facility] Blood, UA Negative Negative 03/03/2025 3:50 PM EDT [facility] Protein, UA Trace(A) Negative 03/03/2025 3:50 PM EDT [facility] Leuk Esterase, UA Trace(A) Negative 03/03/2025 3:50 PM EDT [facility] Nitrite, UA Negative Negative 03/03/2025 3:50 PM EDT [facility] Urobilinogen, UA 1.0 E.U./dL 0.2 - 1.0 E.U./dL 03/03/2025 3:50 PM EDT [facility] Urine Urine specimen obtained by clean catch procedure / Unknown Collection / Unknown 03/03/2025 3:12 PM EDT 03/03/2025 3:29 PM EDT Gomez Deras MD URINE ORDERABLES Final Result [facility]
[address] [place] [address], * (ABNORMAL) Urine Drug Screen - Urine, Clean Catch (03/03/2025 3:12 PM EDT) THC, Screen, Urine Positive(A) Negative 03/03 9:10 PM EDT [facility] Phencyclidine (PCP), Urine Negative Negative 03/03/2025 9:10 PM EDT [facility] Cocaine Screen, Urine Negative Negative 03/03/2025 9:10 PM EDT [facility] Methamphetamine, Ur Negative Negative 03/03/2025 9:10 PM EDT [facility] Opiate Screen Negative Negative 03/03/2025 9:10 PM EDT [facility] Amphetamine Screen, Urine Negative Negative 03/03/2025 9:10 PM EDT [facility] Benzodiazepine Screen, Urine Positive(A) Negative 03/03/2025 9:10 PM EDT [facility] Tricyclic Antidepressants Screen Negative Negative 03/03/2025 9:10 PM EDT [facility] Methadone Screen, Urine Negative Negative 03/03/2025 9:10 PM EDT [facility] Barbiturates Screen, Urine Negative Negative 03/03/2025 9:10 PM EDT [facility] Oxycodone Screen, Urine Negative Negative 03/03/2025 9:10 PM EDT [facility] Buprenorphine, Screen, Urine Negative Negative 03/03/2025 9:10 PM EDT [facility] Urine Urine specimen obtained by clean catch procedure / Unknown Collection / Unknown 03/03/2025 3:12 PM EDT 03/03/2025 3:29 PM EDT [facility] - 03/03/2025 9:10 PM EDT Cutoff [...] Mustapha Canales DO URINE ORDERABLES Final Result [facility]
[address] [place] [address], * Fentanyl, Urine - Urine, Clean Catch (03/03/2025 3:12 PM EDT) Fentanyl, Urine Negative Negative 03/03/2025 9:50 PM EDT [facility] Urine Urine specimen obtained by clean catch procedure / Unknown Collection / Unknown 03/03/2025 3:12 PM EDT 03/03/2025 3:29 PM EDT Narrative [facility] - 03/03/2025 9:50 PM EDT Negative [...] URINE ORDERABLES Final Result Performing Organization Address City/[facility]/ZIP Co de Phone Number [facility]
[address] [place] [address], [place] [phone] * POC Urine (03/03/2025 3:12 PM EDT) HCG, Urine, QL Negative Negative [facility] Lot Number [id number] [facility] Internal Positive Control Positive Positive, Passed [facility] Internal Negative Control Negative Negative, Passed [facility] Expiration Date [facility] Urine 03/03/2025 3:12 PM EDT Gomez Deras MD POINT OF CARE TEST ORDERABLES Fi nal Result [facility]
[address] [place] [address], [place] [phone] from Last [address] [place] [phone] [facility] [employer] H[facility] Advance Directives * CPR (Attempt to Resuscitate) (Latest Code Status on File) Date Activated Date Inactivated Comments 03/03/2025 8:26 PM 03/04/2025 6:53 PM Question Answer Comments Code Status (Patient has no pulse and is not breathing): CPR (Attempt to Resuscitate) Medical Interventions (Patie nt has pulse or is breathing): Full Support Level Of Support Discussed With: Patient * CPR (Attempt to Resuscitate) Date Activated Date Inactivated Comments 10/01/2024 6:03 PM 10/04/2024 8:46 PM Question Answer Comments Code Status (Patient has no pulse and is not breathing): CPR (Attempt to Resuscitate) Medical Interventions (Patie nt has pulse or is breathing): Full Support Level Of Support Discussed With: Patient Care Teams Press Tender Long Goods Relationship Specialty Start Date End Date Becca Sin APRN [address] [place] [address] [place] [phone] PCP - General Nurse Practitioner 10/01/24
--- OUTSIDE RECORDS SUMMARY | 2025-04-27 20:44 | XMS_ITS | Clinical Summary ---
Author Organization [facility] Address [address] [facility] [address] [place] [address] Care Team Providers Care Proofsheet Corrector Name Role Phone Lenny Duncan MD Primary Care Provider [phone] Allergies No known active allergies Medications escitalopram [...] if needed for nausea or vomiting. Active LORazepam (Ativan) 1 MG tablet Take [...] (six) hours if needed for wheezing. Active metoclopramide (Reglan) 10 MG tablet Take 10 mg by mouth in the morning and 10 mg in the evening. Active omeprazole (PriLOSEC) [address] capsule Take 40 mg by mouth in the morning and 40 mg in the evening. Take before meals. 04/26/2024 Active pantoprazole (ProtoNix) 40 MG EC tablet Take 40 mg by mouth in the morning and 40 mg before bedtime. 12/25/2024 Active Potassium Chloride 20 MEQ/15ML (10%) solution TAKE 15 ML BY MOUTH ONCE DAILY 12/21/2024 Active Active Problems Problem Noted Date Diagnosed Date Abdominal pain 10/01/2024 Cannabis use, unspecified, uncomplicated 025 Gastroparesis 10/01/2024 Hypokalemia 10/01/2024 Mixed anxiety and depressive disorder 10/01/2024 Severe recurrent major depression 08/28/2020 Disruptive mood dysregulation disorder Anxiety 05/19/2018 Encounters Date Type Department Care Team Description 04/26/2025 11:00 AM EST Lab [facility] [address] [address] Pina Scott MD Gastroparesis (Primary Dx) 04/26/2025 Travel 04/20/2025 Telephone [facility] [address] [address] Stephanie Keys PA Stim check 04/14/2025 Telephone [facility] [address] [address] Stephanie Keys PA symptoms 03/22/2025 10:30 AM EST Telemedicine [facility] [address] [address] Stephanie Keys PA Gastroparesis (Primary Dx) 03/22/2025 Travel 03/01/2025 Orders Only [facility] [address] [address] Elvia Martinez MA Colitis, not otherwise specified; Gastroparesis; Generalized rebound abdominal tenderness 02/28/2025 11:30 AM EDT Office Visit [facility] [address] [address] Stephanie Keys PA Colitis, not otherwise specified (Primary Dx); Gastroparesis 02/28/2025 Travel 02/25/2025 Telephone [facility] [address] [address] Stephanie Keys PA general 01/28/2025 2:00 PM EDT Procedure Visit [facility] [address] [address] Pina Scott MD Gastroparesis (Primary Dx) 01/27/2025 Travel from Last 3 Months Family History [...] Mother Genevieve Velázquez Diabetes Paternal Grandfather Abel Calderonnes Hypertension Paternal Grandfather Abel Eber Bipolar disorder Paternal Grandmother Elinor Eber Mental illness Paternal Grandmother Elinor Eber Depression Sister Mannie Velázquez Relation Name Status Comments Father Rashida Velázquez Alive Maternal Grandfather Maternal Grandmother Anamaria Betsy Mother Genevieve Velázquez Alive Paternal Grandfather Abel Calderonnes Alive Paternal Grandmother Elinor Eber Alive Sister Mannie Velázquez Alive Social History [...] Mass Index 51.27 02/28/2025 11:46 AM EDT Plan of Treatment Health Maintenance Due [...] - PCV) 2024 COVID-19 Vaccine (1 - 2024-2 6 season) 2025 Influenza Vaccine (#1) 2025 , 03/08/2019, 03/05/2018 Diabetes Screening 12/27/2025 12/27/2024, 11/04/2024, 11/04/2024 Zoster Vaccines (1 of 2) 09/17/2055 BMI Intervention Completed 02/28/2025, 11/22/2024 HIB Vaccines Aged Out No longer [...] Procedure Name Priority Date/Time Associated Diagnosis Comments BMP BASIC METABOLIC PANEL STAT 12/27/2024 9:59 AM EDT from Last 3 Months or Most Recently Relevant to Health Maintenance Results * (ABNORMAL) Basic Metabolic Panel (12/27/2024 9:59 AM EDT) Glucose 94 74 - 109 mg/dL 12/27/2024 10:30 AM EDT [facility] Remisol 2.0 SS BUN 8 7 - 25 mg/dL 12/27/2024 10:30 AM EDT [facility] Remisol 2.0 SS Creatinine 0.84 0.60 - 1.20 mg/dL 12/27/2024 10:30 AM EDT [facility] Remisol 2.0 SS Sodium 136 136 - 145 mmol/L 12/27/2024 10:30 AM EDT [facility] Remisol 2.0 SS Potassium 2.8(A) 3.5 - 5.1 mmol/L 12/27/2024 10:30 AM EDT [facility] Remisol 2.0 SS Comment:Critical Result S_K: 2.8 Called to and read back by: PRADIP MORE at: 12/27/2024 10:30:13 by:[email or web address] [id number] Chloride 91(L) 98 - 110 mmol/L 12/27/2024 10:30 AM EDT [facility] Remisol 2.0 SS CO2 33(H) 21 - 31 mmol/L 12/27/2024 10:30 AM EDT [facility] Remisol 2.0 SS Anion Gap 12.0(H) 2.0 - 11.0 12/27/2024 10:30 AM EDT [facility] Remisol 2.0 SS Calcium 9.7 8.6 - 10.2 mg/dL 12/27/2024 10:30 AM EDT [facility] Remisol 2.0 SS BUN/Creatinine Ratio 9.5 6.0 - 22.0 12/27/2024 10:30 AM EDT [facility] Remisol 2.0 SS EGFR 103 >=60 mL/min/1.7 3m2 12/27/2024 10:30 AM EDT [facility] Remisol 2.0 SS Comment:eGFR calculation per formed using the CKD-EPI 2020 equation (race variable excluded) Blood 12/27/2024 9:59 AM EDT 12/27/2024 10:02 AM EDT [facility] LAB - 12/27/2024 10:30 AM EDT Performed by [facility], [address] [place] [address] Fernando Flores MD LAB BLOOD ORDERABLES Final Res ult [facility] [address] [place] [address], [facility] Remisol 2.0 SS Pathology Department [address] [place] [address] from Last 3 Months or Most Recently Relevant to Health Maintenance Insurance ZAIRE WOOD [id number] JOSE HARDIN Care Teams Proofsheet Corrector Relationship Specialty Start Date End Date Lenny Duncan MD [address] [facility] [address] [place]AI[place]ON [id number] PCP - General Internal Medicine 09/10/24
--- OUTSIDE RECORDS SUMMARY | 2025-04-27 20:44 | XMS_ITS | Encounter Summary ---
Author Organization [facility] Address [address] [place] [address] Care Team Providers Care Service Center Appraiser Name Role Phone Lenny Duncan MD Primary Care Provider Encounter Details Date Type Department Care Team ([facility] Contact Info) Description 03/01/20[facility] [address] [place] [address] Elvia Martinez MA Colitis, not otherwise specified; Gastroparesis; Generalized rebound abdominal tenderness Social History Tobacco [...] encounter Visit Diagnoses Diagnosis Colitis, not otherwise specified Gastroparesis Generalized rebound abdominal tenderness documented in this encounter Care Teams Service Center Appraiser Relationship Specialty Start Date End Date Lenny Duncan MD [address] [facility] [address] [place] [address] PCP - General Internal Medicine 09/10/24 documented as of this encounter
--- OUTSIDE RECORDS SUMMARY | 2025-04-27 20:45 | XMS_ITS | Encounter Summary ---
Author Organization [facility] Address [address] [facility] [place] [address] Care Team Providers Care Broadcast Checker Name Role Phone Lenny Duncan MD Primary Care Provider [phone] Encounter Details Date Type Department Care Team (Latest Contact Info) Description 04/26/2025 Travel Social History Tobacco Use Types Packs/Day [...] on filedocumented in this encounter Care Teams Broadcast Checker Relationship Specialty Start Date End Date Lenny Duncan MD [address] [facility] [address] [place] [id number] PCP - General Internal Medicine 09/10/24 documented as of this encounter
--- OUTSIDE RECORDS SUMMARY | 2025-04-27 20:45 | XMS_ITS | Encounter Summary ---
Author Organization [facility] Address [address] [place] [address] Care Team Providers Care Vehicle Insurance Agent Name Role Phone Lenny Duncan MD Primary Care Provider [phone] Reason for Visit * Reason Onset Date Comments Stim check 04/20/2025 Encounter Details Date Type Department Care Team ([facility] Contact Info) Description 04/20/2025 Telephone [facility] - [facility] [address] [place] [address] [address] [place] [address] [facility] [place] [address] Stim check Social History Tobacco Use Types Packs/Day Years [...] encounter Miscellaneous Notes * Telephone Encounter - Ady Nguyen - 04/20/2025 12:43 PM EST Call Back Number: [phone] Person calling (patient/caregiver/facility/etc): Triny Patient's provider: Brief description of call: Pt needs to schedule a stim check appt If request is urgent, was a warm transfer to the clinic attempted? []Yes []No If yes, please document the outcome of the warm transfer: If the caller reports any of the following symptoms for an established patient STOP and WARM transfer to the office: Nausea/vomiting Abdominal pain Line issues GI bleeding - rectal bleeding; vomiting blood documented in this encounter Plan of Treatment Not on file documented as of this encounter Visit Diagnoses Not on filedocumented in this encounter Care Teams Vehicle Insurance Agent Relationship Specialty Start Date End Date Lenny Duncan MD [address] [place] [address] [address] [place] [address] PCP - General Internal Medicine 09/10/24 documented as of this encounter
--- OUTSIDE RECORDS SUMMARY | 2025-04-27 20:45 | XMS_ITS | Encounter Summary ---
Author Organization [facility] Address [address] [place] [address] Care Team Providers Care Employee Development Specialist Name Role Phone Lenny Duncan MD Primary Care Provider [phone] Reason for Visit * Reason Onset Date Comments symptoms 04/14/2025 Encounter Details Date Type Department Care Team ([facility] Contact Info) Description 04/14/2025 [facility] [address] [place] [phone] Stephanie Keys PA [address] [facility] [place] [address] symptoms Social History Tobacco Use Types Packs/Day Years [...] encounter Miscellaneous Notes * Telephone Encounter - Margret Saúl - 04/14/2025 12:52 PM EST Call Back Number: [phone] Person calling (patient/caregiver/facility/etc): Mother Patient's provider: Brief description of call: Pt needs to reschedule stim check If request is urgent, was a warm [...] on filedocumented in this encounter Care Teams Employee Development Specialist Relationship Specialty Start Date End Date Lenny Duncan MD [address] [place] [address] [address] [place] [address] PCP - General Internal Medicine 09/10/24 documented as of this encounter
== END ==
LOC: SL 20:38
PROVIDERS: PCP Nurse Practitioner Family; Visit Provider Nurse Practitioner Family
DX: G47.30 Sleep apnea, unspecified (principal)

== ENCOUNTER 2025-05-03 14:34 | Outpatient (CLI) | payer OTHER, SELFPAY ==
--- OUTSIDE RECORDS SUMMARY | 2025-03-03 15:16 | XMS_ITS | Encounter Summary ---
[facility] Organization [facility] Address [address] [place] [address] Care Team Providers Care Therapist Name Role Phone SinBecca MARYANN Primary Care Provider [phone] Reason for Visit * Reason Comments Vomiting * Auth/Cert Specialty Diagnoses / Procedures Referred By Contac t Referred To Contact Diagnoses Intractable nausea and vomiting Referral ID Status Reason Start Date Expiration Date Visits Re quested Visits Authorized [id number] 1 1 Encounter Details Date Type Department Care Team (Late st Contact Info) Description 03/03/2025 4:16 PM EDT - 03/04/2025 4:52 PM EDT Hospital Encounter [facility] [address] [place] [id number] Martha Deras MD [address] [place] [address] Mustapha Canales, [address] [facility] [address] [place] [address] Eduar Emmanuel MD [address] [facility] [address] [place] [address] Intractable nausea and vomiting (Primary Dx); Gastroparesis; Hypokalemia; Dehydration; Cannabis use disorder Discharge Disposition: Home or Self Care Social History Tobacco Use Types Packs/Day Years Used Date Smoking Tobacco: Never Smokeless Tobacco: Never Alcohol Use Standard Drinks/Week Comments Yes 0 (1 standard drink = 0.6 oz pur e alcohol) [facility] Utilities Answer Date Recorded In the past 12 months has th e [employer], [employer], oil, or water [employer] threatened to shut off services in your [...] GED or equivalent No 10/01/2024 Preferred Language Tunisian 10/01/2024 Comments No Sex and Gender Information [...] documented in this encounter Functional Status * AUDIT-C (Alcohol Use Disorders Identification Test) Question Answer Date of Assessment Author AUDIT-C Score 3 03/03/2025 9:35 PM EDT Isaias Mak RN Q1: How often do you have a drink containing alcohol? Monthly or less 03/03/2025 9:35 PM EDT Isaias Marina RN Q2: How many drinks containing alcohol do you have on a typical day when you are drinking? 3 or 4 03/03/2025 9:35 PM EDT Isaias Marina RN Q3: How often do you have six or more drinks on one occasion? Less than monthly 03/03/2025 9:35 PM EDT Isaias Marina RN * Calculated C-SSRS Risk Score (Lifetime/Recent) Answer Date of Assessment Author No Risk Indicated 03/03/2025 5:54 PM EDT Luisa Marshall RN * [place] Suicide Severity Rating Scale (Screener/Recent Self-Report) Question Answer Date of Assessment Author 1. Wish to be (Past 1 Month) No 025 5:54 PM EDT Luisa Marshall RN 2. Non-Specific Active Suici apolonia Thoughts (Past 1 Month) No 03/03/2025 5:54 PM EDT Mago Marshall RN 6. Suicidal Behavior (Lifetime) No 5:54 PM EDT Luisa Marshall RN documented as of this encounter Discharge Summaries * Eduar Emmanuel MD - 03/04/2025 4:06 PM EDT Images from the original note were not included. [facility] Medicine Services DISCHARGE SUMMARY Patient Name: [...] a 19 y.o. female who presented to [facility] with a 1-day history of intractable nausea and vomiting. She has a history of chronic gastroparesis and was found to have significant hypokalemia upon arrival at our emergency department. She has a history of a gastric stimulator that was placed at the [facility] earlier this year in December. She has a known diagnosis of gastroparesis and has been under the care of gastroenterologists at [facility]. She also reports she sees GI Dr Alexis locally. In 12/2024, she had a gastric stimulator implanted. This is her first flare-up since the implantation. Her current symptoms began last , characterized by frequent vomiting. She sought emergency care in [facility] on Friday evening, where she received IV [...] she discuss this further with her local apron operator and with the motility clinic at [facility]. - follow up with her motility clinic [...] mother both say they will discuss these lesionswith the patient's gastroenterology at their upcoming GI [...] MD 03/03/2025 7:21 PM EDT Workstation ID: [id number] I have personally reviewed the therapy plans: [...] minutes on this discharge activity which included: [id number] with the patient, reviewing the data in the system, coordination of the care with the nursing staff as well as consultants, documentation, and entering orders. documented in this encounter Discharge Instructions * Attachments The following attachments cannot be sent through Care Everywhere. * Slow Stomach Emptying (Gastroparesis): What to Know (Tunisian) documented in this encounter Medications at Time [...] from the original note were not included. [facility] Medicine Services HISTORY AND PHYSICAL Patient Name: Triny Velázquez : 2005 Primary Care Physician: Becca Sin APRN Date of admission: 03/03/2025 Subjective Subjective Chief Complaint: Intractable N/V HPI: Triny Velázquez is a 19 y.o. female Reason for Admit: Intractable nausea and vomiting. Karol Huynh is a 19-year-old female who presented to [facility] with a 1-day history of intractable nausea and vomiting. She has a history of chronic gastroparesis and was found to have significant hypokalemia upon arrival at our emergency department. She is currently receiving IV potassium replacement. She has a history of a gastric stimulator that was placed at the [facility] earlier this year in December. She has a known diagnosis of gastroparesis and has been under the care of gastroenterologists at [facility]. In 12/2024, she had a gastric stimulator implanted. This is her first flare-up since the implantation. Her current symptoms began last , characterized by frequent vomiting. She sought emergency care in [facility] on Friday evening, where she received IV [...] Procedure: ESOPHAGOGASTRODUODENOSCOPY; Surgeon: Linwood John MD; Location: [facility]; Service: Gastroenterology; Laterality: N/A; Family History: [...] Squamous Epithelial Cells, UA 3-6 7-12 Specific [place], UA 1.007 1.017 Ketones, UA 40 mg/dL [...] MD 03/03/2025 7:21 PM EDT Workstation ID: [id number] Assessment & Plan Assessment & Plan 1. [...] Alexandra Canales DO 03/03/25 Patient or patient client services representative verbalized consent for the use of [...] Becca Sin APRN : 2005 Room Number: 03/22 JANELLE Provider Statement: Patient or patient client services representative verbalized consent for the use of [...] Procedure: ESOPHAGOGASTRODUODENOSCOPY; Surgeon: Linwood John MD; Location: [facility]; Service: Gastroenterology; Laterality: N/A; FAMILY HISTORY [...] triage vital signs and nursing notes. OF 19:29 EDT VITALS: BP - (!) 162/102 HR [...] pH, UA 5.5 5.0 - 8.0 Specific [place], UA 1.017 1.005 - 1.030 Glucose, UA [...] MD 03/03/2025 7:21 PM EDT Workstation ID: [id number] ORDERS PLACED DURING THIS VISIT: Orders Placed [...] IVPB (10 mEq Intravenous New Bag 03/03/25 1849) And potassium chloride 10 mEq in 100 [...] 10 mg (10 mg Intravenous Given 03/03/25 172) PROCEDURES Procedures PROGRESS, DATA ANALYSIS, CONSULTS, AND [...] Course as of 03/03/251928 Stefanie Mar 03, 2025 174 Twelve-lead ECG independently interpreted by myself demonstrates normal sinus rhythm with a rate of 91, there is no identified ST segment elevation or depression. There is significant artifact from the patient's gastric stimulator [KB] 1822 Laboratory workup independently interpreted by myself demonstrates significant hypokalemia, a leukocytosis [KB] 1926 CT scan of the abdomen and pelvis [...] a voice recognition program. Note Disclaimer: At [facility], we believe that sharing information builds trust and better relationships. You are receiving this note because you recently visited [facility]. It is possible you will see [...] 03/04/2025 11:45 AM EDT Continued Stay Note [facility] Patient Name: Triny Velázquez Today's Date: 03/04/2025 Admit Date: 03/03/2025 Plan: Home Discharge Plan Row Name 03/04/25 1359 Plan Plan Home Plan Comments I spoke with patient in regards to discharge planning. SHe reports being IADL, lives with family located in [facility]. She has [employer]. Her PCP is Michell Sin. She has transportation for home. complex human resources manager is following for discharge planning needs. [...] - 2.2 mg/dL 03/04/2025 11:58 AM EDT [facility] Blood Venipuncture / Unknown 03/04/2025 11:24 AM EDT 03/04/2025 11:29 AM EDT us Oscar Canales DO LAB BLOOD ORDERABLES Final Res ult [facility]
[address] [place] [address], * (ABNORMAL) Comprehensive Metabolic Panel (03/04/2025 11:24 AM EDT) Pathologist [facility] [place] Glucose 98 65 - 99 mg/dL 03/04/2025 11:58 AM EDT [facility] BUN 6.1 6.0 - 20.0 mg/dL 03/04/2025 11:58 AM EDT [facility] Creatinine 0.63 0.57 - 1.00 mg/dL 03/04/2025 11:58 AM EDT [facility] Sodium 138 136 - 145 mmol/L 03/04/2025 11:58 AM EDT [facility] Potassium 3.1(L) 3.5 - 5.2 mmol/L 03/04/2025 11:58 AM EDT [facility] Chloride 95(L) 98 - 107 mmol/L 03/04/2025 11:58 AM EDT [facility] CO2 26.7 22.0 - 29.0 mmol/L 03/04/2025 11:58 AM EDT [facility] Calcium 9.5 8.6 - 10.5 mg/dL 03/04/2025 11:58 AM EDT [facility] Total Protein 7.4 6.0 - 8.5 g/dL 03/04/2025 11:58 AM [facility] Albumin 4.4 3.5 - 5.2 g/dL 03/04/2025 11:58 AM [facility] ALT (SGPT) 15 1 - 33 U/L 03/04/2025 11:58 AM [facility] AST (SGOT) 21 1 - 32 U/L 03/04/2025 11:58 AM [facility] Alkaline Phosphatase 109 39 - 117 U/L 03/04/2025 11:58 AM [facility] Total Bilirubin 0.8 0.0 - 1.2 mg/dL 03/04/2025 11:58 AM [facility] Globulin 3.0 gm/dL 03/04/2025 11:58 AM [facility] Comment:Calculated Result A/G Ratio 1.5 g/dL 03/04/2025 11:58 AM [facility] BUN/Creatinine Ratio 9.7 7.0 - 25.0 03/04/2025 11:58 AM [facility] Anion Gap 16.3(H) 5.0 - 15.0 mmol/L 03/04/2025 11:58 AM [facility] eGFR 131.2 >60.0 mL/min/1.7 3 03/04/2025 11:58 AM [facility] Blood Venipuncture / Unknown 03/04/2025 11:24 AM EDT 03/04/2025 11:29 AM [facility] - 03/04/2025 11:58 AM T GFR Categories in Chronic Kidney Disease (CKD) [...] include race as a factor us Mustapha Oscar Canales DO LAB BLOOD ORDERABLES Final Res ult [facility]
[address] [id number], * (ABNORMAL) CBC Auto Differential (03/04/2025 11:23 AM EDT) WBC 12.80(H) 3.40 - 10.80 10*3/mm3 03/04/2025 11:36 AM EDT [facility] RBC 5.32(H) 3.77 - 5.28 10*6/mm3 03/04/2025 11:36 AM EDT [facility] Hemoglobin 12.4 12.0 - 15.9 g/dL 03/04/2025 11:36 AM EDT [facility] Hematocrit 40.3 34.0 - 46.6 % 03/04/2025 11:36 AM EDT [facility] MCV 75.8(L) 79.0 - 97.0 fL 03/04/2025 11:36 AM EDT [facility] MCH 23.3(L) 26.6 - 33.0 pg 03/04/2025 11:36 AM EDT [facility] MCHC 30.8(L) 31.5 - 35.7 g/dL 03/04/2025 11:36 AM EDT [facility] RDW 15.8(H) 12.3 - 15.4 % 03/04/2025 11:36 AM EDT [facility] RDW-SD 42.5 37.0 - 54.0 fl 03/04/2025 11:36 AM EDT [facility] MPV 8.3 6.0 - 12.0 fL 03/04/2025 11:36 AM EDT [facility] Platelets 277 140 - 450 10*3/mm3 03/04/2025 11:36 AM EDT [facility] Neutrophil % 89.3(H) 42.7 - 76.0 % 03/04/2025 11:36 AM [facility] Lymphocyte % 6.6(L) 19.6 - 45.3 % 03/04/2025 11:36 AM [facility] Monocyte % 2.8(L) 5.0 - 12.0 % 03/04/2025 11:36 AM [facility] Eosinophil % 0.1(L) 0.3 - 6.2 % 03/04/2025 11:36 AM [facility] Basophil % 0.2 0.0 - 1.5 % 03/04/2025 11:36 AM [facility] Immature Grans % 1.0(H) 0.0 - 0.5 % 03/04/2025 11:36 AM [facility] Neutrophils, Absolute 11.42(H) 1.70 - 7.00 10*3/mm3 03/04/2025 11:36 AM [facility] Lymphocytes, Absolute 0.85 0.70 - 3.10 10*3/mm3 03/04/2025 11:36 AM [facility] Monocytes, Absolute 0.36 0.10 - 0.90 10*3/mm3 03/04/2025 11:36 AM [facility] Eosinophils, Absolute 0.01 0.00 - 0.40 10*3/mm3 03/04/2025 11:36 AM [facility] Basophils, Absolute 0.03 0.00 - 0.20 10*3/mm3 03/04/2025 11:36 AM [facility] Immature Grans, Absolute 0.13(H) 0.00 - 0.05 10*3/mm3 03/04/2025 11:36 AM [facility] nRBC 0.0 0.0 - 0.2 /100 WBC 03/04/2025 11:36 AM [facility] Blood Venipuncture / Unknown 03/04/2025 11:23 AM EDT 03/04/2025 11:29 AM EDT us Mustapha Canales DO LAB BLOOD ORDERABLES Final Res ult [facility]
[address] [id number], * CT Abdomen Pelvis Without Contrast (03/03/2025 [...] MD 03/03/2025 7:21 PM EDT Workstation ID: [id number] Narrative 03/03/2025 7:[address] ABDOMEN [...] MD 03/03/2025 7:21 PM EDT Workstation ID: [id number] Martha Deras MD IM CT ORDERABLES Final Result * Telemetry Scan (03/03/2025 6:53 PM EDT) [facility] ECG ORDERABLES Final Result * ECG 12 [...] Confirmed By: MARTHA DERAS MD Procedure Note Matrha Deras MD - 03/03/2025 Test Reason : [...] CBC Auto Differential (03/03/2025 5:05 PM EDT) Pathologist [facility] [place] WBC 16.78(H) 3.40 - 10.80 10*3/mm3 03/03/2025 5:37 PM EDT [facility] RBC 5.55(H) 3.77 - 5.28 10*6/mm3 03/03/2025 5:37 PM EDT [facility] Hemoglobin 12.8 12.0 - 15.9 g/dL 03/03/2025 5:37 PM EDT [facility] Hematocrit 41.3 34.0 - 46.6 % 03/03/2025 5:37 PM EDT [facility] MCV 74.4(L) 79.0 - 97.0 fL 03/03/2025 5:37 PM EDT [facility] MCH 23.1(L) 26.6 - 33.0 pg 03/03/2025 5:37 PM EDT [facility] MCHC 31.0(L) 31.5 - 35.7 g/dL 03/03/2025 5:37 PM EDT [facility] RDW 16.4(H) 12.3 - 15.4 % 03/03/2025 5:37 PM EDT [facility] RDW-SD 41.4 37.0 - 54.0 fl 03/03/2025 5:37 PM EDT [facility] MPV 8.5 6.0 - 12.0 fL 03/03/2025 5:37 PM EDT [facility] Platelets 318 140 - 450 10*3/mm3 03/03/2025 5:37 PM EDT [facility] Neutrophil % 64.9 42.7 - 76.0 % 03/03/2025 5:37 PM EDT [facility] Lymphocyte % 22.3 19.6 - 45.3 % 03/03/2025 5:37 PM EDT [facility] Monocyte % 11.2 5.0 - 12.0 % 03/03/2025 5:37 PM EDT [facility] Eosinophil % 0.2(L) 0.3 - 6.2 % 03/03/2025 5:37 PM EDT [facility] Basophil % 0.4 0.0 - 1.5 % 03/03/2025 5:37 PM EDT [facility] Immature Grans % 1.0(H) 0.0 - 0.5 % 03/03/2025 5:37 PM EDT [facility] Neutrophils, Absolute 10.90(H) 1.70 - 7.00 10*3/mm3 03/03/2025 5:37 PM EDT [facility] Lymphocytes, Absolute 3.74(H) 0.70 - 3.10 10*3/mm3 03/03/2025 5:37 PM EDT [facility] Monocytes, Absolute 1.88(H) 0.10 - 0.90 10*3/mm3 03/03/2025 5:37 PM EDT [facility] Eosinophils, Absolute 0.04 0.00 - 0.40 10*3/mm3 03/03/2025 5:37 PM EDT [facility] Basophils, Absolute 0.06 0.00 - 0.20 10*3/mm3 03/03/2025 5:37 PM EDT [facility] Immature Grans, Absolute 0.16(H) 0.00 - 0.05 10*3/mm3 03/03/2025 5:37 PM EDT [facility] nRBC 0.0 0.0 - 0.2 /100 WBC 03/03/2025 5:37 PM EDT [facility] Blood Venipuncture / Unknown 03/03/2025 5:05 PM EDT 03/03/2025 5:32 PM EDT Martha Deras MD LAB BLOOD ORDERABLES Final Resul t [facility]
[address] [place] [address], * Phosphorus (03/03/2025 5:05 PM EDT) Phosphorus 2.7 2.5 - 4.5 mg/dL 03/03/2025 6:00 PM EDT [facility] Blood Venipuncture / Unknown 03/03/2025 5:05 PM EDT 03/03/2025 5:32 PM EDT us Martha Deras MD LAB BLOOD ORDERABLES Final Resul t Performing Organization Address [facility] de Phone Number [facility]
[address] [place] [address], [place] [phone] * Magnesium (03/03/2025 5:05 PM EDT) Magnesium 2.0 1.7 - 2.2 mg/dL 03/03/2025 6:18 PM EDT [facility] Blood Venipuncture / Unknown 03/03/2025 5:05 PM EDT 03/03/2025 5:32 PM EDT us Martha Deras MD LAB BLOOD ORDERABLES Final Resul t Performing Organization Address [facility] de Phone Number [facility]
[address] [place] [address], [place] [phone] * Lipase (03/03/2025 5:05 PM EDT) Lipase 17 13 - 60 U/L 03/03/2025 6:00 PM EDT [facility] Blood Venipuncture / Unknown 03/03/2025 5:05 PM EDT 03/03/2025 5:32 PM EDT us Martha Deras MD LAB BLOOD ORDERABLES Final Resul t Performing Organization Address [facility] de Phone Number [facility]
[address] [place] [address], [place] [phone] * (ABNORMAL) Comprehensive Metabolic Panel (03/03/2025 5:05 PM EDT) Glucose 75 65 - 99 mg/dL 03/03/2025 6:20 PM EDT [facility] BUN 7.8 6.0 - 20.0 mg/dL 03/03/2025 6:20 PM EDT [facility] Creatinine 0.78 0.57 - 1.00 mg/dL 03/03/2025 6:20 PM T [facility] Sodium 135(L) 136 - 145 mmol/L 03/03/2025 6:20 PM [facility] Potassium 2.6(LL) 3.5 - 5.2 mmol/L 03/03/2025 6:20 PM [facility] Chloride 89(L) 98 - 107 mmol/L 03/03/2025 6:20 PM T [facility] CO2 25.4 22.0 - 29.0 mmol/L 03/03/2025 6:20 PM [facility] Calcium 9.9 8.6 - 10.5 mg/dL 03/03/2025 6:20 PM [facility] Total Protein 7.2 6.0 - 8.5 g/dL 03/03/2025 6:20 PM [facility] Albumin 4.5 3.5 - 5.2 g/dL 03/03/2025 6:20 PM [facility] ALT (SGPT) 20 1 - 33 U/L 03/03/2025 6:20 PM [facility] AST (SGOT) 23 1 - 32 U/L 03/03/2025 6:20 PM [facility] Alkaline Phosphatase 111 39 - 117 U/L 03/03/2025 6:20 PM [facility] Total Bilirubin 0.8 0.0 - 1.2 mg/dL 03/03/2025 6:20 PM [facility] Globulin 2.7 gm/dL 03/03/2025 6:20 PM [facility] Comment:Calculated Result A/G Ratio 1.7 g/dL 03/03/2025 6:20 PM [facility] BUN/Creatinine Ratio 10.0 7.0 - 25.0 03/03/2025 6:20 PM [facility] Anion Gap 20.6(H) 5.0 - 15.0 mmol/L 03/03/2025 6:20 PM EDT [facility] eGFR 112.4 >60.0 mL/min/1.7 3 03/03/2025 6:20 PM EDT [facility] Blood Venipuncture / Unknown 03/03/2025 5:05 PM EDT 03/03/2025 5:32 PM EDT Narrative [facility] - 03/03/2025 6:20 PM EDT GFR [...] MD LAB BLOOD ORDERABLES Final Resul t [facility]
[address] [place] [address], * Fentanyl, Urine - Urine, Clean Catch (03/03/2025 3:12 PM EDT) Fentanyl, Urine Negative Negative 03/03/2025 9:50 PM EDT [facility] Urine Urine specimen obtained by clean catch procedure / Unknown Collection / Unknown 03/03/2025 3:12 PM EDT 03/03/2025 3:29 PM EDT Narrative [facility] - 03/03/2025 9:50 PM EDT Negative [...] particularly when unconfirmed results are used. us Mustapha Canales DO URINE ORDERABLES Final Result [facility]
[address] [place] [address], * (ABNORMAL) Urine Drug Screen - Urine, Clean Catch (03/03/2025 3:12 PM EDT) Pathologist [facility] [place] THC, Screen, Urine Positive(A) Negative 03/03 9:10 PM EDT [facility] Phencyclidine (PCP), Urine Negative Negative 03/03/2025 9:10 PM EDT [facility] Cocaine Screen, Urine Negative Negative 03/03/2025 9:10 PM EDT [facility] Methamphetamine, Ur Negative Negative 03/03/2025 9:10 PM EDT [facility] Opiate Screen Negative Negative 03/03/2025 9:10 PM EDT [facility] Amphetamine Screen, Urine Negative Negative 03/03/2025 9:10 PM EDT [facility] Benzodiazepine Screen, Urine Positive(A) Negative 03/03/2025 9:10 PM EDT [facility] Tricyclic Antidepressants Screen Negative Negative 03/03/2025 9:10 PM EDT [facility] Methadone Screen, Urine Negative Negative 03/03/2025 9:10 PM EDT [facility] Barbiturates Screen, Urine Negative Negative 03/03/2025 9:10 PM EDT [facility] Oxycodone Screen, Urine Negative Negative 03/03/2025 9:10 PM EDT [facility] Buprenorphine, Screen, Urine Negative Negative 03/03/2025 9:10 PM EDT [facility] Urine Urine specimen obtained by clean catch procedure / Unknown Collection / Unknown 03/03/2025 3:12 PM EDT 03/03/2025 3:29 PM EDT Narrative [facility] - 03/03/2025 9:10 PM EDT Cutoff [...] particularly when unconfirmed results are used. us Mustapha Canales DO URINE ORDERABLES Final Result [facility]
[address] [place] [address], [place] [phone] * (ABNORMAL) Urinalysis, Microscopic Only - Urine, Clean Catch (03/03/2025 3:12 PM EDT) RBC, UA 0-2 None Seen, 0-2 /HPF 03/03/2025 3:50 PM EDT [facility] WBC, UA 3-5(A) None Seen, 0-2 /HPF 03/03/2025 3:50 PM EDT [facility] Bacteria, UA 2+(A) None Seen /HPF 03/03/2025 3:50 PM EDT [facility] Squamous Epithelial Cells, UA 7-12(A) None Seen, 0-2 /HPF 03/03/2025 3:50 PM EDT [facility] Transitional Epithelial Cells, UA 0-2 0 - 2 /HPF 03/03/2025 3:50 PM EDT [facility] Hyaline Casts, UA 0-2 None Seen /LPF 03/03/2025 3:50 PM EDT [facility] Amorphous Crystals, UA Small/1+ None Seen /HPF 03/03/2025 3:50 PM EDT [facility] Methodology Manual Light Microscopy 03/03[facility]2025 [facility] Urine Urine specimen obtained by clean catch procedure / Unknown Collection / Unknown 03/03/2025 3:12 PM EDT 03/03/2025 3:29 PM EDT Martha Deras MD URINE ORDERABLES Final Result [facility]
[address] [place] [address], * (ABNORMAL) Urinalysis With Microscopic If Indicated (No Culture) - Urine, Clean Catch (03/03/2025 3:12 PM EDT) Color, UA Yellow Yellow, Straw 03/03/2025 3:50 PM EDT [facility] Appearance, UA Clear Clear 03/03/2025 3:50 PM EDT [facility] pH, UA 5.5 5.0 - 8.0 03/03/2025 3:50 PM EDT [facility] Specific [place], UA 1.017 1.005 - 1.030 03/03/2025 3:50 PM EDT [facility] Glucose, UA Negative Negative 03/03/2025 3:50 PM EDT [facility] Ketones, UA 40 mg/dL (2+)(A) Negative 03/03/2025 3:50 PM EDT [facility] Bilirubin, UA Negative Negative 03/03/2025 3:50 PM EDT [facility] Blood, UA Negative Negative 03/03/2025 3:50 PM EDT [facility] Protein, UA Trace(A) Negative 03/03/2025 3:50 PM EDT [facility] [facility] Leuk Esterase, UA Trace(A) Negative 03/03/2025 3:50 PM EDT [facility] Nitrite, UA Negative Negative 03/03/2025 3:50 PM EDT [facility] Urobilinogen, UA 1.0 E.U./dL 0.2 - 1.0 E.U./dL 03/03/2025 3:50 PM EDT [facility] Urine Urine specimen obtained by clean catch procedure / Unknown Collection / Unknown 03/03/2025 3:12 PM EDT 03/03/2025 3:29 PM EDT us Martha Deras MD URINE ORDERABLES Final Result Performing Organization Address City/[facility]/ZIP Co de Phone Number [facility]
[address] [place] [address], * POC Urine (03/03/2025 3:12 PM EDT) HCG, Urine, QL Negative Negative [facility] Lot Number [id number] [facility] Internal Positive Control Positive Positive, Passed [facility] Internal Negative Control Negative Negative, Passed [facility] Expiration Date [facility] Urine 03/03/2025 3:12 PM EDT us Martha Deras MD POINT OF CARE TEST ORDERABLES Fi nal Result Performing Organization Address [facility] de Phone Number [facility]
[address] [place] [address], [place] [phone] documented in this encounter Visit Diagnoses Diagnosis [...] is ineffective, Starting on Stefanie 03/03/25 at 2022, Use if no bowel movement after 12 hours. Hold for diarrhea Calcium Replacement - Follow Nurse / BPA Driven Protocol Open Order & Select [facility] Electrolyte Replacement Protocol Algorithm to View Details dexAMETHasone (DECADRON) injection 4 mg 4 mg, Intravenous, Every 6 Hours PRN, Nausea, Vomiting, Starting on Stefanie 03/03/25 at 2038, For IV administration. May be pushed over [...] BPA Driven Protocol Open Order & [facility] Electrolyte Replacement Protocol Algorithm to View Details [...] BPA Driven Protocol Open Order & [facility] Electrolyte Replacement Protocol Algorithm to View Details [...] point furthest from the patient s vein., [facility] PT requires failure of two alternative [...] use if patient is older than 65. ([facility]) Medication Applied 03/03/2025 10:05 PM EDT 1 [...] VTE Prophylaxis 2204 (Given - Provider: Isaias Marina, CHIP) 0845 (Given - Provider: Amelia Griffin RN) melatonin tablet 5 mg 5 mg, Oral, Nightly, First dose on Stefanie 03/03/25 at 2100 220 (Given - Provider: Isaias Marina, CHIP) metoclopramide (REGLAN) injection 10 mg (COMPLETED) 10 [...] ONLY 184 (New Bag - Provider: Luisa Marshall, CHIP)1951 (Hold - Provider: Luisa Marshall, RN - Reason: Loss of IV access)1999 [...] 20 mEq/hr on ECG monitored patients ONLY 220 (New Bag - Provider: Isaias Marina RN) [...] 20 mEq/hr on ECG monitored patients ONLY 2356 (New Bag - Provider: Isaias Marina RN) [...] point furthest from the patient s vein., [facility] PT requires failure of two alternative therapies prior to ordering promethazine IVPB. Has this patient failed two alternative therapies or cannot take oral/rectal promethazine? Yes, Please choose first prior alternative therapy that has failed: Zofran, Please choose second prior alternative therapy that has failed: Reglan 1951 (New Bag - Provider: Luisa Marshall RN) scopolamine patch 1 mg/72 hr 1 patch, Transdermal - scopolamine, Administer over 72 Hours, Every 72 Hours, First dose on Stefanie 03/03/25 at 2100, Do not apply if patient has history of glaucoma. Not recommended for use if patient is older than 65. ([facility]) 2204 (Medication Applied - Provider: Isaias Marina RN) 165 (Due: Medication Removed - Provider: Automatic Discharge Provider - Comment: Time automatically adjusted from order being discontinued) sodium chloride 0.9 % bolus 1,000 mL (COMPLETED) 1,000 mL, Intravenous, at 2,000 mL/hr, Administer over 0.5 Hours, Once, On Stefanie 03/03/25 at 1444, For 1 dose 1726 (New Bag - Provider: Luisa Marshall RN) sodium chloride 0.9 % flush 10 mL 10 mL, Intravenous, Every 12 Hours Scheduled, First dose on Stefanie 03/03/25 at 2100 2204 (Given - Provider: Isaias Marina RN) 0850 (Canceled Entry - Provider: Amelia Grififn RN) Continuous Medication Order 03/02/2025 03/03/2025 03/04/2025 [...] BPA Driven Protocol Open Order & [facility] Electrolyte Replacement Protocol Algorithm to View Details dexAMETHasone (DECADRON) injection 4 mg 4 mg, Intravenous, Every 6 Hours PRN, Nausea, Vomiting, Starting on Fri03/03/25 at 2037, For IV administration. May be pushed over a minimum of 1 minute. 0540 (Given - Provid er: Isaias Marina RN) LORazepam (ATIVAN) tablet 1 mg 1 mg, Oral, Every 8 Hours PRN, Anxiety, Agitation, Starting on Fri03/03/25 at 2023, For 5 days, (CONCHA) Caution: Look alike/sound alike drug alert 2205 (Given - Provider: Isaias Marina RN) 0913 (Given - Provider: Amelia Griffin RN) Magnesium Standard Dose Replacement - Follow Nurse / BPA Driven Protocol Open Order & [facility] Electrolyte Replacement Protocol Algorithm to View Details nitroglycerin (NITROSTAT) SL tablet 0.4 mg 0.4 mg, Sublingual, Every 5 Minutes PRN, Chest Pain, Starting on Fri03/03/25 at 195, If Pain Unrelieved After 3 Doses Notify [...] IF ondansetron is ineffective., On hold since Fri03/03/2025 at 2034 until manually unheld 2034 (Held by provider - Provider: Mustapha Canales, DO - Reason: Other (Comment Required) - Comment: Elevated QT) 1853 (Unheld by provider - Provider: Automatic Discharge [...] Other (Comment Required) - Comment: Elevated QT) 185 (Unheld by provider - Provider: Automatic Discharge Provider) Phosphorus Replacement - Follow Nurse / BPA Driven Protocol Open Order & [facility] Electrolyte Replacement Protocol Algorithm to View Details [...] 60 Minutes, Once, On Stefanie 03/03/25 at 203, For 1 dose, Dose 3 of 6 [...] Stefanie 03/03/2025 at 2034 until manually unheld Or ondansetron [...] 1427 documented in this encounter Care Teams Therapist Relationship Specialty Start Date End Date Becca Sin APRN [address] [place] [address] [place] [id number] PCP - General Nurse Practitioner 10/01/24 documented as of this encounter
--- OUTSIDE RECORDS SUMMARY | 2025-03-22 10:30 | XMS_ITS | Encounter Summary ---
Author Organization [facility] Address [address] [place] [address] Care Team Providers Care Logging Crew Supervisor Name Role Phone Lenny Duncan MD Primary Care Provider [phone] Reason for Visit * Reason Comments Follow-up Encounter Details Date Type Department Care Team ([facility] Contact Info) Description 03/22/2025 10:30 AM EST [facility] [address] [place] [id number] Stephanie Keys PA [address] [place] [address], [address] [place] [address] Gastroparesis (Primary Dx) Social History [...] 15 minutes Triny Velázquez was located at [place] and I was located at [place] for this telemedicine/telephone encounter. We utilized [employer] integrated with [employer] for the encounter and Triny Velázquez and [...] Risk: MODERATE - Prescription drug management Physician Entertainment Dancer Supervision Attestation: The Supervising Physician Pina Scott was available to me by telecommunication.. No new problems were diagnosed during the visit, any/all problem(s) managed today have been managed previously by a physician in this practice. GENEVIEVE Crook [facility] 03/22/2025 [1] [...] Primary documented in this encounter Care Teams Logging Crew Supervisor Relationship Specialty Start Date End Date Lenny Duncan MD [address] [facility] [address] [place] [phone] PCP - General Internal Medicine 09/10/24 documented as of this encounter
--- OUTSIDE RECORDS SUMMARY | 2025-04-26 11:00 | XMS_ITS | Encounter Summary ---
Author Organization [facility] Address [address] [place] [address] Care Team Providers Care Bag Sealer Name Role Phone Lenny Duncan MD Primary Care Provider [phone] Encounter Details Date Type Department Care Team ([facility] st Contact Info) Description 04/26/2025 11:00 AM EST [facility] [address] [place] [address] [phone] Pina Scott MD [address] [place] [address], [address] [place] [address] Gastroparesis (Primary Dx) Social History [...] to vomiting and constipation Jaymie Asher MA [facility] - [facility]IC 04/26/2025 Cosigned by Pina Scott MD at 04/26/2025 12:24 PM EST Associated attestation - Pina Scott MD - 04/26/2025 12:24 PM EST Pt in office for stimulator interrogation and adjustment - completed as documented. Pina Scott MD [facility] - [facility] 04/26/2025 documented in this encounter Plan of Treatment Not on file documented as of this encounter Visit Diagnoses Diagnosis Gastroparesis- Primary documented in this encounter Care Teams Bag Sealer Relationship Specialty Start Date End Date Lenny Duncan MD [facility] [place] [address] [address] [place] [phone] PCP - General Internal Medicine 09/10/24 documented as of this encounter
--- OUTSIDE RECORDS SUMMARY | 2025-05-03 14:38 | XMS_ITS | Encounter Summary ---
Author Organization [facility] Address [address] [place] [address] Care Team Providers Care Test Engineering Technician Name Role Phone Lenny Duncan MD Primary Care Provider [phone] Encounter Details Date Type Department Care Team [...] on filedocumented in this encounter Care Teams Test Engineering Technician Relationship Specialty Start Date End Date Lenny Duncan MD [address] [facility] [address] [place] [id number] PCP - General Internal Medicine 09/10/24 documented as of this encounter
--- OUTSIDE RECORDS SUMMARY | 2025-05-03 14:39 | XMS_ITS | Clinical Summary ---
Author Organization [facility] Address [address] [facility] [address] [place] [address] Care Team Providers Care Travel Professional Name Role Phone Lenny Duncan MD Primary Care Provider [phone] Allergies No known active allergies Medications escitalopram [...] [facility] [address] [address] Pina Scott MD Gastroparesis (Primary Dx) 04/26/2025 Travel 04/20/2025 Telephone [facility] [address] [address] Stephanie Keys PA Stim check 04/14/2025 [facility] [address] [address] Stephanie Keys PA symptoms 03/22/2025 10:30 AM EST Telemedicine [facility] [address] [address] Stephanie Keys PA Gastroparesis (Primary Dx) 03/22/2025 Travel 03/01/2025 Orders Only [facility] [address] [address] Elvia Martinez MA Colitis, not otherwise specified; Gastroparesis; Generalized rebound abdominal tenderness 02/28/2025 11:30 AM EDT Office Visit [facility] [address] [address] Stephanie Keys PA Colitis, not otherwise specified (Primary Dx); Gastroparesis 02/28/2025 Travel 02/25/2025 Telephone [facility] [address] [place] [address] [address] Stephanie Keys PA general from Last 3 Months Family History Medical [...] Abel Calderonnes Bipolar disorder Paternal Grandmother Elinor Velázquez Mental illness Paternal Grandmother Elinor Calderonnes Depression Sister Mannie Velázquez Relation Name Status Comments Father Rashida Velázquez Alive Maternal Grandfather Maternal Grandmother Anamaria Bauerzwater Mother Genevieve Velázquez Alive Paternal Grandfather Abel [...] 6 season) 2025 Influenza Vaccine (#1) 2025 2, 03/08/2019, 03/05/2018 Diabetes Screening 12/27/2025 12/27/2024, 11/04/2024, [...] - 109 mg/dL 12/27/2024 10:30 AM EDT [facility] Remisol 2.0 SS BUN 8 7 - 25 mg/dL 12/27/2024 10:30 AM EDT [facility] Remisol 2.0 SS Creatinine 0.84 0.60 - 1.20 mg/dL 12/27/2024 10:30 AM EDT [facility] Remisol 2.0 SS Sodium 136 136 - 145 mmol/L 12/27/2024 10:30 AM EDT [facility] Remisol 2.0 SS Potassium 2.8(A) 3.5 - 5.1 mmol/L 12/27/2024 10:30 AM EDT [facility] Remisol 2.0 SS Comment:Critical Result S_K: 2.8 Called to and read back by: PRADIP MORE at: 12/27/2024 10:30:13 by:MUKUL [id number] Chloride 91(L) 98 - 110 mmol/L 12/27/2024 10:30 AM EDT [facility] Remisol 2.0 SS CO2 33(H) 21 - 31 mmol/L 12/27/2024 10:30 AM EDT [facility] Remisol 2.0 SS Anion Gap 12.0(H) 2.0 - 11.0 12/27/2024 10:30 AM EDT [facility] Remisol 2.0 SS Calcium 9.7 8.6 - 10.2 mg/dL 12/27/2024 10:30 AM EDT [facility] Remisol 2.0 SS BUN/Creatinine Ratio 9.5 6.0 - 22.0 12/27/2024 10:30 AM EDT [facility] Remisol 2.0 SS EGFR 103 >=60 mL/min/1.7 3m2 12/27/2024 10:30 AM EDT [facility] Remisol 2.0 SS Comment:eGFR calculation per formed using the CKD-EPI 2020 equation (race variable excluded) Blood 12/27/2024 9:59 AM EDT 12/27/2024 10:02 AM EDT [facility] - 12/27/2024 10:30 AM EDT Performed by [facility], [address] [place] [address] Fernando Flores MD LAB BLOOD ORDERABLES Final Res ult [facility] [address] [place] [address], [facility] Remisol 2.0 SS Pathology Department [address] [place] [address] from Last 3 Months or Most Recently Relevant to Health [place] [id number] [employer] Care Teams Travel Professional Relationship Specialty Start Date End Date Lenny Dnucan MD [address] [facility] [address] [place] [address] PCP - General Internal Medicine 09/10/24
--- OUTSIDE RECORDS SUMMARY | 2025-05-03 14:39 | XMS_ITS | Encounter Summary ---
Author Organization [facility] Address [address] [place] [address] Care Team Providers Care Pathologist Assistant Name Role Phone Lenny Duncan MD Primary Care Provider [phone] Reason for Visit * Reason Onset Date Comments symptoms 04/14/2025 Encounter Details Date Type Department Care Team ([facility] Contact Info) Description 04/14/2025 [facility] [address] [place] [address] Stephanie Keys PA [address] [facility] [place] [address] symptoms Social History Tobacco Use [...] 04/14/2025 12:52 PM EST Call Back Number: [phone] Person calling (patient/caregiver/facility/etc): Mother Patient's provider: Brief [...] on filedocumented in this encounter Care Teams Pathologist Assistant Relationship Specialty Start Date End Date Lenny Duncan MD [address] [place] [address] [address] [place] [address] PCP - General Internal Medicine 09/10/24 documented as of this encounter
--- OUTSIDE RECORDS SUMMARY | 2025-05-03 14:39 | XMS_ITS | Encounter Summary ---
Author Organization [facility] Address [address] [place] [address] Care Team Providers Care Employee Relations Consultant Name Role Phone Lenny Duncan MD Primary Care Provider [phone] Encounter Details Date Type Department Care Team ([facility] Contact Info) Description 03/01/2025 [facility] [address] [place] [phone] Elvia Martinez MA Colitis, not otherwise specified; [...] tenderness documented in this encounter Care Teams Employee Relations Consultant Relationship Specialty Start Date End Date Lenny Duncan MD [address] [facility] [address] [place] [address] PCP - General Internal Medicine 09/10/24 documented as of this encounter
--- OUTSIDE RECORDS SUMMARY | 2025-05-03 14:39 | XMS_ITS | Clinical Summary ---
Author Organization [facility] Address [address] [place] [address] Care Team Providers Care Bite Block Maker Name Role Phone Becca Sin APRN Primary Care Provider [phone] Allergies No known active allergies Medications Ipratropium-Alb [...] - 03/04/2025 4:52 PM EDT Hospital Encounter [address] [phone] Gomez Deras MD Varney, M Scott, DO [...] = 0.6 oz pur e alcohol) [facility] Utilities Answer Date Recorded In the past 12 months has th e electric, gas, oil, or water [employer] threatened to shut off services in your [...] GED or equivalent No 10/01/2024 Preferred Language Citizen Of [place] 10/01/2024 Comments No Sex and Gender Information [...] - 2.2 mg/dL 03/04/2025 11:58 AM EDT [facility] Blood Venipuncture / Unknown 03/04/2025 11:24 AM EDT 03/04/2025 11:29 AM EDT [facility] Oscar Canales DO LAB BLOOD ORDERABLES Final Res ult [facility]
[address] [place] [address], [place] [phone] * (ABNORMAL) Comprehensive Metabolic Panel (03/04/2025 11:24 AM EDT) Only the most recent of2 resultswithin the time period is included. Glucose 98 65 - 99 mg/dL 03/04/2025 11:58 AM EDT [facility] BUN 6.1 6.0 - 20.0 mg/dL 03/04/2025 11:58 AM EDT [facility] Creatinine 0.63 0.57 - 1.00 mg/dL 03/04/2025 11:58 AM EDT [facility] Sodium 138 136 - 145 mmol/L 03/04/2025 11:58 AM EDT [facility] Potassium 3.1(L) 3.5 - 5.2 mmol/L 03/04/2025 11:58 AM EDT [facility] Chloride 95(L) 98 - 107 mmol/L 03/04/2025 11:58 AM [facility] CO2 26.7 22.0 - 29.0 mmol/L 03/04/2025 11:58 AM [facility] Calcium 9.5 8.6 - 10.5 mg/dL 03/04/2025 11:58 AM [facility] Total Protein 7.4 6.0 - 8.5 g/dL 03/04/2025 11:58 AM [facility] Albumin 4.4 3.5 - 5.2 g/dL 03/04/2025 11:58 AM [facility] ALT (SGPT) 15 1 - 33 U/L 03/04/2025 11:58 AM [facility] AST (SGOT) 21 1 - 32 U/L 03/04/2025 11:58 AM [facility] Alkaline Phosphatase 109 39 - 117 U/L 03/04/2025 11:58 AM [facility] Total Bilirubin 0.8 0.0 - 1.2 mg/dL 03/04/2025 11:58 AM [facility] Globulin 3.0 gm/dL 03/04/2025 11:58 AM [facility] Comment:Calculated Result A/G Ratio 1.5 g/dL 03/04/2025 11:58 AM [facility] BUN/Creatinine Ratio 9.7 7.0 - 25.0 03/04/2025 11:58 AM [facility] Anion Gap 16.3(H) 5.0 - 15.0 mmol/L 03/04/2025 11:58 AM [facility] eGFR 131.2 >60.0 mL/min/1.7 3 03/04/2025 11:58 AM [facility] Blood Venipuncture / Unknown 03/04/2025 11:24 AM EDT 03/04/2025 11:29 AM [facility] - 03/04/2025 11:58 AM EDT GFR [...] DO LAB BLOOD ORDERABLES Final Res ult [facility]
[address] [place] [address], * (ABNORMAL) CBC Auto Differential (03/04/2025 11:23 AM EDT) Only the most recent of2 resultswithin the time period is included. WBC 12.80(H) 3.40 - 10.80 10*3/mm3 03/04/2025 11:36 AM EDT [facility] RBC 5.32(H) 3.77 - 5.28 10*6/mm3 03/04/2025 11:36 AM EDT [facility] Hemoglobin 12.4 12.0 - 15.9 g/dL 03/04/2025 11:36 AM EDT [facility] Hematocrit 40.3 34.0 - 46.6 % 03/04/2025 11:36 AM EDT [facility] MCV 75.8(L) 79.0 - 97.0 fL 03/04/2025 11:36 AM EDT [facility] MCH 23.3(L) 26.6 - 33.0 pg 03/04/2025 11:36 AM EDT [facility] MCHC 30.8(L) 31.5 - 35.7 g/dL 03/04/2025 11:36 AM EDT [facility] RDW 15.8(H) 12.3 - 15.4 % 03/04/2025 11:36 AM [facility] RDW-SD 42.5 37.0 - 54.0 fl 03/04/2025 11:36 AM [facility] MPV 8.3 6.0 - 12.0 fL 03/04/2025 11:36 AM [facility] Platelets 277 140 - 450 10*3/mm3 03/04/2025 11:36 AM [facility] Neutrophil % 89.3(H) 42.7 - 76.0 % 03/04/2025 11:36 AM [facility] Lymphocyte % 6.6(L) 19.6 - 45.3 % 03/04/2025 11:36 AM [facility] Monocyte % 2.8(L) 5.0 - 12.0 % 03/04/2025 11:36 AM [facility] Eosinophil % 0.1(L) 0.3 - 6.2 % 03/04/2025 11:36 AM [facility] Basophil % 0.2 0.0 - 1.5 % 03/04/2025 11:36 AM [facility] Immature Grans % 1.0(H) 0.0 - 0.5 % 03/04/2025 11:36 AM [facility] Neutrophils, Absolute 11.42(H) 1.70 - 7.00 10*3/mm3 03/04/2025 11:36 AM [facility] Lymphocytes, Absolute 0.85 0.70 - 3.10 10*3/mm3 03/04/2025 11:36 AM [facility] Monocytes, Absolute 0.36 0.10 - 0.90 10*3/mm3 03/04/2025 11:36 AM [facility] Eosinophils, Absolute 0.01 0.00 - 0.40 10*3/mm3 03/04/2025 11:36 AM [facility] Basophils, Absolute 0.03 0.00 - 0.20 10*3/mm3 03/04/2025 11:36 AM EDT [facility] Immature Grans, Absolute 0.13(H) 0.00 - 0.05 10*3/mm3 03/04/2025 11:36 AM EDT [facility] nRBC 0.0 0.0 - 0.2 /100 WBC 03/04/2025 11:36 AM EDT [facility] Blood Venipuncture / Unknown 03/04/2025 11:23 AM EDT 03/04/2025 11:29 AM EDT us Mustapha Canales DO LAB BLOOD ORDERABLES Final Res ult [facility]
[address] [place] [address], * CT Abdomen Pelvis Without Contrast (03/03/2025 [...] MD 03/03/2025 7:21 PM EDT Workstation ID: [id number] Narrative 03/03/2025 7:[address] ABDOMEN [...] MD 03/03/2025 7:21 PM EDT Workstation ID: [id number] us Gomez Deras MD IMG CT ORDERABLES Final Result * Telemetry Scan (03/03/2025 6:53 PM EDT) [facility] ECG ORDERABLES Final Result * [...] * Phosphorus (03/03/2025 5:05 PM EDT) Pathologist [facility] Phosphorus 2.7 2.5 - 4.5 mg/dL 03/03/2025 6:00 PM EDT [facility] Blood Venipuncture / Unknown 03/03/2025 5:05 PM EDT 03/03/2025 5:32 PM EDT us Gomez Deras MD LAB BLOOD ORDERABLES Final Resul t Performing Organization Address City/Special Care [facility]/ZIP Co de Phone Number [facility]
[address] [place] [address], [place] [phone] * Lipase (03/03/2025 5:05 PM EDT) Pathologist [facility] Lipase 17 13 - 60 U/L 03/03/2025 6:00 PM EDT [facility] Blood Venipuncture / Unknown 03/03/2025 5:05 PM EDT 03/03/2025 5:32 PM EDT us Gomez Deras MD LAB BLOOD ORDERABLES Final Resul t Performing Organization Address [facility]/[place] Co de Phone Number [facility]
[address] [place] [address], [place] [phone] * (ABNORMAL) Urinalysis, Microscopic Only - Urine, Clean Catch (03/03/2025 3:12 PM EDT) Pathologist [facility] RBC, UA 0-2 None Seen, 0-2 /HPF 03/03/2025 3:50 PM EDT [facility] WBC, UA 3-5(A) None Seen, 0-2 /HPF 03/03/2025 3:50 PM EDT [facility] Bacteria, UA 2+(A) None Seen /HPF 03/03/2025 3:50 PM EDT [facility] Squamous Epithelial Cells, UA 7-12(A) None Seen, 0-2 /HPF 03/03/2025 3:50 PM EDT [facility] Transitional Epithelial Cells, UA 0-2 0 - 2 /HPF 03/03/2025 3:50 PM EDT [facility] Hyaline Casts, UA 0-2 None Seen /LPF 03/03/2025 3:50 PM EDT [facility] Amorphous Crystals, UA Small/1+ None Seen /HPF 03/03/2025 3:50 PM EDT [facility] Methodology Manual Light Microscopy 03/03/2025 3:50 PM EDT [facility] Urine Urine specimen obtained by clean catch procedure / Unknown Collection / Unknown 03/03/2025 3:12 PM EDT 03/03/2025 3:29 PM EDT Gomez Deras MD URINE ORDERABLES Final Result [facility]
[address] [place] [address], * (ABNORMAL) Urinalysis With Microscopic If Indicated (No Culture) - Urine, Clean Catch (03/03/2025 3:12 PM EDT) Color, UA Yellow Yellow, Straw 03/03/2025 3:50 PM EDT [facility] Appearance, UA Clear Clear 03/03/2025 3:50 PM EDT [facility] pH, UA 5.5 5.0 - 8.0 03/03/2025 3:50 PM EDT [facility] Specific [place], UA 1.017 1.005 - 1.030 03/03/2025 3:50 PM EDT [facility] Glucose, UA Negative Negative 03/03/2025 3:50 PM EDT [facility] Ketones, UA 40 mg/dL (2+)(A) Negative 03/03/2025 3:50 PM EDT [facility] Bilirubin, UA Negative Negative 03/03/2025 3:50 PM EDT [facility] Blood, UA Negative Negative 03/03/2025 3:50 PM EDT [facility] Protein, UA Trace(A) Negative 03/03/2025 3:50 PM EDT [facility] Leuk Esterase, UA Trace(A) Negative 03/03/2025 3:50 PM EDT [facility] Nitrite, UA Negative Negative 03/03/2025 3:50 PM EDT [facility] Urobilinogen, UA 1.0 E.U./dL 0.2 - 1.0 E.U./dL 03/03/2025 3:50 PM EDT [facility] Urine Urine specimen obtained by clean catch procedure / Unknown Collection / Unknown 03/03/2025 3:12 PM EDT 03/03/2025 3:29 PM EDT Gomez Deras MD URINE ORDERABLES Final Result [facility]
[address] [place] [address], * (ABNORMAL) Urine Drug Screen - Urine, Clean Catch (03/03/2025 3:12 PM EDT) THC, Screen, Urine Positive(A) Negative 03/03 9:10 PM EDT [facility] Phencyclidine (PCP), Urine Negative Negative 03/03/2025 9:10 PM EDT [facility] Cocaine Screen, Urine Negative Negative 03/03/2025 9:10 PM EDT [facility] Methamphetamine, Ur Negative Negative 03/03/2025 9:10 PM EDT [facility] Opiate Screen Negative Negative 03/03/2025 9:10 PM EDT [facility] Amphetamine Screen, Urine Negative Negative 03/03/2025 9:10 PM EDT [facility] Benzodiazepine Screen, Urine Positive(A) Negative 03/03/2025 9:10 PM EDT [facility] Tricyclic Antidepressants Screen Negative Negative 03/03/2025 9:10 PM EDT [facility] Methadone Screen, Urine Negative Negative 03/03/2025 9:10 PM EDT [facility] Barbiturates Screen, Urine Negative Negative 03/03/2025 9:10 PM EDT [facility] Oxycodone Screen, Urine Negative Negative 03/03/2025 9:10 PM EDT [facility] Buprenorphine, Screen, Urine Negative Negative 03/03/2025 9:10 PM EDT [facility] Urine Urine specimen obtained by clean catch procedure / Unknown Collection / Unknown 03/03/2025 3:12 PM EDT 03/03/2025 3:29 PM EDT [facility] - 03/03/2025 9:10 PM EDT [...] Mustapha Canales DO URINE ORDERABLES Final Result [facility]
[address] [place] [address], * Fentanyl, Urine - Urine, Clean Catch (03/03/2025 3:12 PM EDT) Fentanyl, Urine Negative Negative 03/03/2025 9:50 PM EDT [facility] Urine Urine specimen obtained by clean catch procedure / Unknown Collection / Unknown 03/03/2025 3:12 PM EDT 03/03/2025 3:29 PM EDT Narrative [facility] - 03/03/2025 9:50 PM EDT [...] URINE ORDERABLES Final Result Performing Organization Address City/Special Care Hospital/ZIP Co de Phone Number [facility]
[address] [place] [address], [place] [phone] * POC Urine (03/03/2025 3:12 PM EDT) HCG, Urine, QL Negative Negative [facility] Lot Number [id number] [facility] Internal Positive Control Positive Positive, Passed [facility] Internal Negative Control Negative Negative, Passed [facility] Expiration Date [facility] Urine 03/03/2025 3:12 PM EDT Gomez Deras MD POINT OF CARE TEST ORDERABLES Fi nal Result [facility]
[address] [place] [address], [place] [phone] from [place] [address] [place] [id number] [facility] PATHWAY HMO Advance Directives * CPR (Attempt [...] Of Support Discussed With: Patient Care Teams Bite Block Maker Relationship Specialty Start Date End Date Becca Sin APRN [address] [place] [address] [place] [phone] PCP - General Nurse Practitioner 10/01/24
--- OUTSIDE RECORDS SUMMARY | 2025-05-03 14:39 | XMS_ITS | Encounter Summary ---
Author Organization [facility] Address [address] [place] [address] Care Team Providers Care Occupational Nurse Name Role Phone Lenny Duncan MD Primary Care Provider [phone] Encounter Details Date Type Department Care Team [...] on filedocumented in this encounter Care Teams Occupational Nurse Relationship Specialty Start Date End Date Lenny Duncan MD [address] [place] [id number] PCP - General Internal Medicine 09/10/24 documented as of this encounter
--- OUTSIDE RECORDS SUMMARY | 2025-05-03 14:39 | XMS_ITS | Encounter Summary ---
Author Organization [facility] Address [address] [place] [address] Care Team Providers Care Laboratory Mechanic Helper Name Role Phone Lenny Duncan MD Primary Care Provider [phone] Reason for Visit * Reason Onset Date Comments Stim check 04/20/2025 Encounter Details Date Type Department Care Team ([facility] Contact Info) Description 04/20/2025 Telephone [facility] [address] [place] [id number] [address] [place] [address] [place] [address] Stim check Social History Tobacco [...] 04/20/2025 12:43 PM EST Call Back Number: [phone] Person calling (patient/caregiver/facility/etc): Triny Patient's provider: Brief [...] on filedocumented in this encounter Care Teams Laboratory Mechanic Helper Relationship Specialty Start Date End Date Lenny Duncan MD [address] [place] [address] [address] [place] [address] PCP - General Internal Medicine 09/10/24 documented as of this encounter
[2025-05-03 15:42] LABS: Free T4 (Free Thyroxine) 0.87 ng/dl (0.78-2.19)
[2025-05-03 15:52] LABS: Thyroid Stimulating Hormone 1.39 uIU/mL (0.465-4.68)
== END 2025-05-03 23:59 | disposition home or self-care (01) ==
LOC: LAB 14:34
PROVIDERS: PCP Nurse Practitioner Family; Visit Provider Nurse Practitioner Acute Care
DX: F33.9 Major depressive disorder, recurrent, unspecified (principal); F41.1 Generalized anxiety disorder
CPT/HCPCS: 36415; 84439; 84443